=== PATIENT | female | born 1960 | race African-American/Black ===

== ENCOUNTER 2018-03-17 13:06 | Observation (INO) | payer BC, OTHER ==
[~2018-03-17] VITALS: Ht 157.5 cm; Wt 43.6 kg
[2018-03-17] MEDS ORDERED: IV NORMAL SALINE 1,000ML 1,000 ML IV ONE (14:00)
[2018-03-17 14:37] LABS: BASO # 0.1 x10^3/uL (0.0-0.2); BASO % 1 % (0-3); EOS % 0 % (0-3); HEMATOCRIT 34.3 % (36.0-47.0); HEMOGLOBIN 10.7 g/dL (12.0-15.5); LYMPH # 1.1 x10^3/uL (1.0-4.8); LYMPH % 24 % (24-48); MEAN CORPUSCULAR HEMOGLOBIN 28 pg (25-35); MEAN CORPUSCULAR HGB CONC 31 g/dL (31-37); MEAN CORPUSCULAR VOLUME 91 fL (79-100); MONO # 0.3 x10^3/uL (0.0-1.1); MONO % 7 % (0-9); NEUT # 3.2 x10^3uL (1.8-7.7); NEUT % 68 % (31-73); PLATELET COUNT 148 x10^3/uL (140-400); RED BLOOD COUNT 3.76 x10^6/uL (3.50-5.40); RED CELL DISTRIBUTION WIDTH 18.6 % (11.5-14.5); WHITE BLOOD COUNT 4.7 x10^3/uL (4.0-11.0)
[2018-03-17 14:56] LABS: ALBUMIN 4.1 g/dL (3.4-5.0); ALBUMIN/GLOBULIN RATIO 0.9 (1.0-1.7); CALCIUM 8.6 mg/dL (8.5-10.1); CREATININE 0.9 mg/dL (0.6-1.0); GFR 77.8; POTASSIUM 3.6 mmol/L (3.5-5.1); TOTAL BILIRUBIN 0.3 mg/dL (0.2-1.0); TOTAL PROTEIN 8.6 g/dL (6.4-8.2)
--- NOTE | 2018-03-17 16:14 | PHYS DOC ---
Past History Past Medical History: COPD, Depression, DVT, Other Past Surgical History: No Surgical History Alcohol Use: Heavy Drug Use: None Adult General Chief Complaint Chief Complaint: DEPRESSION HPI HPI Patient is a 57 year old F who presents with depression and alcohol intoxication. Nettie states that she drinks "a lot" of vodka daily. She states that she has been drinking for "a long time." According to her daughter it sounds like she has been drinking heavily over the past 2 years. She does wish to withdraw from alcohol and is looking for help doing so today. Her last drink was just prior to arrival. She has no associated symptoms. She has no other exacerbating or alleviating factors. Review of Systems Review of Systems Constitutional: Denies fever or chills [] Eyes: Denies change in visual acuity, redness, or eye pain [] HENT: Denies nasal congestion or sore throat [] Respiratory: Denies cough or shortness of breath [] Cardiovascular: No additional information not addressed in HPI [] GI: Denies abdominal pain, nausea, vomiting, bloody stools or diarrhea [] : Denies dysuria or hematuria [] Musculoskeletal: Denies back pain or joint pain [] Integument: Denies rash or skin lesions [] Neurologic: Denies headache, focal weakness or sensory changes [] Endocrine: Denies polyuria or polydipsia [] All other systems were reviewed and found to be within normal limits, except as documented in this note. Family History Family History No pertinent family medical history was reported Current Medications Current Medications Current Medications Medications (Trade) Dose Ordered Sig/[facility] Start Time Stop Time Status Last Admin Dose Admin Sodium Chloride 1,000 ml @ 1,000 mls/hr 1X ONCE 03/17/18 14:00 03/17/18 14:59 UNV 03/17/18 14:32 1,000 MLS/HR Physical Exam Physical Exam Constitutional: Well developed, well nourished, no acute distress, non-toxic appearance. [] HENT: Normocephalic, atraumatic, bilateral external ears normal, oropharynx moist, no oral exudates, nose normal. [] Eyes: EOMI, conjunctiva normal, no discharge. [] Neck: Normal range of motion, no tenderness, supple, no stridor. [] Cardiovascular:Heart rate regular rhythm, Lungs & Thorax: Bilateral breath sounds clear to auscultation [] Abdomen: Bowel sounds normal, soft, no tenderness, no masses, no pulsatile masses. [] Skin: Warm, dry, no erythema, no rash. [] Back: No tenderness, no CVA tenderness. [] Extremities: No tenderness, no cyanosis, no clubbing, ROM intact, no edema. [] Neurologic: Alert and oriented X 3, normal motor function, normal sensory function, no focal deficits noted. [] Psychologic: Affect normal, judgement normal, intoxicated. [] Current Patient Data Vital Signs Vital Signs Date Time Temp Pulse Resp B/P (MAP) Pulse Ox O2 Delivery O2 Flow Rate FiO2 03/17/18 14:11 99.0 96 22 100 Room Air Lab Results Laboratory Tests Test 03/17/18 14:10 White Blood Count 4.7 x10^3/uL (4.0-11.0) Red Blood Count 3.76 x10^6/uL (3.50-5.40) Hemoglobin 10.7 g/dL (12.0-15.5) L Hematocrit 34.3 % (36.0-47.0) L Mean Corpuscular Volume 91 fL (79-100) Mean Corpuscular Hemoglobin 28 pg (25-35) Mean Corpuscular Hemoglobin Concent 31 g/dL (31-37) Red Cell Distribution Width 18.6 % (11.5-14.5) H Platelet Count 148 x10^3/uL (140-400) Neutrophils (%) (Auto) 68 % (31-73) Lymphocytes (%) (Auto) 24 % (24-48) Monocytes (%) (Auto) 7 % (0-9) Eosinophils (%) (Auto) 0 % (0-3) Basophils (%) (Auto) 1 % (0-3) Neutrophils # (Auto) 3.2 x10^3uL (1.8-7.7) Lymphocytes # (Auto) 1.1 x10^3/uL (1.0-4.8) Monocytes # (Auto) 0.3 x10^3/uL (0.0-1.1) Eosinophils # (Auto) 0.0 x10^3/uL (0.0-0.7) Basophils # (Auto) 0.1 x10^3/uL (0.0-0.2) Sodium Level 139 mmol/L (136-145) Potassium Level 3.6 mmol/L (3.5-5.1) Chloride Level 99 mmol/L (98-107) Carbon Dioxide Level 13 mmol/L (21-32) L Anion Gap 27 (6-14) H Blood Urea Nitrogen 9 mg/dL (7-20) Creatinine 0.9 mg/dL (0.6-1.0) Estimated GFR (Cockcroft-Gault) 77.8 BUN/Creatinine Ratio 10 (6-20) Glucose Level 79 mg/dL (70-99) Calcium Level 8.6 mg/dL (8.5-10.1) Total Bilirubin 0.3 mg/dL (0.2-1.0) Aspartate Amino Transferase (AST) 43 U/L (15-37) H Alanine Aminotransferase (ALT) 25 U/L (14-59) Alkaline Phosphatase 80 U/L (46-116) Total Protein 8.6 g/dL (6.4-8.2) H Albumin 4.1 g/dL (3.4-5.0) Albumin/Globulin Ratio 0.9 (1.0-1.7) L Ethyl Alcohol Level 330 mg/dL (0-10) H EKG EKG [] Radiology/Procedures Radiology/Procedures [] Course & Med Decision Making Course & Med Decision Making Pertinent Labs and Imaging studies reviewed. (See chart for details) [] Dragon Disclaimer Dragon Disclaimer This electronic medical record was generated, in whole or in part, using a voice recognition dictation system. Departure Departure: Impression: Primary Impression: Alcohol withdrawal Disposition: 09 ADMITTED INPATIENT Admitting Physician: Edi Enriquez Condition: STABLE Referrals: BHUMIKA HUA MD (PCP) Problem Qualifiers Primary Impression: Alcohol withdrawal Complication of substance-induced condition: uncomplicated Qualified Codes: F10.230 - Alcohol dependence with withdrawal, uncomplicated KIM SANTANA MD Mar 17, 2018 16:14
[2018-03-17 16:17] LABS: BILIRUBIN,URINE NEG (NEG); CLARITY,URINE CLEAR; COLOR,URINE STRAW; GLUCOSE,URINE NEG (NEG)
[2018-03-17 16:18] LABS: BACTERIA,URINE 0 /HPF (0-FEW); NITRITE,URINE NEG (NEG); SQUAMOUS EPITHELIAL CELL,UR MANY /LPF; UROBILINOGEN,URINE 0.2 mg/dL (0.2 mg/dL); WBC,URINE OCC /HPF (0-4)
--- NOTE | 2018-03-17 16:59 | NUR ---
PT is able to verbalize understanding of orientation to unit and admission. PT admitted from ED and transferred to the care of Hal DICKENS. PT last drank 2 shots of vodka today and said yesterday was a 'bad day'. PT daughter talked her to come to ED today to seek care. PT is severely depressed to the point of not being able to carry out ADL, on top of her Alcoholism. PT is tearful and has daughter as support system. PT has been in and out of [facility] per daughter. Nayely Hatch EDI COORDINATOR CMSRN [place]-
[2018-03-17 17:39] VITALS: BP 166/84
[2018-03-17] MEDS: NICOTINE 21MG PATCH. TD SCH (20:03)
[2018-03-17] MEDS ORDERED: CHOL200074 PO (22:30)
[2018-03-17] MEDS ORDERED: CARV12.52 PO (22:30)
[2018-03-17] MEDS ORDERED: MIRT45TA3 PO (22:30)
[2018-03-17] MEDS: MEGESTROL 40 MG TABLET. PO SCH (22:30)
[2018-03-17] MEDS ORDERED: NITR0.4T22 SL (22:30)
[2018-03-17] MEDS ORDERED: CYAN10005 PO (22:30)
[2018-03-17] MEDS ORDERED: TIOT18CA IH (22:30)
[2018-03-17] MEDS ORDERED: MEGE20TA PO (22:30)
[2018-03-17] MEDS ORDERED: MIRTAZAPINE 15 MG TABLET PO SCH (22:30)
[2018-03-17] MEDS ORDERED: NITROGLYCERIN SUBLINGUAL 0.4 MG BOTTLE OF 25. SL PRN (22:30)
[2018-03-17 23:01] VITALS: BP 205/105
[2018-03-17] MEDS: CARVEDILOL 12.5 MG TABLET PO SCH (23:04)
[2018-03-18 05:16] VITALS: BP 178/88
[2018-03-18] MEDS ORDERED: ACETAMINOPHEN 325 MG TABLET PO PRN (07:45)
[2018-03-18] MEDS: NICOTINE 21MG PATCH. TD SCH (08:25)
[2018-03-18] MEDS: CARVEDILOL 12.5 MG TABLET PO SCH (08:25)
[2018-03-18] MEDS: MEGESTROL 40 MG TABLET. PO SCH ×2 (08:26→14:18)
[2018-03-18] MEDS ORDERED: CHOLECALCIFEROL (VITAMIN D3) 1,000 UNIT TABLET PO SCH (09:00)
[2018-03-18] MEDS ORDERED: CYANOCOBALAMIN (VITAMIN B-12) 1,000 MCG TABLET. PO SCH (09:00)
[2018-03-18] MEDS ORDERED: SPIRIVA INH SCH (09:00)
[2018-03-18] MEDS ORDERED: MVI, ADULT NO.4 WITH VIT K 10 ML, FOLIC ACID 1 MG, THIAMINE 100 MG in IV NORMAL SALINE ... IV SCH ×4 (09:00)
[2018-03-18 10:41] VITALS: BP 137/91
[2018-03-18 12:07] LABS: CALCIUM 8.9 mg/dL (8.5-10.1); CREATININE 0.9 mg/dL (0.6-1.0); GFR 77.8; POTASSIUM 3.7 mmol/L (3.5-5.1)
--- NOTE | 2018-03-18 14:41 | NUR ---
Discharge Note: JOYA TERRY [address] Discharge instructions and discharge home medications reviewed with PATIENT and a copy given. All questions have been answered and understanding verbalized. The following instructions and handouts were given: MEDICATIONS, FOLLOW UP INSTRUCTIONS, AND EDUCATIONAL HANDOUTS GIVEN. Discontinued lines and drains: PERIPHERAL IV DISCONTINUED WITH NO COMPLICATIONS. Patient discharged to HOME with DAUGHTER via PRIVATE VEHICLE.
--- NOTE | 2018-03-19 08:43 | SSS ---
ADMIT DATE: 03/18/2018 HISTORY OF PRESENT ILLNESS: The patient is a 57-year-old -[place] female patient who came to the Emergency Room with alcohol intoxication and depression. She states that she drinks a lot of vodka daily. She states that she has been drinking for a long time and for over the last 2 years and she came basically looking for help. She is feeling very depressed and lonely. She also had a very stressful job and stated that she sometimes feels that she is unable to continue doing it and she is looking into applying for disability. Unfortunately, the patient normally follows at [facility] and has been admitted multiple times at [facility] and also [facility] at the [place]. Mostly, she was seen by the multiple primary care physicians that work for the [facility]. She was basically admitted with alcohol intoxication and depression. Her last drink was prior to arrival and she was started on a banana bag and alcohol withdrawal protocol. PAST MEDICAL HISTORY: Significant for hypertension, generalized osteoarthritis and COPD. She also did complain of weight loss, unintentional about 25 pounds from 04/2017-11/2017. She apparently was extensively investigated and had upper and lower GI endoscopy for that. PAST SURGICAL HISTORY: Significant for two sections. She has also esophagogastroduodenoscopy gastroscopy and colonoscopy. ALLERGIES: She is allergic to PENICILLIN and what seems to be ERYTHROMYCIN. MEDICATIONS: She is currently on following medications: She is on Spiriva HandiHaler 1 inhalation once a day, nitroglycerin 0.4 mg sublingually every 5 minutes as needed, carvedilol 12.5 mg twice a day with food, mirtazapine 45 mg at bedtime. She is also on Megace 20 mg 3 times a day, cyanocobalamin 1000 mcg once a day, vitamin B12, vitamin D 2000 international unit once a day. FAMILY HISTORY: She has one brother who was killed at age 21. Her sister is 42 years old and healthy, and brother is 45 years old and healthy. Her father in his 70s because of CVA and mother in her 70s, but does not know the cause of that. SOCIAL HISTORY: She is , has 2 sons and 2 daughters. She smokes half a pack a day. She drinks up to 1 pint of vodka on a daily basis. 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 REVIEW OF SYSTEMS: The patient denied any blurring of vision, cataract, glaucoma or macular degeneration. Denied any earache, tinnitus or sensorineural deafness. Denied any nosebleeds, stuffy nose or postnasal drip. Denied any sore throat, sore tongue, toothache, hoarseness of voice or difficulty swallowing. Did complain of nausea, vomiting. Denied any hematemesis, melena or hematochezia. Denied any dysuria, frequency or hematuria. Denied any chest pain, shortness of breath, orthopnea or paroxysmal nocturnal dyspnea. PHYSICAL EXAMINATION: GENERAL: On arrival to the Emergency Room, she looked somewhat pale, but no jaundice or cyanosis. No lymphadenopathy, no thyromegaly. No jugular venous distension. No limb edema. VITAL SIGNS: Her heart rate was 96, blood pressure was 164/95, temperature was 99, respiratory rate 22 and oxygen saturation was 100%. HEENT: Showed she is normocephalic, atraumatic. NECK: Supple. HEART: Showed normal first and second sounds. No gallop, rub or murmur. CHEST: Clear to auscultation. No crepitation or rhonchi. ABDOMEN: Distended, soft, nontender. No guarding or rigidity. No organomegaly. Hernial orifice intact. Bowel sounds normal. NEUROLOGIC: She was awake, alert, responding appropriately. Cranial nerves intact. She moves extremities without difficulty. She ambulates without assistance or assistive devices. LABORATORY DATA: While in the Emergency Room, she had lab work done, which showed a serum sodium of 139, potassium 3.6, chloride 99, bicarbonate 13, anion gap of 27, BUN of 9, creatinine 0.9, estimated GFR was 77 mL per minute. Her glucose was 79, calcium was 8.6. Total bilirubin, AST, ALT, alkaline phosphatase were normal. Total protein was 8.6, albumin was 4.1. Her white cell count was 4700, hemoglobin 11, hematocrit 34, MCV 91, and platelet count of 148,000. Urinalysis showed the urine was straw colored, clear with a pH of 6, specific gravity of 1.015 with trace of the amount of protein, large amount of ketones, trace of blood, negative for nitrite and leukocyte esterase. There is only 1-2 rbc's, occasional wbc's, very few bacteria. Her toxicology screen showed her alcohol blood level was 330 mg. ASSESSMENT AND PLAN: The patient was admitted with alcohol intoxication, alcohol withdrawal, and depression. The patient was continued on her medication. Continued on banana bag as well as alcohol withdrawal protocol. We have had a lengthy discussion with her together with our social human services assistants and the plan was for her to be discharged home with arrangements for her to be followed by psychiatrist and the primary care physician from the [facility] for better continuity of care. She should continue on all her medication. FINAL DISCHARGE DIAGNOSES: Alcoholism and alcohol dependence and depression, hypertension. ADAM REED MD DR: DEENA/roxy JOB#: [id number] / [id number]
== END 2018-03-18 14:40 | disposition home or self-care (01) ==
LOC: ER 13:06 → 1 SOUTH 17:25 → INTOOBSV 17:25
PROVIDERS: ADMIT Internal Medicine; ATTEND Internal Medicine
DX: F10.229 Alcohol dependence with intoxication, unspecified (principal); F32.9 Major depressive disorder, single episode, unspecified; I10 Essential (primary) hypertension; M19.90 Unspecified osteoarthritis, unspecified site; J44.9 Chronic obstructive pulmonary disease, unspecified; Z82.3 Family history of stroke; F17.210 Nicotine dependence, cigarettes, uncomplicated
CPT/HCPCS: 36415; 80048; 80053; 81001; 85025; 96361; 96365; 96366; 97161; 97166; 99285; 99406; G0378; G0480; G8987; G8988; G0379; J7030

== ENCOUNTER 2018-08-28 15:11 | Inpatient (IN) | payer BC ==
[~2018-08-28] VITALS: Ht 154.9 cm; Wt 45.4 kg
[~2018-08-28 15:11] MED LIST: CARV12.52 PO; CHOL200074 PO; CYAN10005 PO; MEGE20TA PO; MIRT45TA58 PO; NITR0.4T22 SL; TIOT18CA IH
[2018-08-28] MEDS ORDERED: IV NORMAL SALINE 1,000ML 1,000 ML IV SCH (15:19)
[2018-08-28 15:41] LABS: BASO % 1 % (0-3); EOS % 1 % (0-3); HEMOGLOBIN 8.3 g/dL (12.0-15.5); LYMPH # 2.3 x10^3/uL (1.0-4.8); LYMPH % 37 % (24-48); MEAN CORPUSCULAR HEMOGLOBIN 28 pg (25-35); MEAN CORPUSCULAR HGB CONC 32 g/dL (31-37); MEAN CORPUSCULAR VOLUME 87 fL (79-100); MONO # 0.6 x10^3/uL (0.0-1.1); MONO % 10 % (0-9); NEUT # 3.2 x10^3uL (1.8-7.7); NEUT % 51 % (31-73); PLATELET COUNT 83 x10^3/uL (140-400); RED BLOOD COUNT 2.99 x10^6/uL (3.50-5.40); RED CELL DISTRIBUTION WIDTH 15.9 % (11.5-14.5); WHITE BLOOD COUNT 6.2 x10^3/uL (4.0-11.0)
[2018-08-28 15:53] LABS: BACTERIA,URINE 0 /HPF (0-FEW); BILIRUBIN,URINE LARGE (NEG); CLARITY,URINE HAZY; COLOR,URINE AMBER; GLUCOSE,URINE NEG (NEG); NITRITE,URINE NEG (NEG); RBC,URINE 0 /HPF (0-2); SQUAMOUS EPITHELIAL CELL,UR OCC /LPF; UROBILINOGEN,URINE 1 mg/dL (0.2 mg/dL); WBC,URINE 0 /HPF (0-4)
[2018-08-28 15:54] LABS: AMORPHOUS SEDIMENT,UR PRESENT /HPF; HYALINE CASTS, URINE MOD /HPF
[2018-08-28 16:04] LABS: ALBUMIN 4.1 g/dL (3.4-5.0); CALCIUM 9.3 mg/dL (8.5-10.1); CREATININE 1.6 mg/dL (0.6-1.0); GFR 40.1; MAGNESIUM 1.5 mg/dL (1.8-2.4); POTASSIUM 3.4 mmol/L (3.5-5.1); TOTAL BILIRUBIN 0.4 mg/dL (0.2-1.0); TOTAL PROTEIN 8.3 g/dL (6.4-8.2)
--- NOTE | 2018-08-28 16:04 | RAD ---
EXAM: Chest, single view. HISTORY: Altered level of consciousness. COMPARISON: None. FINDINGS: A frontal view of the chest is obtained. There is no infiltrate, pleural effusion or pneumothorax. The heart is normal in size. IMPRESSION: No acute pulmonary finding. Electronically signed by: Tracey Ovalles MD (08/28/2018 4:01 PM) [facility]
--- NOTE | 2018-08-28 16:04 | RAD ---
EXAM: Head CT without contrast. HISTORY: Mental status changes. TECHNIQUE: Computed tomographic images of the head were obtained without contrast. *One or more of the following individualized dose reduction techniques were utilized for this examination: 1. Automated exposure control. 2. Adjustment of the mA and/or kV according to patient size. 3. Use of iterative reconstruction technique. COMPARISON: None. FINDINGS: There is no acute or subacute extra-axial or intraparenchymal hemorrhage. There is no mass effect or midline shift. There is no hydrocephalus. There are areas of decreased attenuation within the cerebral white matter, nonspecific and likely related to chronic small vessel disease. There is cerebral atrophy. The visualized portions of the orbits, paranasal sinuses and mastoid air cells are unremarkable. No suspicious calvarial lesion is seen. IMPRESSION: 1. No acute intercranial finding. Note is made that MRI is more sensitive for acute infarction. 2. Decreased attenuation within the cerebral white matter, likely due to chronic small vessel disease. 3. Cerebral atrophy. Electronically signed by: Tracey Ovalles MD (08/28/2018 4:01 PM) [facility]
[2018-08-28 16:06] LABS: AMPHETAMINE/METHAMPHETAMINE NEG (NEG); BARBITURATES NEG (NEG); BENZODIAZEPINES NEG (NEG); CANNABINOIDS POS (NEG); COCAINE NEG (NEG); METHADONE NEG (NEG); OPIATES NEG (NEG); PHENCYCLIDINE NEG (NEG)
[2018-08-28 16:14] LABS: HYPOCHROMIA SLIGHT; PLT ESTIMATE DECREASED (ADEQUATE)
[2018-08-28 16:15] LABS: ANISOCYTOSIS SLIGHT; OVALOCYTES OCC; SCHISTOCYTES OCC; TARGET CELLS FEW
[2018-08-28] MEDS ORDERED: FAMOTIDINE 20 MG/2 ML VIAL IVP ONE (16:30)
--- NOTE | 2018-08-28 16:52 | PHYS DOC ---
Past History Past Medical History: Alcoholism, COPD, Depression, DVT, Other Past Surgical History: No Surgical History Alcohol Use: Heavy Drug Use: None Adult General Chief Complaint Chief Complaint: generalized weakness HPI HPI Patient is a 57 year old female who presents with complaining of generalized weakness and not feeling good for 2 weeks. Patient states she was not able to eat and drink for the last 2 weeks because of generalized weakness and not having appetite. Patient states she had episodes of slurred speech yesterday and today. Patient denies focal neuro deficit, headache, fever and chills or nausea and vomiting. Patient had history of alcohol abuse and alcoholism since age of states she did not drink alcohol like her normal for the last 2 weeks but had 2 shots of bourbon last night. Review of Systems Review of Systems Constitutional: Denies fever or chills [] Eyes: Denies change in visual acuity, redness, or eye pain [] HENT: Denies nasal congestion or sore throat [] Respiratory: Denies cough or shortness of breath [] Cardiovascular: No additional information not addressed in HPI [] GI: Denies abdominal pain, nausea, vomiting, bloody stools or diarrhea [] : Denies dysuria or hematuria [] Musculoskeletal: Denies back pain or joint pain [] Integument: Denies rash or skin lesions [] Neurologic: Denies headache, focal weakness or sensory changes [] Endocrine: Denies polyuria or polydipsia [] All other systems were reviewed and found to be within normal limits, except as documented in this note. Current Medications Current Medications Current Medications Medications (Trade) Dose Ordered Sig/Suzanne Start Time Stop Time Status Last Admin Dose Admin Ceftriaxone Sodium 1 gm/ Sodium Chloride 50 ml @ 100 mls/hr 1X ONCE 08/28/18 16:45 08/28/18 17:14 UNV Famotidine (Pepcid Vial) 20 mg 1X ONCE 08/28/18 16:30 08/28/18 16:32 DC Magnesium Oxide (Magnesium Oxide) 400 mg 1X ONCE 08/28/18 16:45 08/28/18 16:46 UNV Potassium Chloride (Klor-Con) 40 meq 1X ONCE 08/28/18 16:45 08/28/18 16:46 UNV Sodium Chloride 1,000 ml @ 1,000 mls/hr Q1H 08/28/18 15:19 08/28/18 16:18 DC 08/28/18 15:29 1,000 MLS/HR Allergies Allergies Allergies Coded Allergies Type Severity Reaction Last Updated Verified Penicillins Allergy Mild Anaphylaxis 03/17/18 Yes Physical Exam Physical Exam Constitutional: Well developed, mild distress, non-toxic appearance, smell of alcohol on breath. [] HENT: Normocephalic, atraumatic, oropharynx dry, no oral exudates, nose normal. [] Eyes: PERRLA, EOMI, conjunctiva normal, no discharge, pallor. [] Neck: Normal range of motion, no tenderness, supple, no stridor. [] Cardiovascular:Heart rate regular rhythm, no murmur [] Lungs & Thorax: Bilateral breath sounds clear to auscultation [] Abdomen: Bowel sounds normal, soft, no tenderness, no masses, no pulsatile masses. [] Skin: Warm, dry, no erythema, no rash. [] Back: No tenderness, no CVA tenderness. [] Extremities: No tenderness, no cyanosis, no clubbing, ROM intact, no edema. [] Neurologic: Alert and oriented X 3, normal motor function, normal sensory function, no focal deficits noted. [] Psychologic: Affect normal, judgement normal, mood normal. [] Current Patient Data Vital Signs Vital Signs Date Time Temp Pulse Resp B/P (MAP) Pulse Ox O2 Delivery O2 Flow Rate FiO2 08/28/18 15:11 97.8 73 16 100 Room Air Lab Results Laboratory Tests Test 08/28/18 15:19 08/28/18 15:22 Urine Collection Type U cath Urine Color Sania Urine Clarity Hazy Urine pH 5.5 Urine Specific [place] 1.025 Urine Protein >100 mg/dl (NEG-TRACE) Urine Glucose (UA) Neg mg/dL (NEG) Urine Ketones (Stick) >=160 mg/dL (NEG) Urine Blood Neg (NEG) Urine Nitrite Neg (NEG) Urine Bilirubin Large (NEG) Urine Urobilinogen Dipstick 1 mg/dL (0.2 mg/dL) Urine Leukocyte Esterase Neg (NEG) Urine RBC 0 /HPF (0-2) Urine WBC 0 /HPF (0-4) Urine Squamous Epithelial Cells Occ /LPF Urine Amorphous Sediment Present /HPF Urine Bacteria 0 /HPF (0-FEW) Urine Hyaline Casts Mod /HPF Urine Mucus Slight /LPF Urine Opiates Screen Neg (NEG) Urine Methadone Screen Neg (NEG) Urine Barbiturates Neg (NEG) Urine Phencyclidine Screen Neg (NEG) Urine Amphetamine/Methamphetamine Neg (NEG) Urine Benzodiazepines Screen Neg (NEG) Urine Cocaine Screen Neg (NEG) Urine Cannabinoids Screen Pos (NEG) Urine Ethyl Alcohol Pos (NEG) White Blood Count 6.2 x10^3/uL (4.0-11.0) Red Blood Count 2.99 x10^6/uL (3.50-5.40) L Hemoglobin 8.3 g/dL (12.0-15.5) L Hematocrit 26.0 % (36.0-47.0) L Mean Corpuscular Volume 87 fL (79-100) Mean Corpuscular Hemoglobin 28 pg (25-35) Mean Corpuscular Hemoglobin Concent 32 g/dL (31-37) Red Cell Distribution Width 15.9 % (11.5-14.5) H Platelet Count 83 x10^3/uL (140-400) L Neutrophils (%) (Auto) 51 % (31-73) Lymphocytes (%) (Auto) 37 % (24-48) Monocytes (%) (Auto) 10 % (0-9) H Eosinophils (%) (Auto) 1 % (0-3) Basophils (%) (Auto) 1 % (0-3) Neutrophils # (Auto) 3.2 x10^3uL (1.8-7.7) Lymphocytes # (Auto) 2.3 x10^3/uL (1.0-4.8) Monocytes # (Auto) 0.6 x10^3/uL (0.0-1.1) Eosinophils # (Auto) 0.0 x10^3/uL (0.0-0.7) Basophils # (Auto) 0.0 x10^3/uL (0.0-0.2) Platelet Estimate Decreased (ADEQUATE) Hypochromasia Slight Anisocytosis Slight Target Cells Few Ovalocytes Occ Schistocytes Occ Prothrombin Time 9.4 SEC (9.4-11.4) Prothrombin Time INR 0.9 (0.9-1.1) PTT 23 SEC (23-33) Sodium Level 134 mmol/L (136-145) L Potassium Level 3.4 mmol/L (3.5-5.1) L Chloride Level 93 mmol/L (98-107) L Carbon Dioxide Level 17 mmol/L (21-32) L Anion Gap 24 (6-14) H Blood Urea Nitrogen 25 mg/dL (7-20) H Creatinine 1.6 mg/dL (0.6-1.0) H Estimated GFR (Cockcroft-Gault) 40.1 BUN/Creatinine Ratio 16 (6-20) Glucose Level 98 mg/dL (70-99) Lactic Acid Level 2.3 mmol/L (0.4-2.0) H Calcium Level 9.3 mg/dL (8.5-10.1) Magnesium Level 1.5 mg/dL (1.8-2.4) L Total Bilirubin 0.4 mg/dL (0.2-1.0) Aspartate Amino Transferase (AST) 42 U/L (15-37) H Alanine Aminotransferase (ALT) 30 U/L (14-59) Alkaline Phosphatase 50 U/L (46-116) Ammonia < 10 mcmol/L (11-34) L Creatine Kinase 148 U/L (26-192) Troponin I Quantitative < 0.017 ng/mL (0-0.055) QO-Hwm-V-Type Natriuretic Peptide 565 pg/mL (0-124) H Total Protein 8.3 g/dL (6.4-8.2) H Albumin 4.1 g/dL (3.4-5.0) Albumin/Globulin Ratio 1.0 (1.0-1.7) Lipase 643 U/L (73-393) H Ethyl Alcohol Level 193 mg/dL (0-10) H EKG EKG Page interpreted by me. EKG at at 1524 showed normal sinus rhythm at rate of 64 , poor R-wave progress in anteroseptal leads, T-wave abnormality in anterior leads, no acute ST or T-wave abnormalities Radiology/Procedures Radiology/Procedures [address] [address] IMAGING REPORT Signed PATIENT: JOYA TERRY ACCOUNT: [id number] : 1960 LOCATION: ER AGE: 57 SEX: F EXAM STATUS: REG ER ORD. PHYSICIAN: KATH BALES MD REASON: ALOC PROCEDURE: PORTABLE CHEST 1V EXAM: Chest, single view. HISTORY: Altered level of consciousness. COMPARISON: None. FINDINGS: A frontal view of the chest is obtained. There is no infiltrate, pleural effusion or pneumothorax. The heart is normal in size. IMPRESSION: No acute pulmonary finding. Electronically signed by: Tracey Ochoa MD (08/28/2018 4:01 PM) [facility] DICTATED AND SIGNED BY: TRACEY OCHOA MD DATE: 08/28/181600 CC: KATH BALES MD; BHUMIKA HUA MD ~ [address] [address] IMAGING REPORT Signed PATIENT: JOYA TERRY ACCOUNT: [id number] : 1960 LOCATION: ER AGE: 57 SEX: F EXAM STATUS: REG ER ORD. PHYSICIAN: KATH BALES MD REASON: ALOC PROCEDURE: CT HEAD WO CONTRAST EXAM: Head CT without contrast. HISTORY: Mental status changes. TECHNIQUE: Computed tomographic images of the head were obtained without contrast. *One or more of the following individualized dose reduction techniques were utilized for this examination: 1. Automated exposure control. 2. Adjustment of the mA and/or kV according to patient size. 3. Use of iterative reconstruction technique. COMPARISON: None. FINDINGS: There is no acute or subacute extra-axial or intraparenchymal hemorrhage. There is no mass effect or midline shift. There is no hydrocephalus. There are areas of decreased attenuation within the cerebral white matter, nonspecific and likely related to chronic small vessel disease. There is cerebral atrophy. The visualized portions of the orbits, paranasal sinuses and mastoid air cells are unremarkable. No suspicious calvarial lesion is seen. IMPRESSION: 1. No acute intercranial finding. Note is made that MRI is more sensitive for acute infarction. 2. Decreased attenuation within the cerebral white matter, likely due to chronic small vessel disease. 3. Cerebral atrophy. Electronically signed by: Tracey Ochoa MD (08/28/2018 4:01 PM) [facility] Course & Med Decision Making Course & Med Decision Making Pertinent Labs and Imaging studies reviewed. (See chart for details) Evaluation of patient in ER showed 57-year-old old female patient with complaining of generalized weakness for 2 weeks. Patient had history of alcohol abuse and smell of alcohol in her breath blood alcohol of 193. Patient did not have leukocytosis. She had thrombocytopenia and anemia with low magnesium and potassium and renal insufficiency. UA did not show infection. Lactic acid was 2.3 and patient had [address] Enriquez accepted admission at 1644. Dragon Disclaimer Dragon Disclaimer This electronic medical record was generated, in whole or in part, using a voice recognition dictation system. Departure Departure: Impression: Primary Impression: Generalized weakness Additional Impressions: Hypomagnesemia Hypokalemia Alcohol abuse Anemia Renal insufficiency Pancreatitis Elevated lactic acid level Tobacco abuse Tobacco abuse counseling Thrombocytopenia Disposition: 09 ADMITTED INPATIENT (at 1645) Admitting Physician: Edi Enriquez (accepted admission at 1644) Condition: IMPROVED Referrals: BHUMIKA HUA MD (PCP) Problem Qualifiers KATH BALES MD Aug 28, 2018 16:52
[2018-08-28] MEDS ORDERED: POTASSIUM CHLORIDE 20 MEQ TABLET.ER. PO ONE (17:00)
[2018-08-28] MEDS ORDERED: MAGNESIUM OXIDE 400 MG TABLET PO ONE (17:00)
[2018-08-28] MEDS ORDERED: IV NORMAL SALINE 50ML 50 ML ONE (17:06)
[2018-08-28] MEDS ORDERED: cefTRIAXone SODIUM 1 GM VIAL IV ONE (17:07)
[2018-08-28] MEDS: IV NORMAL SALINE 1,000ML 1,000 ML IV SCH (17:12)
[2018-08-28] MEDS ORDERED: MVI, ADULT NO.4 WITH VIT K 10 ML, FOLIC ACID INJ 1 MG, THIAMINE INJ 100 MG in IV NORMAL... IV ONE ×4 (17:30)
[2018-08-28 17:45] VITALS: BP 111/71
[2018-08-28] MEDS ORDERED: LORazepam 2 MG/ML VIAL IV PRN ×2 (18:00)
[2018-08-28 19:09] VITALS: BP 133/80
[2018-08-28] MEDS ORDERED: MAGNESIUM SULFATE 2GM 50 ML IV ONE (21:00)
[2018-08-28 22:16] VITALS: BP 128/78
[2018-08-29] MEDS: IV NORMAL SALINE 1,000ML 1,000 ML IV SCH ×2 (02:52→20:25)
[2018-08-29] MEDS ORDERED: PARO10TA3 PO (05:06)
[2018-08-29] MEDS ORDERED: MELO7.5T29 PO (05:06)
[2018-08-29] MEDS ORDERED: BUPR-192 PO (05:06)
[2018-08-29] MEDS: ALBUTEROL SULFATE 2.5 MG/3 ML NEBU. NEB SCH ×4 (05:27→20:12)
[2018-08-29] MEDS ORDERED: MEGE625O PO (05:57)
[2018-08-29 06:12] VITALS: BP 162/84
[2018-08-29 06:18] LABS: BASO % 1 % (0-3); EOS # 0.1 x10^3/uL (0.0-0.7); EOS % 1 % (0-3); HEMATOCRIT 26.1 % (36.0-47.0); HEMOGLOBIN 8.3 g/dL (12.0-15.5); LYMPH # 1.9 x10^3/uL (1.0-4.8); LYMPH % 28 % (24-48); MEAN CORPUSCULAR HEMOGLOBIN 28 pg (25-35); MEAN CORPUSCULAR HGB CONC 32 g/dL (31-37); MEAN CORPUSCULAR VOLUME 88 fL (79-100); MONO # 0.8 x10^3/uL (0.0-1.1); MONO % 11 % (0-9); NEUT # 4.2 x10^3uL (1.8-7.7); NEUT % 60 % (31-73); PLATELET COUNT 82 x10^3/uL (140-400); RED BLOOD COUNT 2.97 x10^6/uL (3.50-5.40); RED CELL DISTRIBUTION WIDTH 15.7 % (11.5-14.5)
[2018-08-29 06:37] LABS: ALBUMIN 3.6 g/dL (3.4-5.0); ALBUMIN/GLOBULIN RATIO 0.9 (1.0-1.7); CALCIUM 8.4 mg/dL (8.5-10.1); CREATININE 1.1 mg/dL (0.6-1.0); GFR 61.7; MAGNESIUM 2.1 mg/dL (1.8-2.4); POTASSIUM 3.4 mmol/L (3.5-5.1); TOTAL BILIRUBIN 0.6 mg/dL (0.2-1.0); TOTAL PROTEIN 7.6 g/dL (6.4-8.2)
[2018-08-29] MEDS: NICOTINE 21MG PATCH. TD SCH ×2 (07:21→07:24)
[2018-08-29] MEDS: MEGESTROL 400 MG/10 ML ORAL.SUSP. PO SCH ×2 (07:21→11:43)
[2018-08-29] MEDS: MELOXICAM 7.5 MG TABLET PO SCH (08:11)
[2018-08-29] MEDS: buPROPion XL 150 MG TAB.ER.24H PO SCH (08:11)
[2018-08-29] MEDS: CARVEDILOL 12.5 MG TABLET PO SCH ×2 (08:11→17:18)
[2018-08-29] MEDS: CHOLECALCIFEROL (VITAMIN D3) 1,000 UNIT TABLET PO SCH (08:11)
[2018-08-29] MEDS: PARoxetine 10 MG TABLET PO SCH (09:13)
[2018-08-29] MEDS: MVI, ADULT NO.4 WITH VIT K 10 ML, THIAMINE INJ 100 MG, FOLIC ACID INJ 1 MG in IV NORMAL... IV SCH ×4 (09:13)
[2018-08-29] MEDS ORDERED: ACETAMINOPHEN 500 MG TABLET PO PRN (10:15)
[2018-08-29 11:49] VITALS: BP 121/71
--- NOTE | 2018-08-29 12:27 | PDOC1 ---
History and Physical Date of Admission: Date of Admission: 08/28/18 Chief Complaint: Chief Complain: Alcohol intoxication Source: Source: Caregiver, Chart review, Patient HPI: HPI: Patient is a 57-year-old female who initially presented to the emergency department complaining of generalized weakness and just not feeling well for about 2 weeks. ED records indicate that the patient hadn't been eating or drinking much during that time with weakness and decreased appetite. She denied any trauma, no fever chills nausea or vomiting, was having some epigastric abdominal discomfort and slurred speech noted by staff in the emergency department. Patient had history of alcohol abuse, denied history of alcohol withdrawal and states she hadn't had anything to drink for the past 2 weeks but admits to 2 shots of bourbon on the night prior to ED arrival. In the ED her vital signs were stable, EKG was normal sinus rhythm at 64 bpm poor R-wave progression and nonspecific T abnormalities. Portable chest x-ray was unremarkable, CT of the head without contrast showed nothing acute, there was evidence of chronic small vessel disease and cerebral atrophy. Urine drug screen positive for cannabinoids, serum alcohol level 193. White blood cell count 6.2, hemoglobin 8.3 normocytic, platelets 83,000, coags were normal, sodium 134, potassium 3.4, B UN 25, creatinine 1.6, lactic acid 2.3, magnesium 1.5, first set of cardiac enzymes negative, lipase 643. Patient was admitted with alcohol intoxication and pancreatitis for bowel rest and hydration as well as to monitor for signs of alcohol withdrawal. Past Medical History: Pulmonary: COPD Heme/Onc: Other (DVT) Psych: Addictions, Depression Social History: Smoke: <1 pack per day Alcohol: heavy Drugs: Marijuana Allergies: Allergies: Coded Allergies: erythromycin base (Verified Allergy, Intermediate, DIARRHEA, 08/28/18) Penicillins (Verified Allergy, Mild, Anaphylaxis, 08/28/18) TODAY PT DENIES ANY ALLERGY TO PCN Current Medications: Current Medications: Current Medications Medications (Trade) Dose Ordered Sig/Suzanne Start Time Stop Time Status Last Admin Dose Admin Acetaminophen (Tylenol) 500 mg PRN Q6HRS PRN 08/29/18 10:15 08/29/18 10:15 DC Albuterol Sulfate (Ventolin) 2.5 mg RTQID 08/29/18 08:00 08/29/18 11:34 2.5 MG Bupropion HCl (Wellbutrin Xl) 150 mg DAILY 08/29/18 09:00 08/29/18 08:11 150 MG Carvedilol (Coreg) 12.5 mg BIDWMEALS 08/29/18 08:00 08/29/18 08:11 12.5 MG Ceftriaxone Sodium 1 gm/ Sodium Chloride 50 ml @ 100 mls/hr 1X ONCE 08/28/18 17:00 08/28/18 17:29 DC 08/28/18 17:11 100 MLS/HR Ceftriaxone Sodium (Rocephin) 1 gm STK-MED ONCE 08/28/18 17:07 08/28/18 17:08 DC Famotidine (Pepcid Vial) 20 mg 1X ONCE 08/28/18 16:30 08/28/18 16:32 DC 08/28/18 17:11 20 MG Lorazepam (Ativan) 4 mg PRN Q1HR PRN 08/28/18 18:00 Magnesium Oxide (Magnesium Oxide) 400 mg 1X ONCE 08/28/18 17:00 08/28/18 17:01 DC Magnesium Sulfate 50 ml @ 25 mls/hr 1X ONCE 08/28/18 21:00 08/28/18 22:59 DC 08/28/18 19:44 25 MLS/HR Megestrol Acetate (Megace) 400 mg BIDACBL 08/29/18 07:30 08/29/18 11:43 400 MG Meloxicam (Mobic) 7.5 mg DAILY 08/29/18 09:00 08/29/18 08:11 7.5 MG Mirtazapine (Remeron) 45 mg QHS 08/29/18 21:00 Multivitamins/ Minerals 10 ml/ Folic Acid 1 mg/ Thiamine HCl 100 mg/Sodium Chloride 1,011.2 ml @ 0 mls/hr 1X ONCE 08/28/18 17:30 08/28/18 17:31 DC 08/28/18 17:30 100 MLS/HR Multivitamins/ Minerals 10 ml/ Thiamine HCl 100 mg/Folic Acid 1 mg/Sodium Chloride 1,011.2 ml @ 100 mls/ hr DAILY 08/29/18 09:00 09/03/18 08:59 08/29/18 09:13 100 MLS/HR Nicotine (Nicoderm Cq 21mg) 1 patch DAILY 08/29/18 07:00 08/29/18 07:21 1 PATCH Paroxetine HCl (Paxil) 10 mg DAILY 08/29/18 09:00 08/29/18 09:13 10 MG Potassium Chloride (Klor-Con) 40 meq 1X ONCE 08/28/18 17:00 08/28/18 17:01 DC Sodium Chloride 50 ml @ As Directed STK-MED ONCE 08/28/18 17:06 08/28/18 17:07 DC Vitamin D (Vitamin D3) 2,000 unit DAILY 08/29/18 09:00 08/29/18 08:11 2,000 UNIT ROS: ROS: Constitutional: No fever or chills Eyes: No eye pain or blurred vision Skin: No rash or itching Cardiovascular: No chest pain, syncope, palpitations, dyspnea on exertion, or edema Respiratory: No cough or difficulty breathing Gastrointestinal: Positive for nausea and epigastric abdominal discomfort ( consistent with prior pancreatitis symptoms) Neurologic: No headaches or focal neurologic deficits Endocrine: No heat or cold intolerance Genitourinary: No incontinence or hematuria Musculoskeletal: No joint pain or swelling Lymphatics: No enlarged lymph nodes Psychiatric: No anxiety or depression PE: PE: Gen.: Lying in bed asleep, lethargic arousable to verbal stimuli, no apparent distress HEENT: Normocephalic atraumatic, PERRLA EOMI, mild scleral icterus, oral mucosa pink and moist Neck: Supple, no lymphadenopathy, nontender Cardiovascular: Normal S1 and S2 no murmurs Pulmonary: Lungs are clear bilaterally with good air movement no respiratory distress Abdomen: Soft mildly distended, epigastric tenderness without rebound or guarding no skin changes, bowel sounds present no masses Extremities: No clubbing, cyanosis or edema Neuro: Alert and oriented 3, cranial nerves II through XII grossly intact, no tremor or pronator drift, no lateralizing neuro deficits Skin: Warm, dry Vitals: Vitals: Vital Signs Date Time Temp Pulse Resp B/P (MAP) Pulse Ox O2 Delivery O2 Flow Rate FiO2 08/29/18 11:49 98.9 63 18 121/71 (88) 100 Room Air Labs: Labs: Laboratory Tests Test 08/28/18 15:19 08/28/18 15:22 08/28/18 19:18 08/29/18 06:01 Urine Collection Type U cath Urine Color Sania Urine Clarity Hazy Urine pH 5.5 Urine Specific [place] 1.025 Urine Protein >100 mg/dl (NEG-TRACE) Urine Glucose (UA) Neg mg/dL (NEG) Urine Ketones (Stick) >=160 mg/dL (NEG) Urine Blood Neg (NEG) Urine Nitrite Neg (NEG) Urine Bilirubin Large (NEG) Urine Urobilinogen Dipstick 1 mg/dL (0.2 mg/dL) Urine Leukocyte Esterase Neg (NEG) Urine RBC 0 /HPF (0-2) Urine WBC 0 /HPF (0-4) Urine Squamous Epithelial Cells Occ /LPF Urine Amorphous Sediment Present /HPF Urine Bacteria 0 /HPF (0-FEW) Urine Hyaline Casts Mod /HPF Urine Mucus Slight /LPF Urine Opiates Screen Neg (NEG) Urine Methadone Screen Neg (NEG) Urine Barbiturates Neg (NEG) Urine Phencyclidine Screen Neg (NEG) Urine Amphetamine/Methamphetamine Neg (NEG) Urine Benzodiazepines Screen Neg (NEG) Urine Cocaine Screen Neg (NEG) Urine Cannabinoids Screen Pos (NEG) Urine Ethyl Alcohol Pos (NEG) White Blood Count 6.2 x10^3/uL (4.0-11.0) 7.0 x10^3/uL (4.0-11.0) Red Blood Count 2.99 x10^6/uL (3.50-5.40) 2.97 x10^6/uL (3.50-5.40) Hemoglobin 8.3 g/dL (12.0-15.5) 8.3 g/dL (12.0-15.5) Hematocrit 26.0 % (36.0-47.0) 26.1 % (36.0-47.0) Mean Corpuscular Volume 87 fL (79-100) 88 fL (79-100) Mean Corpuscular Hemoglobin 28 pg (25-35) 28 pg (25-35) Mean Corpuscular Hemoglobin Concent 32 g/dL (31-37) 32 g/dL (31-37) Red Cell Distribution Width 15.9 % (11.5-14.5) 15.7 % (11.5-14.5) Platelet Count 83 x10^3/uL (140-400) 82 x10^3/uL (140-400) Neutrophils (%) (Auto) 51 % (31-73) 60 % (31-73) Lymphocytes (%) (Auto) 37 % (24-48) 28 % (24-48) Monocytes (%) (Auto) 10 % (0-9) 11 % (0-9) Eosinophils (%) (Auto) 1 % (0-3) 1 % (0-3) Basophils (%) (Auto) 1 % (0-3) 1 % (0-3) Neutrophils # (Auto) 3.2 x10^3uL (1.8-7.7) 4.2 x10^3uL (1.8-7.7) Lymphocytes # (Auto) 2.3 x10^3/uL (1.0-4.8) 1.9 x10^3/uL (1.0-4.8) Monocytes # (Auto) 0.6 x10^3/uL (0.0-1.1) 0.8 x10^3/uL (0.0-1.1) Eosinophils # (Auto) 0.0 x10^3/uL (0.0-0.7) 0.1 x10^3/uL (0.0-0.7) Basophils # (Auto) 0.0 x10^3/uL (0.0-0.2) 0.0 x10^3/uL (0.0-0.2) Platelet Estimate Decreased (ADEQUATE) Hypochromasia Slight Anisocytosis Slight Target Cells Few Ovalocytes Occ Schistocytes Occ Prothrombin Time 9.4 SEC (9.4-11.4) Prothromb Time International Ratio 0.9 (0.9-1.1) Activated Partial Thromboplast Time 23 SEC (23-33) Sodium Level 134 mmol/L (136-145) 136 mmol/L (136-145) Potassium Level 3.4 mmol/L (3.5-5.1) 3.4 mmol/L (3.5-5.1) Chloride Level 93 mmol/L (98-107) 101 mmol/L (98-107) Carbon Dioxide Level 17 mmol/L (21-32) 18 mmol/L (21-32) Anion Gap 24 (6-14) 17 (6-14) Blood Urea Nitrogen 25 mg/dL (7-20) 19 mg/dL (7-20) Creatinine 1.6 mg/dL (0.6-1.0) 1.1 mg/dL (0.6-1.0) Estimated GFR (Cockcroft-Gault) 40.1 61.7 BUN/Creatinine Ratio 16 (6-20) 17 (6-20) Glucose Level 98 mg/dL (70-99) 93 mg/dL (70-99) Lactic Acid Level 2.3 mmol/L (0.4-2.0) 1.2 mmol/L (0.4-2.0) Calcium Level 9.3 mg/dL (8.5-10.1) 8.4 mg/dL (8.5-10.1) Magnesium Level 1.5 mg/dL (1.8-2.4) 2.1 mg/dL (1.8-2.4) Total Bilirubin 0.4 mg/dL (0.2-1.0) 0.6 mg/dL (0.2-1.0) Aspartate Amino Transf (AST/SGOT) 42 U/L (15-37) 30 U/L (15-37) Alanine Aminotransferase (ALT/SGPT) 30 U/L (14-59) 25 U/L (14-59) Alkaline Phosphatase 50 U/L (46-116) 52 U/L (46-116) Ammonia < 10 mcmol/L (11-34) Creatine Kinase 148 U/L (26-192) Troponin I Quantitative < 0.017 ng/mL (0-0.055) BU-Wsp-H-Type Natriuretic Peptide 565 pg/mL (0-124) Total Protein 8.3 g/dL (6.4-8.2) 7.6 g/dL (6.4-8.2) Albumin 4.1 g/dL (3.4-5.0) 3.6 g/dL (3.4-5.0) Albumin/Globulin Ratio 1.0 (1.0-1.7) 0.9 (1.0-1.7) Lipase 643 U/L (73-393) 734 U/L (73-393) Ethyl Alcohol Level 193 mg/dL (0-10) VTE Prophylaxis: VTE Prophylaxis Devices: No VTE Pharmacological Prophylaxi: No Assessment/Plan: A/P: Alcohol intoxication Pancreatitis Acute kidney injury Hypokalemia/hypomagnesemia Normocytic anemia with thrombocytopenia Metabolic acidosis Mild malnutrition Marijuana abuse Patient will be admitted for bowel rest and hydration/electrolyte replacement. [facility] protocol to monitor for alcohol withdrawal symptoms, follow labs. CHRISTOPHER MARTI DO Aug 29, 2018 12:27
[2018-08-29 16:25] VITALS: BP 133/75
--- NOTE | 2018-08-29 17:30 | EKG ---
[address] [address] Test Date: 2018-08-28 Test Time: 15:24:30 Pat Name: JOYA TERRY Department: Room: 124 A Gender: F Car Pilot: : 1960 Requested By: KATH BALES Order Number: [id number] Reading MD: Bebeto Resendiz MD Measurements Intervals [place] Rate: 64 P: 49 [place]: 120 QRS: 56 QRSD: 76 T: 94 QT: 464 QTc: 483 Interpretive Statements SINUS RHYTHM QRS(T) CONTOUR ABNORMALITY CONSISTENT WITH ANTEROSEPTAL INFARCT AGE UNDETERMINED LVH PROBABLE Electronically Signed On 08-31-2018 12:15:07 CDT by Bebeto Resendiz MD
[2018-08-29 20:34] VITALS: BP 144/76
[2018-08-29] MEDS: MIRTAZAPINE 30 MG TABLET PO SCH (22:36)
[2018-08-30 00:20] VITALS: BP 172/85
[2018-08-30] MEDS ORDERED: ACETAMINOPHEN 325 MG TABLET PO PRN (01:00)
[2018-08-30 04:30] LABS: BASO # 0.1 x10^3/uL (0.0-0.2); BASO % 2 % (0-3); EOS # 0.1 x10^3/uL (0.0-0.7); EOS % 1 % (0-3); HEMATOCRIT 24.4 % (36.0-47.0); HEMOGLOBIN 7.9 g/dL (12.0-15.5); LYMPH # 2.2 x10^3/uL (1.0-4.8); LYMPH % 32 % (24-48); MEAN CORPUSCULAR HEMOGLOBIN 28 pg (25-35); MEAN CORPUSCULAR HGB CONC 33 g/dL (31-37); MEAN CORPUSCULAR VOLUME 86 fL (79-100); MONO # 0.7 x10^3/uL (0.0-1.1); MONO % 10 % (0-9); NEUT # 3.8 x10^3uL (1.8-7.7); NEUT % 56 % (31-73); PLATELET COUNT 90 x10^3/uL (140-400); RED BLOOD COUNT 2.83 x10^6/uL (3.50-5.40); RED CELL DISTRIBUTION WIDTH 16.2 % (11.5-14.5); WHITE BLOOD COUNT 6.8 x10^3/uL (4.0-11.0)
[2018-08-30] MEDS: ALBUTEROL SULFATE 2.5 MG/3 ML NEBU. NEB SCH ×4 (05:20→20:29)
[2018-08-30 06:13] VITALS: BP 172/105
[2018-08-30] MEDS ORDERED: cloNIDine HCL 0.1 MG TABLET PO PRN (06:15)
[2018-08-30 06:20] LABS: ALBUMIN/GLOBULIN RATIO 0.9 (1.0-1.7); CALCIUM 8.8 mg/dL (8.5-10.1); CREATININE 0.8 mg/dL (0.6-1.0); GFR 89.1; TOTAL BILIRUBIN 0.3 mg/dL (0.2-1.0); TOTAL PROTEIN 6.5 g/dL (6.4-8.2)
[2018-08-30 06:33] LABS: POTASSIUM 2.7 mmol/L (3.5-5.1)
[2018-08-30] MEDS: POTASSIUM CHLORIDE 20 MEQ/15 ML ORAL LIQUID. FT SCH ×2 (06:40→11:37)
[2018-08-30] MEDS: PARoxetine 10 MG TABLET PO SCH (09:22)
[2018-08-30] MEDS: CHOLECALCIFEROL (VITAMIN D3) 1,000 UNIT TABLET PO SCH (09:22)
[2018-08-30] MEDS: CARVEDILOL 12.5 MG TABLET PO SCH ×2 (09:22→17:20)
[2018-08-30] MEDS: MELOXICAM 7.5 MG TABLET PO SCH (09:23)
[2018-08-30] MEDS: MEGESTROL 400 MG/10 ML ORAL.SUSP. PO SCH ×2 (09:23→11:30)
[2018-08-30] MEDS: buPROPion XL 150 MG TAB.ER.24H PO SCH (09:23)
[2018-08-30 11:00] VITALS: BP 119/73
[2018-08-30] MEDS: MVI, ADULT NO.4 WITH VIT K 10 ML, THIAMINE INJ 100 MG, FOLIC ACID INJ 1 MG in IV NORMAL... IV SCH ×4 (11:36)
[2018-08-30] MEDS: NICOTINE 21MG PATCH. TD SCH (11:36)
[2018-08-30 14:03] LABS: CREATININE 0.8 mg/dL (0.6-1.0); GFR 89.1; POTASSIUM 4.1 mmol/L (3.5-5.1)
[2018-08-30 15:06] VITALS: BP 115/74
--- NOTE | 2018-08-30 18:37 | PDOC ---
Exam Note: Pedro Pablo Note: Please also refer to the separate dictated note~for this date of service dictated separately.~Patient seen individually. Discussed the patient with Nursing staff reviewed the chart.~Reviewed interim history and current functioning. Reviewed vital signs,~Labs/ Radiology~and current medications noted below. Continue current treatment with the changes noted in the dictated addendum note Assessment: Vital Signs: Vital Signs Date Time Temp Pulse Resp B/P (MAP) Pulse Ox O2 Delivery O2 Flow Rate FiO2 08/30/18 17:20 76 115/74 08/30/18 15:06 98.6 14 Room Air 08/30/18 06:13 99 I&O Intake and Output 08/30/18 07:00 Intake Total 3011.51 ml Balance 3011.51 ml Intake Oral 930 ml IV Total 2081.51 ml # Voids 3 # Bowel Movements 1 Labs: Laboratory Tests Test 08/30/18 04:05 08/30/18 05:55 08/30/18 13:40 White Blood Count 6.8 x10^3/uL (4.0-11.0) Red Blood Count 2.83 x10^6/uL (3.50-5.40) L Hemoglobin 7.9 g/dL (12.0-15.5) L Hematocrit 24.4 % (36.0-47.0) L Mean Corpuscular Volume 86 fL (79-100) Mean Corpuscular Hemoglobin 28 pg (25-35) Mean Corpuscular Hemoglobin Concent 33 g/dL (31-37) Red Cell Distribution Width 16.2 % (11.5-14.5) H Platelet Count 90 x10^3/uL (140-400) L Neutrophils (%) (Auto) 56 % (31-73) Lymphocytes (%) (Auto) 32 % (24-48) Monocytes (%) (Auto) 10 % (0-9) H Eosinophils (%) (Auto) 1 % (0-3) Basophils (%) (Auto) 2 % (0-3) Neutrophils # (Auto) 3.8 x10^3uL (1.8-7.7) Lymphocytes # (Auto) 2.2 x10^3/uL (1.0-4.8) Monocytes # (Auto) 0.7 x10^3/uL (0.0-1.1) Eosinophils # (Auto) 0.1 x10^3/uL (0.0-0.7) Basophils # (Auto) 0.1 x10^3/uL (0.0-0.2) Sodium Level 139 mmol/L (136-145) 142 mmol/L (136-145) Potassium Level 2.7 mmol/L (3.5-5.1) *L 4.1 mmol/L (3.5-5.1) # Chloride Level 105 mmol/L (98-107) 111 mmol/L (98-107) H Carbon Dioxide Level 21 mmol/L (21-32) 20 mmol/L (21-32) L Anion Gap 13 (6-14) 11 (6-14) Blood Urea Nitrogen 10 mg/dL (7-20) 9 mg/dL (7-20) Creatinine 0.8 mg/dL (0.6-1.0) 0.8 mg/dL (0.6-1.0) Estimated GFR (Cockcroft-Gault) 89.1 89.1 BUN/Creatinine Ratio 13 (6-20) Glucose Level 105 mg/dL (70-99) H 108 mg/dL (70-99) H Calcium Level 8.8 mg/dL (8.5-10.1) 9.0 mg/dL (8.5-10.1) Total Bilirubin 0.3 mg/dL (0.2-1.0) Aspartate Amino Transferase (AST) 21 U/L (15-37) Alanine Aminotransferase (ALT) 21 U/L (14-59) Alkaline Phosphatase 44 U/L (46-116) L Total Protein 6.5 g/dL (6.4-8.2) Albumin 3.0 g/dL (3.4-5.0) L Albumin/Globulin Ratio 0.9 (1.0-1.7) L Lipase 466 U/L (73-393) H Current Medications: Meds: Current Medications Sodium Chloride 1,000 ml @ 1,000 mls/hr Q1H IV Last administered on 08/28/18at 15:29; Start 08/28/18 at 15:19; Stop 08/28/18 at 16:18; Status DC Famotidine (Pepcid Vial) 20 mg 1X ONCE IVP Last administered on 08/28/18at 17: 11; Start 08/28/18 at 16:30; Stop 08/28/18 at 16:32; Status DC Magnesium Oxide (Magnesium Oxide) 400 mg 1X ONCE PO ; Start 08/28/18 at 17:00; Stop 08/28/18 at 17:01; Status DC Potassium Chloride (Klor-Con) 40 meq 1X ONCE PO ; Start 08/28/18 at 17:00; Stop 08/28/18 at 17:01; Status DC Ceftriaxone Sodium 1 gm/ Sodium Chloride 50 ml @ 100 mls/hr 1X ONCE IV Last administered on 08/28/18at 17:11; Start 08/28/18 at 17:00; Stop 08/28/18 at 17:29 ; Status DC Sodium Chloride 1,000 ml @ 100 mls/hr Q10H IV Last administered on 08/29/18at 20:25; Start 08/28/18 at 16:52; Stop 08/29/18 at 16:51; Status DC Sodium Chloride 50 ml @ As Directed STK-MED ONCE .ROUTE ; Start 08/28/18 at 17: 06; Stop 08/28/18 at 17:07; Status DC Ceftriaxone Sodium (Rocephin) 1 gm STK-MED ONCE IV ; Start 08/28/18 at 17:07; Stop 08/28/18 at 17:08; Status DC Multivitamins/ Minerals 10 ml/ Folic Acid 1 mg/ Thiamine HCl 100 mg/Sodium Chloride 1,011.2 ml @ 0 mls/hr 1X ONCE IV Last administered on 08/28/18at 17: 30; Start 08/28/18 at 17:30; Stop 08/28/18 at 17:31; Status DC Multivitamins/ Minerals 10 ml/ Thiamine HCl 100 mg/Folic Acid 1 mg/Sodium Chloride 1,011.2 ml @ 100 mls/ hr DAILY IV Last administered on 08/30/18at 11: 36; Start 08/29/18 at 09:00; Stop 09/03/18 at 08:59 Lorazepam (Ativan) 2 mg PRN Q1HR PRN IV For CIWA 8-14 Last administered on 08/30at 02:15; Start 08/28/18 at 18:00 Lorazepam (Ativan) 4 mg PRN Q1HR PRN IV For CIWA 15 or greater; Start 08/28/18 at 18:00 Magnesium Sulfate 50 ml @ 25 mls/hr 1X ONCE IV Last administered on 08/28/18at 19:44; Start 08/28/18 at 21:00; Stop 08/28/18 at 22:59; Status DC Bupropion HCl (Wellbutrin Xl) 150 mg DAILY PO Last administered on 08/30/18 09 :23; Start 08/29/18 at 09:00 Carvedilol (Coreg) 12.5 mg BIDWMEALS PO Last administered on 08/30/18 17:20; Start 08/29/18 at 08:00 Vitamin D (Vitamin D3) 2,000 unit DAILY PO Last administered on 08/30/18 09:22 ; Start 08/29/18 at 09:00 Meloxicam (Mobic) 7.5 mg DAILY PO Last administered on 08/30/18 09:23; Start 08/29/18 at 09:00 Mirtazapine (Remeron) 45 mg QHS PO Last administered on 08/29/18 22:36; Start 08/29/18 at 21:00 Paroxetine HCl (Paxil) 10 mg DAILY PO Last administered on 08/30/18 09:22; Start 08/29/18 at 09:00 Albuterol Sulfate (Ventolin) 2.5 mg RTQID NEB Last administered on 08/30/18 05 :20; Start 08/29/18 at 08:00 Megestrol Acetate (Megace) 400 mg BIDACBL PO Last administered on 08/30/18 09: 23; Start 08/29/18 at 07:30 Nicotine (Nicoderm Cq 21mg) 1 patch DAILY TD Last administered on 08/30/18at 11: 36; Start 08/29/18 at 07:00 Acetaminophen (Tylenol) 500 mg PRN Q6HRS PRN PO PAIN / TEMP; Start 08/29/18 at 10:15; Stop 08/29/18 at 10:15; Status DC Acetaminophen (Tylenol) 650 mg PRN Q6HRS PRN PO PAIN / TEMP Last administered on 08/30/18at 03:38; Start 08/30/18 at 01:00 Clonidine HCl (Catapres) 0.1 mg PRN Q1HR PRN PO SBP>180 OR DBP>100, MR X 3 Last administered on 08/30/18at 06:32; Start 08/30/18 at 06:15 Potassium Chloride (KCl Oral Soln) 40 meq Q4H FT Last administered on at 11:37; Start 08/30/18 at 06:45; Stop 08/30/18 at 10:46; Status DC Active Scripts Active Reported Megace Es (Megestrol Acetate) 625 Mg/5 Ml Oral.susp 625 Mg PO TIDAC Bupropion Xl (Bupropion Hcl) 150 Mg Tab.er.24h 1 Tab PO DAILY Paroxetine Hcl 10 Mg Tablet 1 Tab PO DAILY Meloxicam 7.5 Mg Tablet 1 Tab PO DAILY Vitamin D-3 (Cholecalciferol (Vitamin D3)) 2,000 Unit Capsule 2,000 Unit PO DAILY LAST DOSE GIVEN: DATE: TODAY TIME: AM NEXT DOSE DUE: DATE: TOMORROW TIME: AM Spiriva (Tiotropium [place]) 18 Mcg Cap.w.dev 18 Mcg IH DAILY LAST DOSE GIVEN: DATE: TODAY TIME: AM NEXT DOSE DUE: DATE: TOMORROW TIME: AM NITROGLYCERIN SubLingual (Nitroglycerin) 0.4 Mg Tab.subl 0.4 Mg SL PRN Q5MIN PRN LAST DOSE GIVEN: NOT GIVEN THIS ADMISSION NEXT DOSE DUE: DATE: TODAY TIME: IF/WHEN NEEDED Mirtazapine 45 Mg Tablet 1 Tab PO QHS LAST DOSE GIVEN: NOT GIVEN THIS ADMISSION NEXT DOSE DUE: DATE: TODAY TIME: AT BEDTIME Vitamin B-12 (Cyanocobalamin (Vitamin B-12)) 1,000 Mcg Tablet 1,000 Mcg PO DAILY LAST DOSE GIVEN: DATE: TODAY TIME: AM NEXT DOSE DUE: DATE: TOMORROW TIME: AM Carvedilol 12.5 Mg Tablet 1 Tab PO BID LAST DOSE GIVEN: DATE: TODAY TIME: AM NEXT DOSE DUE: DATE: TODAY TIME: PM I have reviewed the current psychotropics carefully including drug interactions. Risk benefit ratio favors no change other than as noted in my dictated progress note. Diagnosis: Problems: (1) Major depressive disorder, recurrent episode (2) Alcohol intoxication (3) Depression KALANI LAYNE MD Aug 30, 2018 18:37
[2018-08-30 19:24] VITALS: BP 107/60
[2018-08-30] MEDS: MIRTAZAPINE 30 MG TABLET PO SCH (20:14)
--- NOTE | 2018-08-30 20:17 | PDOC ---
Progress Note. Subjective: Patient RN reports that the patient hasn't been eating or drinking anything and that she's been primarily sleeping. No withdrawal symptoms have been noted, patient has history of unstable gait and her RN confirms that the patient has been unsteady today but does well using her walker. I find the patient to sleep in bed. When awakened she complains of some epigastric abdominal discomfort as well as some nausea no vomiting, states symptoms are consistent with prior pancreatitis. Denies any bowel or bladder symptoms, denies history of alcohol withdrawal, denies anxiety or tremor. With hydration her hemoglobin has dropped from 8.3-7.9, had a critical low potassium 2.7 this morning rebounded to 4.1 with supplementation. Lipase remains elevated at 466. Objective: Vital Signs: Vital Signs Date Time Temp Pulse Resp B/P (MAP) Pulse Ox O2 Delivery O2 Flow Rate FiO2 08/30/18 19:24 98.4 70 20 107/60 (76) 99 08/30/18 15:06 Room Air I & O: Intake and Output 08/30/18 07:00 Intake Total 3011.51 ml Balance 3011.51 ml Intake Oral 930 ml IV Total 2081.51 ml # Voids 3 # Bowel Movements 1 Labs: Laboratory Tests Test 08/29/18 06:01 08/30/18 04:05 08/30/18 05:55 08/30/18 13:40 White Blood Count 7.0 x10^3/uL (4.0-11.0) 6.8 x10^3/uL (4.0-11.0) Red Blood Count 2.97 x10^6/uL (3.50-5.40) 2.83 x10^6/uL (3.50-5.40) Hemoglobin 8.3 g/dL (12.0-15.5) 7.9 g/dL (12.0-15.5) Hematocrit 26.1 % (36.0-47.0) 24.4 % (36.0-47.0) Mean Corpuscular Volume 88 fL (79-100) 86 fL (79-100) Mean Corpuscular Hemoglobin 28 pg (25-35) 28 pg (25-35) Mean Corpuscular Hemoglobin Concent 32 g/dL (31-37) 33 g/dL (31-37) Red Cell Distribution Width 15.7 % (11.5-14.5) 16.2 % (11.5-14.5) Platelet Count 82 x10^3/uL (140-400) 90 x10^3/uL (140-400) Neutrophils (%) (Auto) 60 % (31-73) 56 % (31-73) Lymphocytes (%) (Auto) 28 % (24-48) 32 % (24-48) Monocytes (%) (Auto) 11 % (0-9) 10 % (0-9) Eosinophils (%) (Auto) 1 % (0-3) 1 % (0-3) Basophils (%) (Auto) 1 % (0-3) 2 % (0-3) Neutrophils # (Auto) 4.2 x10^3uL (1.8-7.7) 3.8 x10^3uL (1.8-7.7) Lymphocytes # (Auto) 1.9 x10^3/uL (1.0-4.8) 2.2 x10^3/uL (1.0-4.8) Monocytes # (Auto) 0.8 x10^3/uL (0.0-1.1) 0.7 x10^3/uL (0.0-1.1) Eosinophils # (Auto) 0.1 x10^3/uL (0.0-0.7) 0.1 x10^3/uL (0.0-0.7) Basophils # (Auto) 0.0 x10^3/uL (0.0-0.2) 0.1 x10^3/uL (0.0-0.2) Sodium Level 136 mmol/L (136-145) 139 mmol/L (136-145) 142 mmol/L (136-145) Potassium Level 3.4 mmol/L (3.5-5.1) 2.7 mmol/L (3.5-5.1) 4.1 mmol/L (3.5-5.1) Chloride Level 101 mmol/L (98-107) 105 mmol/L (98-107) 111 mmol/L (98-107) Carbon Dioxide Level 18 mmol/L (21-32) 21 mmol/L (21-32) 20 mmol/L (21-32) Anion Gap 17 (6-14) 13 (6-14) 11 (6-14) Blood Urea Nitrogen 19 mg/dL (7-20) 10 mg/dL (7-20) 9 mg/dL (7-20) Creatinine 1.1 mg/dL (0.6-1.0) 0.8 mg/dL (0.6-1.0) 0.8 mg/dL (0.6-1.0) Estimated GFR (Cockcroft-Gault) 61.7 89.1 89.1 BUN/Creatinine Ratio 17 (6-20) 13 (6-20) Glucose Level 93 mg/dL (70-99) 105 mg/dL (70-99) 108 mg/dL (70-99) Calcium Level 8.4 mg/dL (8.5-10.1) 8.8 mg/dL (8.5-10.1) 9.0 mg/dL (8.5-10.1) Magnesium Level 2.1 mg/dL (1.8-2.4) Total Bilirubin 0.6 mg/dL (0.2-1.0) 0.3 mg/dL (0.2-1.0) Aspartate Amino Transf (AST/SGOT) 30 U/L (15-37) 21 U/L (15-37) Alanine Aminotransferase (ALT/SGPT) 25 U/L (14-59) 21 U/L (14-59) Alkaline Phosphatase 52 U/L (46-116) 44 U/L (46-116) Total Protein 7.6 g/dL (6.4-8.2) 6.5 g/dL (6.4-8.2) Albumin 3.6 g/dL (3.4-5.0) 3.0 g/dL (3.4-5.0) Albumin/Globulin Ratio 0.9 (1.0-1.7) 0.9 (1.0-1.7) Lipase 734 U/L (73-393) 466 U/L (73-393) Physical Exam: Gen.: Sleepy and lethargic, no apparent distress HEENT: Normocephalic atraumatic, PERRLA EOMI, scleral icterus, oral mucosa pink and moist Neck: Supple, no lymphadenopathy, nontender Cardiovascular: Normal S1 and S2 no murmurs Pulmonary: Lungs are clear bilaterally with good air movement no respiratory distress Abdomen: Soft less distended today, still with some mild epigastric tenderness improved from yesterday, bowel sounds normal masses Extremities: No clubbing, cyanosis or edema Neuro: Alert and oriented 3, cranial nerves II through XII grossly intact, no lateralizing neuro deficits Skin: Warm, dry Assessment: Alcohol intoxication: No longer intoxicated no withdrawal symptoms Metabolic acidosis: Lactic acid improved to 1.2 with hydration Pancreatitis: Still symptomatic lipase 466 Acute kidney injury: Resolved with hydration BUN is 10 creatinine 0.8 Normocytic anemia: Hemoglobin 7.9 down from 8.3, continue to follow Thrombocytopenia: Platelets increased to 90,000 Hypokalemia: Potassium 4.1 up from 2.7 this morning after by mouth supplement Hypomagnesemia: Improved to 2.1 Mild malnutrition: Albumin 3.0 Continue hydration and bowel rest. No withdrawal symptoms to date we'll continue to follow. CHRISTOPHER MARTI DO Aug 30, 2018 20:16
[2018-08-30 23:06] VITALS: BP 152/84
[2018-08-31] MEDS: ALBUTEROL SULFATE 2.5 MG/3 ML NEBU. NEB SCH (05:28)
[2018-08-31 05:47] VITALS: BP 156/91
[2018-08-31 06:05] LABS: BASO % 1 % (0-3); EOS % 1 % (0-3); HEMATOCRIT 24.5 % (36.0-47.0); HEMOGLOBIN 7.9 g/dL (12.0-15.5); LYMPH % 38 % (24-48); MEAN CORPUSCULAR HEMOGLOBIN 28 pg (25-35); MEAN CORPUSCULAR HGB CONC 32 g/dL (31-37); MEAN CORPUSCULAR VOLUME 87 fL (79-100); MONO # 0.8 x10^3/uL (0.0-1.1); MONO % 15 % (0-9); NEUT # 2.5 x10^3uL (1.8-7.7); NEUT % 46 % (31-73); PLATELET COUNT 85 x10^3/uL (140-400); RED CELL DISTRIBUTION WIDTH 16.5 % (11.5-14.5); WHITE BLOOD COUNT 5.4 x10^3/uL (4.0-11.0)
[2018-08-31 06:24] LABS: ALBUMIN/GLOBULIN RATIO 0.8 (1.0-1.7); CREATININE 0.9 mg/dL (0.6-1.0); GFR 77.8; POTASSIUM 3.5 mmol/L (3.5-5.1); TOTAL BILIRUBIN 0.2 mg/dL (0.2-1.0); TOTAL PROTEIN 6.6 g/dL (6.4-8.2)
[2018-08-31] MEDS: MEGESTROL 400 MG/10 ML ORAL.SUSP. PO SCH ×2 (08:40→11:30)
[2018-08-31] MEDS: CHOLECALCIFEROL (VITAMIN D3) 1,000 UNIT TABLET PO SCH (08:41)
[2018-08-31] MEDS: NICOTINE 21MG PATCH. TD SCH (08:41)
[2018-08-31] MEDS: PARoxetine 10 MG TABLET PO SCH (08:41)
[2018-08-31] MEDS: MELOXICAM 7.5 MG TABLET PO SCH (08:41)
[2018-08-31] MEDS: buPROPion XL 150 MG TAB.ER.24H PO SCH (08:41)
[2018-08-31] MEDS: CARVEDILOL 12.5 MG TABLET PO SCH (08:41)
[2018-08-31] MEDS: MVI, ADULT NO.4 WITH VIT K 10 ML, THIAMINE INJ 100 MG, FOLIC ACID INJ 1 MG in IV NORMAL... IV SCH ×4 (09:32)
[2018-08-31 10:46] VITALS: BP 116/72
[2018-08-31] MEDS ORDERED: HYDR-971 PO (13:49)
--- NOTE | 2018-08-31 13:50 | PDOC3 ---
Discharge Summary Visit Information: Date of Admission: Aug 28, 2018 Date of Discharge: Aug 31, 2018 Admitting Diagnosis: alcohol intoxication, acute pancreatitis, metabolic acid Final Diagnosis Problems Medical Problems: (1) Alcohol abuse Status: Acute (2) Anemia Status: Acute (3) Elevated lactic acid level Status: Acute (4) Generalized weakness Status: Acute (5) Hypokalemia Status: Acute (6) Hypomagnesemia Status: Acute (7) Pancreatitis Status: Acute (8) Renal insufficiency Status: Acute (9) Thrombocytopenia Status: Acute (10) Tobacco abuse Status: Acute (11) Tobacco abuse counseling Status: Acute Brief Hospital Course: Allergies: Allergies Coded Allergies Type Severity Reaction Last Updated Verified erythromycin base Allergy Intermediate DIARRHEA 08/28/18 Yes Penicillins Allergy Mild Anaphylaxis 08/28/18 Yes Vital Signs: Vital Signs Date Time Temp Pulse Resp B/P (MAP) Pulse Ox O2 Delivery O2 Flow Rate FiO2 08/31/18 10:46 98.5 80 20 116/72 (87) 100 Room Air Lab Results: Laboratory Tests Test 08/30/18 04:05 08/30/18 05:55 08/30/18 13:40 08/31/18 05:55 White Blood Count 6.8 x10^3/uL (4.0-11.0) 5.4 x10^3/uL (4.0-11.0) Red Blood Count 2.83 x10^6/uL (3.50-5.40) 2.80 x10^6/uL (3.50-5.40) Hemoglobin 7.9 g/dL (12.0-15.5) 7.9 g/dL (12.0-15.5) Hematocrit 24.4 % (36.0-47.0) 24.5 % (36.0-47.0) Mean Corpuscular Volume 86 fL (79-100) 87 fL (79-100) Mean Corpuscular Hemoglobin 28 pg (25-35) 28 pg (25-35) Mean Corpuscular Hemoglobin Concent 33 g/dL (31-37) 32 g/dL (31-37) Red Cell Distribution Width 16.2 % (11.5-14.5) 16.5 % (11.5-14.5) Platelet Count 90 x10^3/uL (140-400) 85 x10^3/uL (140-400) Neutrophils (%) (Auto) 56 % (31-73) 46 % (31-73) Lymphocytes (%) (Auto) 32 % (24-48) 38 % (24-48) Monocytes (%) (Auto) 10 % (0-9) 15 % (0-9) Eosinophils (%) (Auto) 1 % (0-3) 1 % (0-3) Basophils (%) (Auto) 2 % (0-3) 1 % (0-3) Neutrophils # (Auto) 3.8 x10^3uL (1.8-7.7) 2.5 x10^3uL (1.8-7.7) Lymphocytes # (Auto) 2.2 x10^3/uL (1.0-4.8) 2.0 x10^3/uL (1.0-4.8) Monocytes # (Auto) 0.7 x10^3/uL (0.0-1.1) 0.8 x10^3/uL (0.0-1.1) Eosinophils # (Auto) 0.1 x10^3/uL (0.0-0.7) 0.0 x10^3/uL (0.0-0.7) Basophils # (Auto) 0.1 x10^3/uL (0.0-0.2) 0.0 x10^3/uL (0.0-0.2) Sodium Level 139 mmol/L (136-145) 142 mmol/L (136-145) 144 mmol/L (136-145) Potassium Level 2.7 mmol/L (3.5-5.1) 4.1 mmol/L (3.5-5.1) 3.5 mmol/L (3.5-5.1) Chloride Level 105 mmol/L (98-107) 111 mmol/L (98-107) 111 mmol/L (98-107) Carbon Dioxide Level 21 mmol/L (21-32) 20 mmol/L (21-32) 20 mmol/L (21-32) Anion Gap 13 (6-14) 11 (6-14) 13 (6-14) Blood Urea Nitrogen 10 mg/dL (7-20) 9 mg/dL (7-20) 6 mg/dL (7-20) Creatinine 0.8 mg/dL (0.6-1.0) 0.8 mg/dL (0.6-1.0) 0.9 mg/dL (0.6-1.0) Estimated GFR (Cockcroft-Gault) 89.1 89.1 77.8 BUN/Creatinine Ratio 13 (6-20) 7 (6-20) Glucose Level 105 mg/dL (70-99) 108 mg/dL (70-99) 95 mg/dL (70-99) Calcium Level 8.8 mg/dL (8.5-10.1) 9.0 mg/dL (8.5-10.1) 9.0 mg/dL (8.5-10.1) Total Bilirubin 0.3 mg/dL (0.2-1.0) 0.2 mg/dL (0.2-1.0) Aspartate Amino Transf (AST/SGOT) 21 U/L (15-37) 24 U/L (15-37) Alanine Aminotransferase (ALT/SGPT) 21 U/L (14-59) 21 U/L (14-59) Alkaline Phosphatase 44 U/L (46-116) 42 U/L (46-116) Total Protein 6.5 g/dL (6.4-8.2) 6.6 g/dL (6.4-8.2) Albumin 3.0 g/dL (3.4-5.0) 3.0 g/dL (3.4-5.0) Albumin/Globulin Ratio 0.9 (1.0-1.7) 0.8 (1.0-1.7) Lipase 466 U/L (73-393) 272 U/L (73-393) PE: Gen.: Alert, pleasant, sitting up in bed eating her lunch with company at bedside, no apparent distress HEENT: Normocephalic atraumatic, PERRLA EOMI, scleral icterus, oral mucosa pink and moist Neck: Supple, no lymphadenopathy, nontender Cardiovascular: Normal S1 and S2 no murmurs Pulmonary: Lungs are clear bilaterally with good air movement no respiratory distress Abdomen: Soft nontender non-distended, bowel sounds present no masses Extremities: No clubbing, cyanosis or edema Neuro: Alert and oriented 3, cranial nerves II through XII grossly intact, no lateralizing neuro deficits Skin: Warm, dry Brief Hospital Course: Ms. Lucio is a 57 old female who presented to the emergency department initially complaining of weakness and was found to be intoxicated with a serum alcohol level of 193. She was also having abdominal discomfort with decreased by mouth intake caused by pancreatitis (lipase 643). She was dehydrated with acute kidney injury, low potassium and magnesium. She had a chronic anemia and after hydration her hemoglobin has remained stable at 7.9. She was admitted for hydration and bowel rest as well as electrolyte supplementation. Her lipase did increase on the first day of admission to 734 but has now improved to 272. I find the patient sitting up in bed today eating a full lunch with company at the bedside. She denies any current complaints, she has no tremor and does not feel anxious. She is very much wanting to go home today and is also very concerned that she will have pain medications. I discussed her discharge plan with her at length including close PCP follow-up. I advised her to also consider asking for physical therapy referral to help her with her gait which has been abnormal since a fracture a few years ago. She is advised to discontinue substance abuse and to seek medical treatment if necessary. She vocalized understanding of the need to follow closely with her doctor to recheck labs and of course her symptoms. Discharge Information: Condition at Discharge: Improved Follow Up: Weeks Disposition/Orders: D/C to Home Home Meds: Active Scripts Hydrocodone Bit/Acetaminophen (NORCO 5-325 TABLET) 1 Each Tablet, 1 TAB PO PRN Q6HRS PRN for PAIN, #20 TAB 0 Refills Prov:CHRISTOPHER MARTI DO 08/31/18 Reported Medications Megestrol Acetate (MEGACE ES) 625 Mg/5 Ml Oral.susp, 625 MG PO TIDAC, LIQUID 08/29/18 Bupropion Hcl (BUPROPION XL) 150 Mg Tab.er.24h, 1 TAB PO DAILY 08/29/18 Paroxetine Hcl (PAROXETINE HCL) 10 Mg Tablet, 1 TAB PO DAILY 08/29/18 Meloxicam (MELOXICAM) 7.5 Mg Tablet, 1 TAB PO DAILY 08/29/18 Cholecalciferol (Vitamin D3) (VITAMIN D-3) 2,000 Unit Capsule, 2000 UNIT PO DAILY LAST DOSE GIVEN: DATE: TODAY TIME: AM NEXT DOSE DUE: DATE: TOMORROW TIME: AM 03/17/18 Tiotropium [place] (SPIRIVA) 18 Mcg Cap.w.dev, 18 MCG IH DAILY LAST DOSE GIVEN: DATE: TODAY TIME: AM NEXT DOSE DUE: DATE: TOMORROW TIME: AM 03/17/18 Nitroglycerin (NITROGLYCERIN SubLingual) 0.4 Mg Tab.subl, 0.4 MG SL PRN Q5MIN PRN for CHEST PAIN LAST DOSE GIVEN: NOT GIVEN THIS ADMISSION NEXT DOSE DUE: DATE: TODAY TIME: IF/WHEN NEEDED 03/17/18 Mirtazapine (MIRTAZAPINE) 45 Mg Tablet, 1 TAB PO QHS LAST DOSE GIVEN: NOT GIVEN THIS ADMISSION NEXT DOSE DUE: DATE: TODAY TIME: AT BEDTIME 03/17/18 Cyanocobalamin (Vitamin B-12) (VITAMIN B-12) 1,000 Mcg Tablet, 1000 MCG PO DAILY LAST DOSE GIVEN: DATE: TODAY TIME: AM NEXT DOSE DUE: DATE: TOMORROW TIME: AM 03/17/18 Carvedilol (CARVEDILOL) 12.5 Mg Tablet, 1 TAB PO BID LAST DOSE GIVEN: DATE: TODAY TIME: AM NEXT DOSE DUE: DATE: TODAY TIME: PM 03/17/18 CHRISTOPHER MARTI DO Aug 31, 2018 13:50
--- NOTE | 2018-08-31 20:05 | CONS ---
DATE OF CONSULTATION: 08/30/2018 PSYCHIATRIC CONSULTATION This late entry 08/30/2018 covers elements not covered in my initial note 08/30/2018. I met with the patient on the evening of 08/30/2018. IDENTIFYING DATA: The patient is a 57-year-old -[place] female seen in bed 124, [facility] for psychiatric consultation requested by Dr. Venegas to assess the patient's depression within the context of her alcohol abuse, which is what prompted this admission for alcohol detoxification. The patient was seen individually, discussed with nursing staff, reviewed the chart. CHIEF COMPLAINT: "Yes, I have been depressed. 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 I normally drink clear alcohol vodka, but I had some bourbon that was the problem." HISTORY OF PRESENT ILLNESS: The patient states she lives with her brother, works at the [employer], and states she has felt more isolative, depressed, hopeless, helpless, and worthless. She denies any psychotic symptoms, suicidal or homicidal ideation. She states her brother works the machinist 2nd shift for [employer] and they hardly get to see each other, which has been worsening her depressive symptoms. No clear history of bipolar disorder. She has been using increasing amounts of alcohol, but tends to minimize this. This hospitalization was prompted for alcohol withdrawal. No symptoms of bipolar disorder. PAST PSYCHIATRIC HISTORY: As above. PAST MEDICAL HISTORY: The patient's records were reviewed and include alcohol withdrawal syndrome, detox almost completed. DRUG ALLERGIES: PENICILLIN, ERYTHROMYCIN. CURRENT PSYCHOTROPICS: Paxil 10 mg a day, Remeron 45 mg at bedtime, Wellbutrin-XL 150 mg a day. CODE STATUS: She is a full code. FAMILY HISTORY: Noncontributory. SOCIAL HISTORY: As noted above. MENTAL STATUS EXAMINATION: The patient was seen individually in her room. Eye contact is good. Psychomotor activity normal. Speech coherent. Thought processes, goal directed. Mood is depressed, anxious. Affect is mood congruent. Intellect average. Insight good. Judgment intact. She was quite verbal forthcoming. No active suicidal or homicidal ideation. LABORATORY DATA: Reviewed. IMPRESSION: Alcohol abuse. Major depressive disorder, recurrent. Alcohol withdrawal syndrome. Hypovitaminosis D. PLAN: From a psychiatric standpoint, would suggest changing the Paxil and Wellbutrin to Cymbalta 30 mg a day, increasing to 60 mg a day and later augmentation with Abilify if needed. The patient would benefit from starting psychotherapy as an outpatient. She has been to [facility] or attempted to get an appointment, but was never able to, and I have encouraged her to persevere with this. Dr. Venegas/Dr. Enriquez, thank you for the opportunity to participate in your patient's care. We will follow with you. KALANI LAYNE MD DR: ERICKSON/roxy JOB#: [id number] / [id number]
[2018-09-01] MEDS ORDERED: DULoxetine HCL 30 MG CAPSULE.DR PO SCH (09:00)
== END 2018-08-31 14:30 | disposition home or self-care (01) | DRG 682 ==
LOC: ER 15:11 → 1 SOUTH 17:04
PROVIDERS: ADMIT Internal Medicine; ATTEND Internal Medicine
DX: N17.9 Acute kidney failure, unspecified (principal); K85.90 Acute pancreatitis without necrosis or infection, unspecified; E44.1 Mild protein-calorie malnutrition; E87.2 Acidosis; F10.239 Alcohol dependence with withdrawal, unspecified; F33.9 Major depressive disorder, recurrent, unspecified; Z68.1 Body mass index [BMI] 19.9 or less, adult; D64.9 Anemia, unspecified; D69.6 Thrombocytopenia, unspecified; E83.42 Hypomagnesemia; E86.0 Dehydration; E87.6 Hypokalemia; F10.229 Alcohol dependence with intoxication, unspecified; F17.210 Nicotine dependence, cigarettes, uncomplicated; F12.10 Cannabis abuse, uncomplicated; I73.9 Peripheral vascular disease, unspecified; J44.9 Chronic obstructive pulmonary disease, unspecified; Y90.6 Blood alcohol level of 120-199 mg/100 ml; Z86.718 Personal history of other venous thrombosis and embolism; Z88.0 Allergy status to penicillin; Z79.899 Other long term (current) drug therapy; Z71.6 Tobacco abuse counseling; Z88.1 Allergy status to other antibiotic agents
CPT/HCPCS: 36415; 70450; 71045; 80048; 80053; 80307; 81001; 82140; 82550; 83605; 83690; 83735; 83880; 84484; 85025; 85610; 85730; 87040; 93005; 94640; 96361; 96365; 96375; G0480; J0696; J2060; J3475; J7613; S0028; 97116; 97530; 99285-25; G0479; J7030

== ENCOUNTER 2019-02-22 10:09 | Inpatient (IN) | payer BC ==
[~2019-02-22] VITALS: Ht 157.5 cm; Wt 41.3 kg
[~2019-02-22 10:09] MED LIST changes: +BUPR-192 PO; -CARV12.52 PO; +CARV12.547 PO; +HYDR-3165 PO; +MEGE625O PO; +MELO7.5T29 PO; +PARO10TA3 PO
[2019-02-22 10:28] LABS: BASO # 0.1 x10^3/uL (0.0-0.2); BASO % 1 % (0-3); EOS # 0.1 x10^3/uL (0.0-0.7); EOS % 1 % (0-3); HEMATOCRIT 32.5 % (36.0-47.0); HEMOGLOBIN 10.2 g/dL (12.0-15.5); LYMPH # 3.2 x10^3/uL (1.0-4.8); LYMPH % 31 % (24-48); MEAN CORPUSCULAR HEMOGLOBIN 27 pg (25-35); MEAN CORPUSCULAR HGB CONC 31 g/dL (31-37); MEAN CORPUSCULAR VOLUME 86 fL (79-100); MONO # 0.6 x10^3/uL (0.0-1.1); MONO % 6 % (0-9); NEUT # 6.3 x10^3uL (1.8-7.7); NEUT % 61 % (31-73); PLATELET COUNT 140 x10^3/uL (140-400); RED BLOOD COUNT 3.77 x10^6/uL (3.50-5.40); RED CELL DISTRIBUTION WIDTH 14.5 % (11.5-14.5); WHITE BLOOD COUNT 10.2 x10^3/uL (4.0-11.0)
--- NOTE | 2019-02-22 10:32 | RAD ---
EXAM: Head CT without contrast. HISTORY: Hypertension. Altered mental status. TECHNIQUE: Computed tomographic images of the head were obtained without contrast. *One or more of the following individualized dose reduction techniques were utilized for this examination: 1. Automated exposure control. 2. Adjustment of the mA and/or kV according to patient size. 3. Use of iterative reconstruction technique. COMPARISON: 08/28/2018. FINDINGS: There is no acute or subacute extra-axial or intraparenchymal hemorrhage. There is no mass effect or midline shift. There is no hydrocephalus. There are areas of decreased attenuation within the cerebral white matter, nonspecific and likely related to chronic small vessel disease. There is cerebral and cerebellar volume loss. The visualized portions of the orbits, paranasal sinuses and mastoid air cells are unremarkable. No suspicious calvarial lesion is seen. IMPRESSION: 1. No acute intracranial finding. 2. Decreased attenuation within the cerebral white matter, likely due to chronic small vessel disease. 3. Cerebral and cerebellar volume loss. This is greater than expected for patient age. Electronically signed by: Tracey Ovalles MD (02/22/2019 10:29 AM) [facility]
--- NOTE | 2019-02-22 10:36 | RAD ---
EXAM: Bilateral shoulders, 3 views. HISTORY: Pain. COMPARISON: None. FINDINGS: 3 views of both shoulders are obtained. There is right glenohumeral joint space narrowing with degenerative subchondral sclerosis, subchondral cyst formation and inferior marginal spurring. There is decreased bilateral subacromial space, a component of which is likely projectional. IMPRESSION: 1. Moderate to severe right glenohumeral osteoarthritis. 2. Slight decreased bilateral subacromial space. This may be projectional or due to chronic rotator cuff pathology. Electronically signed by: Tracey Ovalles MD (02/22/2019 10:33 AM) [facility]
[2019-02-22 10:41] LABS: ALBUMIN 3.8 g/dL (3.4-5.0); ALBUMIN/GLOBULIN RATIO 0.8 (1.0-1.7); CALCIUM 9.3 mg/dL (8.5-10.1); CREATININE 1.2 mg/dL (0.6-1.0); GFR 55.6; POTASSIUM 3.5 mmol/L (3.5-5.1); TOTAL BILIRUBIN 0.2 mg/dL (0.2-1.0); TOTAL PROTEIN 8.6 g/dL (6.4-8.2)
[2019-02-22] MEDS ORDERED: cloNIDine HCL 0.1 MG TABLET PO ONE (10:50)
--- NOTE | 2019-02-22 10:55 | PHYS DOC ---
Past History Past Medical History: Alcoholism, COPD, Depression, DVT, Other Past Surgical History: No Surgical History Alcohol Use: Heavy Drug Use: None Adult General Chief Complaint Chief Complaint: HYPERTENSION HPI HPI 58-year-old female presents via EMS with fall and altered mental status. The patient went to the restroom this morning and was supposed to ask for help from her daughter. She did do that. Her daughter heard a thump on the floor and found that the patient fell in the bedroom on her way back from the bathroom. She was not fully responsive and the daughter called 911. When the paramedics arrived they found her blood pressure be very high and the patient was slightly altered, but her mental status was improving. They then brought her to the ED for her high blood pressure. The patient is an alcoholic and drinks daily. She has been diagnosed with kidney problems, liver problems, COPD, and hypertension. She has not been on any hypertension medicines since about November. She was getting hypotensive so they discontinued her meds but they were never restarted or adjusted. She denies fever or chills. She is complaining of bilateral shoulder pain. Her daughter states that she has been complaining about this pain for several days. No known previous injury. Review of Systems Review of Systems Constitutional: Denies fever or chills [] Eyes: Denies change in visual acuity, redness, or eye pain [] HENT: Denies nasal congestion or sore throat [] Respiratory: Denies cough or shortness of breath [] Cardiovascular: No additional information not addressed in HPI [] GI: Denies abdominal pain, nausea, vomiting, bloody stools or diarrhea [] : Denies dysuria or hematuria [] Musculoskeletal: Bilateral shoulder pain, worse on the left[] Integument: Denies rash or skin lesions [] Neurologic: Denies headache, focal weakness or sensory changes [] Endocrine: Denies polyuria or polydipsia [] All other systems were reviewed and found to be within normal limits, except as documented in this note. Current Medications Current Medications Current Medications Medications (Trade) Dose Ordered Sig/Suzanne Start Time Stop Time Status Last Admin Dose Admin Clonidine HCl (Catapres) 0.2 mg 1X ONCE 02/22/19 10:50 02/22/19 10:51 Allergies Allergies Allergies Coded Allergies Type Severity Reaction Last Updated Verified erythromycin base Allergy Intermediate DIARRHEA 08/28/18 Yes Penicillins Allergy Mild Anaphylaxis 08/28/18 Yes Physical Exam Physical Exam Constitutional: Well developed, well nourished, no acute distress, non-toxic appearance. [] HENT: Normocephalic, atraumatic, bilateral external ears normal, oropharynx moist, no oral exudates, nose normal. [] Eyes: PERRLA, EOMI, conjunctiva normal, no discharge. [] Neck: Normal range of motion, no tenderness, supple, no stridor. [] Cardiovascular:Heart rate regular rhythm, no murmur [] Lungs & Thorax: Bilateral expiratory wheeze at the bases.[] Abdomen: Bowel sounds normal, soft, no tenderness, no masses, no pulsatile masses. [] Skin: Warm, dry, no erythema, no rash. [] Back: No tenderness, no CVA tenderness. [] Extremities: Tenderness of the lateral bilateral shoulders, worse on the left. No obvious deformity.[] Neurologic: Alert and oriented X 3, normal motor function, normal sensory function, no focal deficits noted. [] Psychologic: Affect normal, judgement normal, mood normal. [] Current Patient Data Lab Results Laboratory Tests Test 02/22/19 10:18 White Blood Count 10.2 x10^3/uL (4.0-11.0) Red Blood Count 3.77 x10^6/uL (3.50-5.40) Hemoglobin 10.2 g/dL (12.0-15.5) L Hematocrit 32.5 % (36.0-47.0) L Mean Corpuscular Volume 86 fL (79-100) Mean Corpuscular Hemoglobin 27 pg (25-35) Mean Corpuscular Hemoglobin Concent 31 g/dL (31-37) Red Cell Distribution Width 14.5 % (11.5-14.5) Platelet Count 140 x10^3/uL (140-400) Neutrophils (%) (Auto) 61 % (31-73) Lymphocytes (%) (Auto) 31 % (24-48) Monocytes (%) (Auto) 6 % (0-9) Eosinophils (%) (Auto) 1 % (0-3) Basophils (%) (Auto) 1 % (0-3) Neutrophils # (Auto) 6.3 x10^3uL (1.8-7.7) Lymphocytes # (Auto) 3.2 x10^3/uL (1.0-4.8) Monocytes # (Auto) 0.6 x10^3/uL (0.0-1.1) Eosinophils # (Auto) 0.1 x10^3/uL (0.0-0.7) Basophils # (Auto) 0.1 x10^3/uL (0.0-0.2) EKG EKG Sinus rhythm, rate 95, normal axis, no ST elevations or depressions. Possible Q waves V1 through V3[] Radiology/Procedures Radiology/Procedures [] Impressions: EXAM: Head CT without contrast. HISTORY: Hypertension. Altered mental status. TECHNIQUE: Computed tomographic images of the head were obtained without contrast. *One or more of the following individualized dose reduction techniques were utilized for this examination: 1. Automated exposure control. 2. Adjustment of the mA and/or kV according to patient size. 3. Use of iterative reconstruction technique. COMPARISON: 08/28/2018. FINDINGS: There is no acute or subacute extra-axial or intraparenchymal hemorrhage. There is no mass effect or midline shift. There is no hydrocephalus. There are areas of decreased attenuation within the cerebral white matter, nonspecific and likely related to chronic small vessel disease. There is cerebral and cerebellar volume loss. The visualized portions of the orbits, paranasal sinuses and mastoid air cells are unremarkable. No suspicious calvarial lesion is seen. IMPRESSION: 1. No acute intracranial finding. 2. Decreased attenuation within the cerebral white matter, likely due to chronic small vessel disease. 3. Cerebral and cerebellar volume loss. This is greater than expected for patient age. Electronically signed by: Tracey Ochoa MD (02/22/2019 10:29 AM) [place] [id number] DICTATED AND SIGNED BY: TRACEY OCHOA MD DATE: 02/22/19 1029 CC: HOWARD MCKEON DO; BHUMIKA HUA MD Course & Med Decision Making Course & Med Decision Making Pertinent Labs and Imaging studies reviewed. (See chart for details) Patient's EKG has possible Q waves in V1 through V3, but no acute findings. Patient's blood pressure is quite high 200/120. I will give her 0.2 mg of clonidine. The patient was previously on carvedilol and that is reported to be her only hypertension medicine. We have given the patient 0.2 clonidine and 5 mg of metoprolol IV. Her blood pressure has improved 163/96. Her labs are significant for an elevated anion gap, a low carbon dioxide, and elevated troponin of 0.085. I have discussed the patient with Dr. Enriquez and he has agreed to admit the patient for further management. The patient has a drinking history. Her last alcohol was one half days ago. I will give her 25 mg of Librium prior to admission. [] Dragon Disclaimer Dragon Disclaimer This electronic medical record was generated, in whole or in part, using a voice recognition dictation system. Departure Departure: Impression: Primary Impression: Elevated troponin Additional Impressions: Hypertension Alcoholism Increased anion gap metabolic acidosis Disposition: ADMITTED INPATIENT Condition: STABLE Referrals: BHUMIKA HUA MD (PCP) Problem Qualifiers Additional Impressions: Hypertension Hypertension type: essential hypertension Qualified Codes: I10 - Essential ( primary) hypertension HOWARD MCKEON DO Feb 22, 2019 10:55
[2019-02-22] MEDS ORDERED: IPRATRPIUM/ALBUTEROL 0.5/2.5MG 3 ML NEBU. NEB ONE (11:30)
[2019-02-22] MEDS ORDERED: METOPROLOL TARTRATE 5 MG/5 ML VIAL. IV ONE (11:30)
[2019-02-22] MEDS ORDERED: chlordiazePOXIDE HCL 25 MG CAPSULE PO ONE (12:00)
--- NOTE | 2019-02-22 13:04 | EKG ---
[address] [address] Test Date: 2019-02-22 Test Time: 10:37:45 Pat Name: JOYA TERRY Department: Room: 123 A Gender: F Student Development Coordinator: TALAT : 1960 Requested By: HOWARD MCKEON Order Number: [id number] Reading MD: Bebeto Resendiz MD Measurements Intervals [place] Rate: 95 P: 71 ID: [id number] QRS: 6 QRSD: 70 T: 59 QT: 364 QTc: 461 Interpretive Statements SINUS RHYTHM QRS(T) CONTOUR ABNORMALITY CONSISTENT WITH ANTEROSEPTAL INFARCT PROBABLY OLD ABNORMAL ECG Electronically Signed On 02-22-2019 16:58:05 CDT by Bebeto Resendiz MD
[2019-02-22 13:31] VITALS: BP 151/93
--- NOTE | 2019-02-22 15:00 | NUR ---
Cardiology consult called in at [id number].
--- NOTE | 2019-02-22 15:06 | NUR ---
The patient, JOYA TERRY, 58 y/o, F admitted by ADAM REED MD, was given written information regarding hospital policies, unit procedures and contact persons. Patient admitted to room 123 from ED. Arrived on unit at 1220 via EMS accompanied by daughter Satnam. Vital signs assessed, head to toe assessment performed. Daughter stated that she would bring in medication list tammy. Valuables were checked and left with patient at bedside per patient request.
[2019-02-22 15:15] VITALS: BP 136/89
[2019-02-22] MEDS ORDERED: CANN100S PO (17:13)
[2019-02-22] MEDS ORDERED: FOLI0.8T33 PO (17:13)
[2019-02-22] MEDS ORDERED: PANT40TA5 PO (17:14)
[2019-02-22] MEDS ORDERED: SERT50TA PO (17:15)
[2019-02-22] MEDS ORDERED: CARVEDILOL 3.125 MG TABLET PO SCH (17:30)
--- NOTE | 2019-02-22 17:57 | CONS ---
DATE OF CONSULTATION: 02/22/2019 REASON FOR CONSULTATION: Elevated troponin. HISTORY OF PRESENT ILLNESS: A 58-year-old woman coming into the hospital in the setting of a fall and hypertension. She has a longstanding history of severe alcohol abuse and depression, and previously apparently was seen by Dr. Maldonado and had undergone a stress test about 4-5 years ago. This did not reveal any significant pathology. At home, she has been quite debilitated and limited in functional capacity due to her alcohol abuse. She apparently is forgetful and does not eat well up until recently when her daughter has been forcing her to eat better. She has been on sertraline and mirtazapine, and Megace helping with appetite and depression. She denies any chest pain and at home is able to use a walker to walk around, but she continues to drink heavily according to her significant other, although her case did not corroborate this, but they do feel like she is not able to take care of herself. The patient used to work at the [employer], but she is currently at home due to a fall that occurred in the setting of excessive alcohol abuse and she has been limited with mobility due to the pelvis and hip issues. Currently, denies any chest pain, no syncope, palpitations, orthopnea, or PND. PAST MEDICAL HISTORY: 1. Alcohol abuse. 2. Hypertension, which has been labile. 3. Severe depression and drug abuse. SOCIAL HISTORY: She is living at home with her significant other and her daughter. She admits to alcohol use. She has been drinking for nearly 40 years. FAMILY HISTORY: Noncontributory. REVIEW OF SYSTEMS: As noted above in HPI. PHYSICAL EXAMINATION: VITAL SIGNS: Afebrile. Initial blood pressure was 200/120, current blood pressure is 136/89, 97% on room air. Alert and oriented to person, place and time, but she is very tangential and has limited long-term memory. HEART: Normal. LUNGS: Fairly clear to auscultation anteriorly. GENERAL: She appears thin and older than stated age and she is very frail and emaciated. NEUROLOGIC: No obvious focal deficits. MUSCULOSKELETAL: No obvious trauma. EXTREMITIES: No edema. DIAGNOSTIC STUDIES: Hemoglobin 10.2, improved from prior with a hemoglobin of 7.2. Her troponin is elevated at 0.084, but is down trending to 0.072. Urine alcohol testing is negative. CT of the head demonstrates significant volume loss greater than for the stated age, likely due to her alcoholic abuse. EKG demonstrates sinus rhythm with LVH and probable prior anteroseptal infarct pattern. IMPRESSION: 1. Elevated troponin in the setting of uncontrolled blood pressure. Differential diagnosis is alcohol withdrawal versus uncontrolled blood pressure due to lack of medications. 2. Hypertension. 3. Alcohol abuse. RECOMMENDATIONS: 1. At this present time, suspect that the elevated troponin is likely secondary to blood pressure issues and we would treat conservatively, especially now that she is down trending. Given her prior history of anemia and alcohol abuse, would defer any aggressive anticoagulation. 2. Continue low-dose aspirin therapy. 3. We will obtain an echocardiogram. 4. Start carvedilol 3.125 mg b.i.d. with clonidine 0.1 mg t.i.d. p.r.n. for systolic blood pressure above 140. This can be up titrated on an outpatient basis. Discussed with Dr. Enriquez. Supportive care for now. Thank you for this consultation. DEWAYNE DUARTE MD DR: YADIRA/roxy JOB#: [id number] / [id number]
--- NOTE | 2019-02-22 18:14 | HP ---
ADMIT DATE: 02/22/2019 HISTORY OF PRESENT ILLNESS: The patient is a 58-year-old -[place] female patient who basically came to the Emergency Room after a fall and altered mental status. The patient went to the restroom this morning and she was supposed to ask for help from her daughter. She did do that. Her daughter heard a thump on the floor and found the patient fell in the bedroom on her way back from the bathroom, she was not fully responsive and the daughter called 911. The paramedics arrived. They found her blood pressure to be very high. She was slightly altered, but her mental status was improving. They then brought her to the Emergency Department for her high blood pressure. The patient is alcoholic and drinks daily. She has been diagnosed with kidney problems, liver problems, COPD, hypertension. She has not been on any hypertensive medication since November as apparently she was getting hypotensive and so ____ primary care physician discontinued her antihypertensive medication and they were never restarted or adjusted. The patient did complain of bilateral shoulder pain and also chest pain, especially when she is lying flat. The pain is not associated with exertion. She denied any nausea or vomiting. Denied any diaphoresis or shortness of breath. During these episodes, she has apparently had this pain going on for almost 2 weeks now, mostly at rest when she is lying flat. She describes some of her pain that goes through and through to the back. Her shoulder pain has started about a few days ago and made worse when she lifts her arms up, but denied any falls prior to this incident this morning, she was extensively investigated in the Emergency Room. She had had lab work, which showed that her troponin was slightly elevated at 0.084. Otherwise, as her anion gap was slightly elevated also. Her blood count was unremarkable except for normochromic normocytic anemia. Her blood alcohol level was less than 10 and her EKG showed that she was in sinus rhythm at a rate of [address] segment elevation or depression, possible Q-waves in V1 through V3. She had a CT scan of the head without contrast, which basically showed no acute intracranial finding. Decreased attenuation within the cerebral white matter, likely due to chronic small vessel disease, cerebral and cerebellar volume loss, which is greater than expected for patient's age. The patient was admitted with accelerated hypertension, alcoholism, elevated troponin. We will do 2 more sets of cardiac enzymes, check her fasting lipid profile and also consult the service attendant. PAST MEDICAL HISTORY: Significant for hypertension, generalized osteoarthritis, COPD and weight loss that is unintentional. She lost about 25 pounds from 04/2017 through 11/2017. Apparently, her weight at that time was down to 74. She apparently has gained about 20 pounds since then. PAST SURGICAL HISTORY: Significant for two C-sections. She also has esophagogastroduodenoscopy and colonoscopy. ALLERGIES: SHE IS ALLERGIC TO PENICILLIN AND ALSO ERYTHROMYCIN. MEDICATIONS: She is currently on following medications: She is on folic acid 400 mcg once a day, mirtazapine 45 mg at bedtime. She is on B12 500 mcg once a day, Protonix 40 mg once a day, Megace 20 mg once a day, sertraline 50 mg once a day. She is also on CBD 75 mg sleep relief and hemp-derived cannabis. She is also on Spiriva HandiHaler 1 inhalation once a day. FAMILY HISTORY: She has one brother who has killed at age 21. Her sister is a 42-year-old and healthy. Her brother is 45 years and healthy. Her father in his 70's because of CVA and mother in her 70's, but she does not know the cause of her . SOCIAL HISTORY: She is , has 2 sons and 2 daughters. She smokes a pack a day. She drinks up to 1 pint of vodka on a daily basis. She used to work at the [employer] at [employer]. REVIEW OF SYSTEMS: The patient denied any blurring of vision, cataract, glaucoma or macular degeneration. Denied any earache, tinnitus or sensorineural deafness. Denied any nosebleeds, stuffy nose or postnasal drip. Denied any sore throat, sore tongue, toothache, hoarseness of voice or difficulty swallowing. She did complain of nausea. Denied any hematemesis, melena or hematochezia. Denied any dysuria, frequency or hematuria. Did complain of shortness of breath, but did complain of chest pain, when she is lying flat, but denied any orthopnea, paroxysmal nocturnal dyspnea. Denied any cough, phlegm or hemoptysis. Denied any chills, rigors or fever. PHYSICAL EXAMINATION: GENERAL: On arrival to the Emergency Room, she looked somewhat pale, but no jaundice, cyanosis, or thyromegaly. No jugular venous distension. No lower limb edema. VITAL SIGNS: Her heart rate was 95, blood pressure was 181/104. Her temperature was 98.4, respiratory rate was 18 and oxygen saturation was 96%. HEAD, EYES, EARS, NOSE AND THROAT: Showed normocephalic, atraumatic. NECK: Supple. HEART: Showed normal first and second heart sounds. No gallop, rub or murmur. CHEST: Clear to auscultation. No crepitation or rhonchi. ABDOMEN: Slightly distended, soft, nontender. No guarding or rigidity. No organomegaly. All hernial orifices are intact. Bowel sounds are normal. NEUROLOGIC: She was awake, alert. All her cranial nerves are intact. EXTREMITIES: She moves extremities without difficulty. She apparently ambulates without assistance or assistive devices. LABORATORY DATA: Her lab work on arrival showed a white cell count of 10,200, hemoglobin 10, hematocrit 32, MCV 86 and platelet count of 140,000 with normal manual differential. Her serum sodium was 137, potassium 3.5, chloride 100, bicarbonate 16, anion gap 21, BUN 18, creatinine 1.2, estimated GFR was 55 mL per minute. Her glucose 115, calcium was 9.3. Total bilirubin, AST, ALT, alkaline phosphatase were normal. Her first set of troponins was less than 0.084. Total protein was 8.6, albumin was 3.8. Her blood alcohol level less than 10. Her CT scan of the head showed no acute intracranial finding, decreased attenuation within the cerebral white matter, likely due to chronic small vessel disease, cerebral and cerebellar volume loss. This is greater than expected for patient's age. Her bilateral shoulder x-ray, which showed that she has moderate to severe right glenohumeral osteoarthritis. She has slight decreased bilateral subacromial spaces any projectional or due to chronic rotator cuff pathology. ASSESSMENT AND PLAN: The patient was admitted and was continued on her medication. We will do 2 more sets of cardiac enzyme. We will consult the cardiology team and check her fasting lipid profile tomorrow. We actually started her also on alcohol withdrawal protocol and decide the further management accordingly. I will start her back on her carvedilol 12.5 mg twice a day and await the evaluation by the service attendant. ADAM REED MD DR: Josh JOB#: [id number] / [id number]
[2019-02-22 20:02] VITALS: BP 138/88
[2019-02-22] MEDS: IPRATRPIUM/ALBUTEROL 0.5/2.5MG 3 ML NEBU. NEB SCH (20:31)
[2019-02-22] MEDS ORDERED: CANNABIDIOL PO SCH (21:00)
[2019-02-22] MEDS ORDERED: MIRTAZAPINE 15 MG TABLET PO SCH (21:00)
[2019-02-22 21:04] VITALS: BP_SYST 171; BP_SYST 176; BP_DIAS 107; BP_DIAS 113
[2019-02-22] MEDS ORDERED: NITROGLYCERIN SUBLINGUAL 0.4 MG BOTTLE OF 25. SL PRN (21:30)
[2019-02-22] MEDS ORDERED: CALCIUM CARBONATE 500 MG TAB.CHEW PO PRN (21:30)
[2019-02-22 22:23] VITALS: BP 142/94
[2019-02-23] MEDS: IPRATRPIUM/ALBUTEROL 0.5/2.5MG 3 ML NEBU. NEB SCH ×2 (03:59→10:11)
[2019-02-23 05:23] VITALS: BP 153/97
[2019-02-23 07:38] LABS: ALBUMIN 3.3 g/dL (3.4-5.0); ALBUMIN/GLOBULIN RATIO 0.8 (1.0-1.7); CREATININE 1.1 mg/dL (0.6-1.0); GFR 61.5; POTASSIUM 3.3 mmol/L (3.5-5.1); TOTAL BILIRUBIN 0.3 mg/dL (0.2-1.0); TOTAL PROTEIN 7.6 g/dL (6.4-8.2)
[2019-02-23] MEDS ORDERED: CYANOCOBALAMIN (VITAMIN B-12) 1,000 MCG TABLET. PO SCH (09:00)
[2019-02-23] MEDS ORDERED: FOLIC/VIT B COMP W-C (RENAL) TABLET. PO SCH (09:00)
[2019-02-23] MEDS ORDERED: PANTOPRAZOLE 40 MG TABLET. PO SCH (09:00)
[2019-02-23] MEDS ORDERED: CARVEDILOL 6.25 MG TABLET PO SCH (09:00)
[2019-02-23] MEDS ORDERED: SERTRALINE 50 MG TABLET. PO SCH (09:00)
[2019-02-23] MEDS ORDERED: NON FORMULARY ITEM (Tiotropium Bromide (Spiriva) 18 MCG) IH SCH (09:00)
--- NOTE | 2019-02-23 09:00 | NUR ---
Cardiology here this morning, plan is to increase Coreg medication and have patient follow up with Dr. Maldonado in 1 month. Patient will have Echo today and once that is back patient is okay to discharge per cardiology.
[2019-02-23] MEDS: MEGESTROL 400 MG/10 ML ORAL.SUSP. PO SCH ×2 (09:15→12:22)
[2019-02-23] MEDS ORDERED: NICOTINE 21MG PATCH. TD SCH (10:00)
[2019-02-23 11:37] VITALS: BP 155/91
--- NOTE | 2019-02-23 14:21 | CARD ---
MR#: [id number] Date of Study: 02/23/2019 Ordering Physician: DEWAYNE DUARTE, Referring Physician: ADAM REED Tech: Alisa Boateng ARELIS APPROVED REPORT EXAM: Two-dimensional and M-mode echocardiogram with Doppler and color Doppler. Other Information Quality : Fair INDICATION Hypertension/HCVD Elevated Troponin 2D DIMENSIONS RVDd2.4 (2.9-3.5cm)Left Atrium(2D)2.6 (1.6-4.0cm) IVSd1.1 (0.7-1.1cm)Aortic Root(2D)2.5 (2.0-3.7cm) LVDd3.1 (3.9-5.9cm)LVOT Diameter2.0 (1.8-2.4cm) PWd1.1 (0.7-1.1cm)LVDs1.9 (2.5-4.0cm) FS (%) 30.0 %SV26.3 ml LVEF(%)60.0 (>50%) Aortic Valve AoV Peak Filippo.181.9cm/sAoV VTI22.9cm AO Peak GR.13.2mmHgAO Mean GR.5mmHg LAUREN (VTI)2.34cm2 Mitral Valve MV E Tcayukjg04.5cm/sMV DECEL [id number] MV A Yvabstmq16.1cm/sE/A Ratio0.6 LEFT VENTRICLE The left ventricle is normal size. There is normal left ventricular wall thickness. The left ventricu lar systolic function is normal and the ejection fraction is within normal range. The Ejection Fracti on is 60-65%. There is normal LV segmental wall motion. Transmitral Doppler flow pattern is Grade I-a bnormal relaxation pattern. RIGHT VENTRICLE The right ventricle is normal size. The right ventricular systolic function is normal. ATRIA The left atrium size is normal. The right atrium size is normal. The interatrial septum is intact wit h no evidence for an atrial septal defect or patent foramen ovale as noted on 2-D or Doppler imaging. AORTIC VALVE The aortic valve is not well visualized. Grossly it appears trileaflet. Doppler and Color Flow reveal ed no significant aortic regurgitation. There is no significant aortic valvular stenosis. MITRAL VALVE The mitral valve is calcified but opens well. There is no evidence of mitral valve prolapse. There is no mitral valve stenosis. Doppler and Color Flow revealed no mitral valve regurgitation noted. TRICUSPID VALVE The tricuspid valve is normal in structure and function. Doppler and Color Flow revealed no tricuspid valve regurgitation noted. There is no tricuspid valve stenosis. PULMONIC VALVE The pulmonic valve is not well visualized. Doppler and Color Flow revealed no pulmonic valvular regur gitation. There is no pulmonic valvular stenosis. GREAT VESSELS The aortic root is normal in size. The ascending aorta is not well seen. The IVC is normal in size an d collapses >50% with inspiration. PERICARDIAL EFFUSION There is no evidence of significant pericardial effusion. Critical Notification Critical Value: No <Conclusion> The left ventricular systolic function is normal and the ejection fraction is within normal range. Th e Ejection Fraction is 60-65%. There is normal LV segmental wall motion. Signed by : Dewayne Duarte, Electronically Approved : 02/23/2019 14:20:29
--- NOTE | 2019-02-23 14:53 | NUR ---
Plan is discharge home with family, able to verbalize POC and DC instructions. Scripts given to patient. IV removed at this time and belongings with patient.
[2019-02-23] MEDS ORDERED: ATOR10TA PO (14:57)
--- NOTE | 2019-02-23 15:00 | NUR ---
Patient ambulated off unit via wheelchair with family at this time. Verbalize POC at this time.
[2019-02-23] MEDS ORDERED: CARV25TA PO (15:01)
--- NOTE | 2019-02-23 15:18 | PDOC ---
PROGRESS NOTES Diagnosis Problem Problems Medical Problems: (1) Alcoholism Status: Acute (2) Elevated troponin Status: Acute (3) Hypertension Status: Acute (4) Increased anion gap metabolic acidosis Status: Acute Assessment Problems Medical Problems: (1) Alcoholism Status: Acute (2) Elevated troponin Status: Acute (3) Hypertension Status: Acute (4) Increased anion gap metabolic acidosis Status: Acute Uncontrolled hypertension - continue current medications. will increase coreg today. will need follow up in 2-3 weeks for recheck of blood pressure. elevated trop - likely secondary to LV strain and uncontrolled hypertension. await echo and could consider outpatient MPI alcoholism - cessation encouraged. Subjective no complaints. wants to go home. no chest pain, breathing easy Objective Vital Signs Date Time Temp Pulse Resp B/P (MAP) Pulse Ox O2 Delivery O2 Flow Rate FiO2 02/23/19 11:37 98.7 86 20 155/91 (112) 99 Room Air Intake and Output 02/23/19 07:00 Intake Total 750 ml Balance 750 ml Intake Oral 750 ml # Voids 1 Physical Exam gen: awake, alert, no acute distress CV: RRR, no gallops, clicks or rubs Lungs:few exp wheeze, no crackles or rhonchi abd: soft, non tender, +bowel sounds ext: no edema Review of Relevant I have reviewed the following items nuno (where applicable) has been applied. Labs Laboratory Tests Test 02/22/19 10:18 02/22/19 16:00 02/22/19 21:25 02/23/19 07:04 White Blood Count 10.2 x10^3/uL (4.0-11.0) Red Blood Count 3.77 x10^6/uL (3.50-5.40) Hemoglobin 10.2 g/dL (12.0-15.5) Hematocrit 32.5 % (36.0-47.0) Mean Corpuscular Volume 86 fL (79-100) Mean Corpuscular Hemoglobin 27 pg (25-35) Mean Corpuscular Hemoglobin Concent 31 g/dL (31-37) Red Cell Distribution Width 14.5 % (11.5-14.5) Platelet Count 140 x10^3/uL (140-400) Neutrophils (%) (Auto) 61 % (31-73) Lymphocytes (%) (Auto) 31 % (24-48) Monocytes (%) (Auto) 6 % (0-9) Eosinophils (%) (Auto) 1 % (0-3) Basophils (%) (Auto) 1 % (0-3) Neutrophils # (Auto) 6.3 x10^3uL (1.8-7.7) Lymphocytes # (Auto) 3.2 x10^3/uL (1.0-4.8) Monocytes # (Auto) 0.6 x10^3/uL (0.0-1.1) Eosinophils # (Auto) 0.1 x10^3/uL (0.0-0.7) Basophils # (Auto) 0.1 x10^3/uL (0.0-0.2) Sodium Level 137 mmol/L (136-145) 141 mmol/L (136-145) Potassium Level 3.5 mmol/L (3.5-5.1) 3.3 mmol/L (3.5-5.1) Chloride Level 100 mmol/L (98-107) 105 mmol/L (98-107) Carbon Dioxide Level 16 mmol/L (21-32) 22 mmol/L (21-32) Anion Gap 21 (6-14) 14 (6-14) Blood Urea Nitrogen 18 mg/dL (7-20) 24 mg/dL (7-20) Creatinine 1.2 mg/dL (0.6-1.0) 1.1 mg/dL (0.6-1.0) Estimated GFR (Cockcroft-Gault) 55.6 61.5 BUN/Creatinine Ratio 15 (6-20) 22 (6-20) Glucose Level 115 mg/dL (70-99) 100 mg/dL (70-99) Calcium Level 9.3 mg/dL (8.5-10.1) 9.0 mg/dL (8.5-10.1) Total Bilirubin 0.2 mg/dL (0.2-1.0) 0.3 mg/dL (0.2-1.0) Aspartate Amino Transf (AST/SGOT) 36 U/L (15-37) 26 U/L (15-37) Alanine Aminotransferase (ALT/SGPT) 17 U/L (14-59) 16 U/L (14-59) Alkaline Phosphatase 66 U/L (46-116) 60 U/L (46-116) Troponin I Quantitative 0.084 ng/mL (0-0.055) 0.072 ng/mL (0-0.055) 0.066 ng/mL (0-0.055) Total Protein 8.6 g/dL (6.4-8.2) 7.6 g/dL (6.4-8.2) Albumin 3.8 g/dL (3.4-5.0) 3.3 g/dL (3.4-5.0) Albumin/Globulin Ratio 0.8 (1.0-1.7) 0.8 (1.0-1.7) Ethyl Alcohol Level < 10 mg/dL (0-10) Triglycerides Level 170 mg/dL (0-150) Cholesterol Level 302 mg/dL (0-200) LDL Cholesterol, Calculated 182 mg/dL (0-100) VLDL Cholesterol, Calculated 34 mg/dL (0-40) Non-HDL Cholesterol Calculated 216 mg/dL (0-129) HDL Cholesterol 86 mg/dL (40-60) Cholesterol/HDL Ratio 3.0 Lipase 126 U/L (73-393) Medications Current Medications Clonidine HCl (Catapres) 0.2 mg 1X ONCE PO Last administered on 02/22/19at 10:44 ; Start 02/22/19 at 10:50; Stop 02/22/19 at 10:51; Status DC Albuterol/ Ipratropium (Duoneb) 3 ml 1X ONCE NEB Last administered on at 11:18; Start 02/22/19 at 11:30; Stop 02/22/19 at 11:31; Status DC Metoprolol Tartrate (Lopressor Vial) 5 mg 1X ONCE IV Last administered on 11:19; Start 02/22/19 at 11:30; Stop 02/22/19 at 11:31; Status DC Chlordiazepoxide (Librium) 25 mg 1X ONCE PO Last administered on 02/22/19at 11: 58; Start 02/22/19 at 12:00; Stop 02/22/19 at 12:01; Status DC Carvedilol (Coreg) 3.125 mg BIDWMEALS PO Last administered on 02/22/19at 17:43; Start 02/22/19 at 17:30; Stop 02/23/19 at 09:06; Status DC Cyanocobalamin (Vitamin B-12) 1,000 mcg DAILY PO Last administered on 02/23/19 09:15; Start 02/23/19 at 09:00 Sertraline HCl (Zoloft) 50 mg DAILY PO Last administered on 02/23/19 09:15; Start 02/23/19 at 09:00 Non-Formulary Medication (Cannabidiol (Cbd) Extract (Epidiolex)) 75 mg HS PO ; Start 02/22/19 at 21:00; Status UNV Multivit/Ca Carb/ B Cmplx/FA/Prenat (Nephro-Charlotte) 1 tab DAILY PO Last administered on 02/23/19 09:15; Start 02/23/19 at 09:00 Megestrol Acetate (Megace) 625 mg TIDAC PO Last administered on 02/23/19 12:22 ; Start 02/23/19 at 07:30 Mirtazapine (Remeron) 45 mg QHS PO Last administered on 02/22/19 21:36; Start 02/22/19 at 21:00 Pantoprazole Sodium (Protonix) 40 mg DAILY PO Last administered on 02/23/19 09: 15; Start 02/23/19 at 09:00 Non-Formulary Medication (Tiotropium [place] (Spiriva)) 18 mcg DAILY IH ; Start 02/23/19 at 09:00; Status UNV Albuterol/ Ipratropium (Duoneb) 3 ml RTQID NEB Last administered on 02/23/19 10 :11; Start 02/22/19 at 20:00 Nitroglycerin (Nitrostat) 0.4 mg PRN Q5MIN PRN SL CHEST PAIN; Start 02/22/19 at 21:30 Calcium Carbonate/ Glycine (Tums) 500 mg PRN AFTMEALHC PRN PO INDIGESTION; Start 02/22/19 at 21:30 Carvedilol (Coreg) 6.25 mg BIDWMEALS PO Last administered on 02/23/19 09:15; Start 02/23/19 at 09:00 Nicotine (Nicoderm Cq 21mg) 1 patch DAILY TD Last administered on 02/23/19 11: 11; Start 02/23/19 at 10:00 Active Scripts Active Coreg (Carvedilol) 25 Mg Tablet 6.25 Mg PO BIDWMEALS 30 Days Lipitor (Atorvastatin Calcium) 10 Mg Tablet 1 Tab PO QHS 30 Days Reported Zoloft (Sertraline Hcl) 50 Mg Tablet 1 Tab PO DAILY Pantoprazole Sodium 40 Mg Tablet.dr 1 Tab PO DAILY Nephro-Charlotte Tablet (Folic Acid/Vitamin B Comp W-C) 0.8 Mg Tablet 1 Tab PO DAILY Epidiolex (Cannabidiol (Cbd) Extract) 100 Mg/1 Ml Solution 75 Mg PO HS Megace Es (Megestrol Acetate) 625 Mg/5 Ml Oral.susp 625 Mg PO TIDAC Spiriva (Tiotropium [place]) 18 Mcg Cap.w.dev 18 Mcg IH DAILY LAST DOSE GIVEN: DATE: TODAY TIME: AM NEXT DOSE DUE: DATE: TOMORROW TIME: AM Mirtazapine 45 Mg Tablet 1 Tab PO QHS LAST DOSE GIVEN: NOT GIVEN THIS ADMISSION NEXT DOSE DUE: DATE: TODAY TIME: AT BEDTIME Vitamin B-12 (Cyanocobalamin (Vitamin B-12)) 1,000 Mcg Tablet 1,000 Mcg PO DAILY LAST DOSE GIVEN: DATE: TODAY TIME: AM NEXT DOSE DUE: DATE: TOMORROW TIME: AM Vitals/I & O Vital Sign - Last 24 Hours 02/22/19 02/22/19 02/22/19 02/22/19 15:15 17:43 20:00 20:02 Temp 97.4 99.0 Pulse 87 87 85 Resp 20 20 B/P (MAP) 136/89 (105) 136/89 138/88 (105) Pulse Ox 97 97 O2 Delivery Room Air Room Air Room Air 02/22/19 02/22/19 02/22/19 02/22/19 20:32 21:04 21:04 22:23 Temp 98.4 98.9 Pulse 74 83 Resp 22 20 B/P (MAP) 171/113 (132) 176/107 (130) 142/94 (110) Pulse Ox 96 99 97 O2 Delivery Room Air Room Air 02/23/19 02/23/19 02/23/19 02/23/19 04:00 05:23 08:30 09:15 Temp 99.0 Pulse 80 80 Resp 22 B/P (MAP) 153/97 (115) 153/97 Pulse Ox 98 98 O2 Delivery Room Air Room Air 02/23/19 02/23/19 10:11 11:37 Temp 98.7 Pulse 86 Resp 20 B/P (MAP) 155/91 (112) Pulse Ox 100 99 O2 Delivery Room Air Room Air Intake and Output 02/22/19 02/22/19 02/23/19 15:00 23:00 07:00 Intake Total 510 ml 240 ml Balance 510 ml 240 ml ALEC SORIANO [employer] Feb 23, 2019 15:18
--- NOTE | 2019-02-23 16:24 | DS ---
DATE OF DISCHARGE: 02/22/2019 HISTORY OF PRESENT ILLNESS: The patient is a 58-year-old -[place]i female patient who came to the Emergency Room complaining of chest pain, especially when she lies flat and also pain in both shoulders when she lift her hands up. She has had 3 sets of cardiac enzyme that was slightly elevated, but consistent with accelerated hypertension. That is probably because she was in alcohol withdrawal. Her echocardiogram showed that her left ventricular systolic function is normal with an ejection fraction of 60-65%. There is normal left ventricular segmental wall motion. Her fasting lipid profile showed that her triglycerides were high at 170, total cholesterol was 302, LDL was 182, VLDL was 34 and the ratio was 3. Her lipase was normal at 126. PHYSICAL EXAMINATION: GENERAL: When I examined her this afternoon, she was resting slightly propped up in bed, in no apparent respiratory distress. No pallor, jaundice, cyanosis, or thyromegaly. No jugular venous distension. No limb edema. VITAL SIGNS: Her heart rate was 86, blood pressure 155/91 and temperature was 98.7, respiratory rate 20, and oxygen saturation was 99% on room air. HEAD, EYES, EARS, NOSE AND THROAT: Showed normocephalic, atraumatic. NECK: Supple. HEART: Showed normal first and second heart sounds. No gallop, rub or murmur. CHEST: Clear to auscultation. No crepitation or rhonchi. ABDOMEN: Distended, soft, nontender. NEUROLOGIC: She was awake, alert, responding appropriately. All her cranial nerves are intact. EXTREMITIES: She moves extremities without difficulty. She ambulates without assistance or assistive devices. Her intake was 750. No output was recorded. LABORATORY DATA: Her lab work this morning showed a white cell count of 10,000, hemoglobin 10, hematocrit 33, MCV 86 and platelet count 140,000. Her chemistry this morning showed a serum sodium 141, potassium 3.3, chloride 105, bicarbonate 22, anion gap of 14, BUN 24, creatinine 1.1, estimated GFR was 61 mL per minute. Her glucose 100, calcium was 9. Total bilirubin, AST, ALT, alkaline phosphatase were normal. Total protein was 7.6, albumin 3.3. DISCHARGE MEDICATIONS: The patient was discharged home to continue on following medications: Atorvastatin calcium for Lipitor 10 mg at bedtime, CBD or cannabidiol extract 100 mg per 1 mL solution 75 mg at bedtime for sleep, cyanocobalamin 1000 mcg once a day, folic acid with vitamin complex for Nephro-Charlotte 1 tablet once a day, Megace 625 mg 2 times a day before meals, mirtazapine 45 mg at bedtime, Protonix 40 mg once a day, sertraline for Zoloft 50 mg once a day and Spiriva HandiHaler 1 inhalation once a day. She was also discharged on Coreg 6.25 mg twice a day. FINAL DISCHARGE DIAGNOSES: 1. Chest pain, atypical. 2. Mildly elevated troponin, most likely related to accelerated hypertension. Poorly controlled hypertension for which she was started on 6.25 mg of carvedilol twice a day. 3. Gastroesophageal reflux disease for which she is on Protonix. 4. Severe anorexia and poor oral intake and weight loss has responded very well to Megace. She has gained almost 20 pounds. ADAM REED MD DR: DEENA/roxy JOB#: [id number] / [id number]
== END 2019-02-23 15:00 | disposition home or self-care (01) | DRG 897 ==
LOC: ER 10:09 → 1 SOUTH 11:45 → ER 12:10
PROVIDERS: ADMIT Internal Medicine; ATTEND Internal Medicine
DX: F10.239 Alcohol dependence with withdrawal, unspecified (principal); E87.2 Acidosis; I10 Essential (primary) hypertension; J44.9 Chronic obstructive pulmonary disease, unspecified; F32.9 Major depressive disorder, single episode, unspecified; W18.39XA Other fall on same level, initial encounter; M15.9 Polyosteoarthritis, unspecified; K21.9 Gastro-esophageal reflux disease without esophagitis; D64.9 Anemia, unspecified; F17.210 Nicotine dependence, cigarettes, uncomplicated; Z88.1 Allergy status to other antibiotic agents; Z88.0 Allergy status to penicillin; Y93.89 Activity, other specified; Y92.89 Other specified places as the place of occurrence of the external cause; Y99.8 Other external cause status; Z82.3 Family history of stroke
CPT/HCPCS: 36415; 70450; 73030; 80053; 80061; 83690; 84484; 85025; 93005; 93306; 94640; 96374; 99406; G0480; J3490; J7620; 99285-25

== ENCOUNTER 2019-04-06 02:45 | Inpatient (IN) | payer SELFPAY ==
[~2019-04-06] VITALS: Ht 157.5 cm; Wt 41.6 kg
[~2019-04-06 02:45] MED LIST changes: +ATOR10TA PO; +CANN100S PO; +CARV25TA PO; +FOLI0.8T33 PO; +PANT40TA5 PO; +SERT50TA PO
--- NOTE | 2019-04-06 02:50 | ED.ADGEN ---
Past History Past Medical History: Alcoholism, Anemia, Anxiety, COPD, Depression, DVT, Hypertension, Seizure, Other Past Surgical History: Smoking: Cigarettes Alcohol Use: Heavy Drug Use: None Adult General Chief Complaint Chief Complaint ".. I guess .. I had a seizure...." ".. I bit my tongue...".. " I did not want to come in... but my daughter made the mold repair technician's take me..." HPI HPI Patient is a 58 year old female who presents with hx of tonic clonic seizure. Patient apparently has been having tonic clonic seizures of increased frequency for the past month and a half. Pt. states seizures started in Nov. of this year. Pt. states she has been to [facility] 9 x this year for same thing. Pt. not taking any seizure meds. Patient recently admitted in February 22 for syncopal episode which patient states was probably a seizure. Patient in the past to follow-up with Dr. Self, and Dr. Paredes. The pt. does reportedly has an appointment at 3 PM today with [facility]'s. Patient has known history of COPD, DVTs, marijuana and tobacco use, depression, alcohol abuse, and alcohol withdrawal seizures. Patient also help with an elevated troponin on previous visit. Patient has not followed up with cardiology. Patient does smoke tobacco and marijuana. Patient states she drinks approximately half pint of alcohol a day. She states she did drink today. Review of Systems Review of Systems History of seizure tonic-clonic Constitutional: Denies fever or chills [] Eyes: Denies change in visual acuity, redness, or eye pain [] HENT: Denies nasal congestion or sore throat [] Respiratory: Denies cough or shortness of breath [] Cardiovascular: No additional information not addressed in HPI [] GI: Denies abdominal pain, nausea, vomiting, bloody stools or diarrhea [] : Denies dysuria or hematuria [] Musculoskeletal: Denies back pain or joint pain [] Integument: Denies rash or skin lesions [] Neurologic: Denies headache, focal weakness or sensory changes [] Endocrine: Denies polyuria or polydipsia [] All other systems were reviewed and found to be within normal limits, except as documented in this note. Family History Family History Mother 84, Father 62 both reportedly from their HTN. Current Medications Current Medications Current Medications Medications (Trade) Dose Ordered Sig/Suzanne Start Time Stop Time Status Last Admin Dose Admin Acetaminophen (Tylenol) 650 mg PRN Q4HRS PRN 04/06/19 05:00 04/07/19 04:59 Albuterol/ Ipratropium (Duoneb) 3 ml QID 04/06/19 09:00 UNV Clonidine HCl (Catapres Tts-1) 1 patch WEEKLY 04/06/19 09:00 Clonidine HCl (Catapres) 0.1 mg 1X ONCE 04/06/19 03:15 04/06/19 03:16 DC 04/06/19 03:18 0.1 MG Folic Acid (FOLIC ACID SYRINGE for ER) 5 mg STK-MED ONCE 04/06/19 03:24 04/06/19 03:25 DC Furosemide (Lasix) 20 mg 1X ONCE 04/06/19 06:00 04/06/19 06:01 UNV Lactated Ringer's 1,000 ml @ 75 mls/hr 1X ONCE 04/06/19 05:15 04/06/19 18:34 Lorazepam (Ativan Inj) 1 mg QID 04/06/19 09:00 Magnesium Sulfate 50 ml @ 25 mls/hr 1X ONCE 04/06/19 05:15 04/06/19 07:14 Multivitamins/ Minerals (Infuvite Adult) 10 ml STK-MED ONCE 04/06/19 03:23 04/06/19 03:24 DC Multivitamins/ Minerals 10 ml/ Folic Acid 1 mg/ Thiamine HCl 100 mg/Lactated Ringer's 1,011.2 ml @ 1,011.2 mls/hr DAILY 04/06/19 09:00 Ondansetron HCl (Zofran) 4 mg PRN Q4HRS PRN 04/06/19 05:15 04/07/19 05:14 Phytonadione (Vitamin K) 10 mg STK-MED ONCE 04/06/19 03:23 04/06/19 03:24 DC Sodium Bicarbonate (Sodium Bicarb Adult 8.4% Syr) 50 meq 1X ONCE 04/06/19 05:15 04/06/19 05:16 DC 04/06/19 05:15 50 MEQ Thiamine HCl (Thiamine Vial) 200 mg STK-MED ONCE 04/06/19 03:23 04/06/19 03:24 DC Allergies Allergies Allergies Coded Allergies Type Severity Reaction Last Updated Verified erythromycin base Allergy Intermediate DIARRHEA 08/28/18 Yes Penicillins Allergy Mild Anaphylaxis 08/28/18 Yes Physical Exam Physical Exam Constitutional: moderately acute distress, non-toxic appearance. [] HENT: Normocephalic, bite hayes to tongue ,bilateral external ears normal, oropharynx moist, no oral exudates, nose normal. [] Eyes: PERRLA, EOMI, conjunctiva pale, no discharge. [] Neck: Normal range of motion, no tenderness, supple, no stridor. [] Cardiovascular:Heart rate regular rhythm, no murmur [] Lungs & Thorax: Bilateral breath sounds equal apex with few scattered wheezes on Auscultation [] Abdomen: Bowel sounds normal, soft, no tenderness, no masses, no pulsatile masses. Old surgical scar Skin: Warm, dry, no erythema, no rash. Poor turgor. Back: No tenderness, no CVA tenderness. [] Extremities: no cyanosis, no clubbing, moves ext. on request, no edema. [] Generalized weakness. Lt. hip pain. Generalize muscle loss. Neurologic: Alert and oriented X 3, moves all extremities on request,, distal sensory function, decrease sensory plantar sensation, no gross focal deficits noted. []DTRs +2 patella and brachial. [employer] equal but very weak. . Right-hand dominant. Marked Tremor. Unable to stand to complete the chest x-ray because of her weakness and shaking. Psychologic: Affect anxious, judgement normal, mood normal. [] Current Patient Data Vital Signs Vital Signs Date Time Temp Pulse Resp B/P (MAP) Pulse Ox O2 Delivery O2 Flow Rate FiO2 04/06/19 04:39 87 18 131/ 99 Room Air 04/06/19 02:52 98.5 Lab Results Laboratory Tests Test 04/06/19 04:14 White Blood Count 7.5 x10^3/uL (4.0-11.0) Red Blood Count 3.28 x10^6/uL (3.50-5.40) L Hemoglobin 8.9 g/dL (12.0-15.5) L Hematocrit 27.5 % (36.0-47.0) L Mean Corpuscular Volume 84 fL (79-100) Mean Corpuscular Hemoglobin 27 pg (25-35) Mean Corpuscular Hemoglobin Concent 32 g/dL (31-37) Red Cell Distribution Width 15.0 % (11.5-14.5) H Platelet Count 117 x10^3/uL (140-400) L Neutrophils (%) (Auto) 63 % (31-73) Lymphocytes (%) (Auto) 22 % (24-48) L Monocytes (%) (Auto) 13 % (0-9) H Eosinophils (%) (Auto) 2 % (0-3) Basophils (%) (Auto) 1 % (0-3) Neutrophils # (Auto) 4.7 x10^3uL (1.8-7.7) Lymphocytes # (Auto) 1.7 x10^3/uL (1.0-4.8) Monocytes # (Auto) 0.9 x10^3/uL (0.0-1.1) Eosinophils # (Auto) 0.1 x10^3/uL (0.0-0.7) Basophils # (Auto) 0.1 x10^3/uL (0.0-0.2) Erythrocyte Sedimentation Rate 72 (0-25) H Prothrombin Time 10.1 SEC (9.4-11.4) Prothrombin Time INR 1.0 (0.9-1.1) PTT 26 SEC (23-33) Sodium Level 130 mmol/L (136-145) L Potassium Level 4.2 mmol/L (3.5-5.1) Chloride Level 93 mmol/L (98-107) L Carbon Dioxide Level 19 mmol/L (21-32) L Anion Gap 18 (6-14) H Blood Urea Nitrogen 24 mg/dL (7-20) H Creatinine 1.3 mg/dL (0.6-1.0) H Estimated GFR (Cockcroft-Gault) 50.7 Glucose Level 82 mg/dL (70-99) Calcium Level 9.9 mg/dL (8.5-10.1) Magnesium Level 1.5 mg/dL (1.8-2.4) L Creatine Kinase 107 U/L (26-192) Troponin I Quantitative < 0.017 ng/mL (0-0.055) AY-Evy-H-Type Natriuretic Peptide 1249 pg/mL (0-124) H Ethyl Alcohol Level < 10 mg/dL (0-10) EKG EKG My interpretation EKG shows sinus rhythm at 81 bpm. This nonspecific and appears septal changes. But no findings of acute STEMI with contralateral changes. [] Radiology/Procedures Radiology/Procedures My interpretation CT of head shows no shift, mass, edema, bleed, or fracture. Does have generalized atrophy. My Interpretation CT neck shows no obvious fracture dislocation but multiple level degenerative joint changes. My interpretation chest x-ray shows COPD / Emphysema type changes. No large infiltrate. Does have some granulomas. See formal report when available.[] Course & Med Decision Making Course & Med Decision Making Pertinent Labs and Imaging studies reviewed. (See chart for details) Discussed presentation, testing and tx. plan with Dr. Villalobos. Pt. admitted to Dr. Wilfredo cedillo Neuro and Cardiology consult.s Daughter advised pt. has had increased episodes of Tonic Clonic seizures. Pt. has hx of depression. Hx. of periodic alcohol binges with periodic abstinence. [] Final Impression Final Impression 1. Tonic-clonic seizure- Possible ETOH withdrawal (ETOH < 10) 2. History of alcohol abuse 3. History of COPD 4. Tobacco and marijuana use 5. Accelerated hypertension[] 6. Anemia 8.9 Hgb 7. Thrombocytopenia 117 8. Hypomagnesium 1.5 9. Hyponatremia 130 10.Elevated Creat/Bun 124/1.3 Dragon Disclaimer Dragon Disclaimer This electronic medical record was generated, in whole or in part, using a voice recognition dictation system. JACKIE LEAL MD April 06, 2019 02:50
[2019-04-06] MEDS ORDERED: MVI, ADULT NO.4 WITH VIT K 10 ML, FOLIC ACID SYRINGE for ER 1 MG, THIAMINE INJ 100 MG i... IV ONE ×4 (03:15)
[2019-04-06] MEDS ORDERED: cloNIDine HCL 0.1 MG TABLET PO ONE (03:15)
[2019-04-06] MEDS ORDERED: MVI, ADULT NO.4 WITH VIT K 10 ML VIAL IV ONE (03:23)
[2019-04-06] MEDS ORDERED: THIAMINE 200 MG/2 ML VIAL. IV ONE (03:23)
[2019-04-06] MEDS ORDERED: PHYTONADIONE 10 MG/ML AMPUL. ONE (03:23)
[2019-04-06] MEDS ORDERED: FOLIC ACID 5 MG/ML SYRINGE for ER IV ONE (03:24)
--- NOTE | 2019-04-06 04:22 | RAD ---
PQRS Compliance Statement: One or more of the following individualized dose reduction techniques were utilized for this examination: 1. Automated exposure control 2. Adjustment of the mA and/or kV according to patient size 3. Use of iterative reconstruction technique CT HEAD AND CERVICAL SPINE WITHOUT CONTRAST History: Seizures, falls. Comparison: CT head without contrast, February 22, 2019. Procedure: Axial images are obtained of the head from the skull base through the vertex without IV contrast. Noncontrast helical CT of the cervical spine was performed. Axial, sagittal, and coronal reconstructions were obtained. Findings: The ventricles and sulci are prominent, consistent with age-related cerebral atrophy. There is supratentorial white matter hypoattenuation. This is a nonspecific finding but is commonly due to chronic small vessel ischemic disease in a patient of this age. No mass-effect, midline shift, hemorrhage or obvious acute infarction is identified. Basilar cisterns are patent. Bone windows demonstrate no significant calvarial abnormality. The visualized paranasal sinuses are clear. Mastoid air cells are well aerated. There is no evidence of acute fracture or acute malalignment of the cervical spine. Left mandible periapical lucencies are partially seen. Moderate multilevel facet hypertrophy of the upper cervical spine. Grade 1 anterolisthesis of C2 on C3, C3 on C4, and C4 on C5. Alignment is otherwise maintained. There is moderate disc space narrowing and degenerative endplate spurring and uncinate process hypertrophy of C5/C6 and C6/C7. The craniovertebral junction is maintained. Visualized soft tissues of the neck demonstrate no significant abnormalities. The visualized lung apices are clear. IMPRESSION: 1. No acute intracranial abnormality. 2. Generalized cerebral atrophy. 3. No acute fracture of the cervical spine. 4. Moderate degenerative spondylosis of the cervical spine. Electronically signed by: Jordan Calderon MD (04/06/2019 4:19 AM) [id number]
[2019-04-06 04:27] LABS: BASO # 0.1 x10^3/uL (0.0-0.2); BASO % 1 % (0-3); EOS # 0.1 x10^3/uL (0.0-0.7); EOS % 2 % (0-3); HEMATOCRIT 27.5 % (36.0-47.0); HEMOGLOBIN 8.9 g/dL (12.0-15.5); LYMPH # 1.7 x10^3/uL (1.0-4.8); LYMPH % 22 % (24-48); MEAN CORPUSCULAR HEMOGLOBIN 27 pg (25-35); MEAN CORPUSCULAR HGB CONC 32 g/dL (31-37); MEAN CORPUSCULAR VOLUME 84 fL (79-100); MONO # 0.9 x10^3/uL (0.0-1.1); MONO % 13 % (0-9); NEUT # 4.7 x10^3uL (1.8-7.7); NEUT % 63 % (31-73); PLATELET COUNT 117 x10^3/uL (140-400); RED BLOOD COUNT 3.28 x10^6/uL (3.50-5.40); WHITE BLOOD COUNT 7.5 x10^3/uL (4.0-11.0)
[2019-04-06 04:50] LABS: CALCIUM 9.9 mg/dL (8.5-10.1); CREATININE 1.3 mg/dL (0.6-1.0); GFR 50.7; MAGNESIUM 1.5 mg/dL (1.8-2.4); POTASSIUM 4.2 mmol/L (3.5-5.1)
[2019-04-06] MEDS ORDERED: ACETAMINOPHEN 325 MG TABLET PO PRN (05:00)
[2019-04-06] MEDS ORDERED: IV RINGERS SOLUTION,LACTATED 1,000 ML IV ONE (05:15)
[2019-04-06] MEDS ORDERED: ONDANSETRON PF 4 MG/2 ML VIAL. IV PRN (05:15)
[2019-04-06] MEDS ORDERED: MAGNESIUM SULFATE 2GM 50 ML IV ONE (05:15)
[2019-04-06] MEDS ORDERED: SODIUM BICARB ADULT 8.4% 50 MEQ/50 ML DISP.SYRIN. IV ONE (05:15)
[2019-04-06 05:25] LABS: SEDIMENTATION RATE 72 (0-25)
[2019-04-06] MEDS ORDERED: FUROSEMIDE 40 MG/4 ML VIAL IVP ONE (06:00)
[2019-04-06] MEDS: IPRATRPIUM/ALBUTEROL 0.5/2.5MG 3 ML NEBU. NEB SCH ×2 (08:00→09:26)
--- NOTE | 2019-04-06 08:22 | RAD ---
CHEST AP ONLY History: Seizure Comparison: August 28, 2018 Findings: Single view of the chest is submitted. There is no infiltrate, pneumothorax, or effusion. The pericardial cardiac silhouette is within normal limits in size. There is degenerative change of the right shoulder. Impression: 1. There is no radiographic evidence of acute cardiopulmonary disease. Electronically signed by: Xavier Batres MD (04/06/2019 8:19 AM) [facility]
--- NOTE | 2019-04-06 08:24 | PDOC2 ---
CARDIAC CONSULT DATE OF CONSULT Date Of Consult DATE: 04/06/19 TIME: 08:14 REASON FOR CONSULT Reason for Consult CHF Accelerated hypertension REFERRING PHYSICIAN Referring Physician Dr. Carter SOURCE Source: Chart review, Patient HPI History of Present Illness This is a 58 yo female, with a history of hypertension, COPD, alcohol abuse, and depression, who presented secondary to seizure activity. Daughter reports witnessed seizure around 3 am this morning. She reports about 5 seizure in the last month and a half. Has had no formal evaluation for seizures. Has not slept for 3 days. Has bene slightly short of breath the last week or so. No fevers or LE edema. Denies any chest pain, palpitations, dizziness, or diaphoresis. Daughter report intermittent episode of vomiting for the last couple of months. BP noted to be elevated this morning upon arrival, which prompted this consult. Of note, patient has not had routine BP meds today. Lives at home with daughter who ensures she takes her medications daily. PAST MEDICAL HISTORY Cardiovascular: HTN, hyperipidemia Pulmonary: COPD GI: GERD Heme/Onc: Other (DVT) Hepatobiliary: No pertinent hx Psych: Addictions (ETOH), Depression Musculoskeletal: Osteoarthritis Infectious disease: No pertinent hx ENT: No pertinent hx Renal/: Chronic renal insuff Endocrine: No pertinent hx Dermatology: No pertinent hx PAST SURGICAL HISTORY Past Surgical History: No pertinent history FAMILY HISTORY Family History: Heart Disease, Hypertension, Stroke SOCIAL HISTORY Smoke: 2 packs per day ALCOHOL: heavy Drugs: None Lives: with Family CURRENT MEDICATIONS Current Medications Current Medications Lorazepam (Ativan Inj) 1 mg 1X ONCE IV Last administered on 04/06/19at 03:18; Start 04/06/19 at 03:15; Stop 04/06/19 at 03:16; Status DC Clonidine HCl (Catapres) 0.1 mg 1X ONCE PO Last administered on 04/06/19at 03:18; Start 04/06/19 at 03:15; Stop 04/06/19 at 03:16; Status DC Multivitamins/ Minerals 10 ml/ Folic Acid 1 mg/ Thiamine HCl 100 mg/Lactated Ringer's 1,011.2 ml @ 1,011.2 mls/hr 1X ONCE IV Last administered on 04/06/19at 03:15; Start 04/06/19 at 03:15; Stop 04/06/19 at 04:14; Status DC Phytonadione (Vitamin K) 10 mg STK-MED ONCE .ROUTE ; Start 04/06/19 at 03:23; Stop 04/06/19 at 03:24; Status DC Thiamine HCl (Thiamine Vial) 200 mg STK-MED ONCE IV ; Start 04/06/19 at 03:23; Stop 04/06/19 at 03:24; Status DC Multivitamins/ Minerals (Infuvite Adult) 10 ml STK-MED ONCE IV ; Start 04/06/19 at 03:23; Stop 04/06/19 at 03:24; Status DC Folic Acid (FOLIC ACID SYRINGE for ER) 5 mg STK-MED ONCE IV ; Start 04/06/19 at 03:24; Stop 04/06/19 at 03:25; Status DC Ondansetron HCl (Zofran) 4 mg PRN Q4HRS PRN IV NAUSEA/VOMITING; Start 04/06/19 at 05:15; Stop 04/07/19 at 05:14 Acetaminophen (Tylenol) 650 mg PRN Q4HRS PRN PO FEVER; Start 04/06/19 at 05:00; Stop 04/07/19 at 04:59 Albuterol/ Ipratropium (Duoneb) 3 ml RTQID NEB ; Start 04/06/19 at 08:00; Stop 04/07/19 at 07:59 Multivitamins/ Minerals 10 ml/ Folic Acid 1 mg/ Thiamine HCl 100 mg/Lactated Ringer's 1,011.2 ml @ 1,011.2 mls/hr DAILY IV ; Start 04/06/19 at 09:00 Lactated Ringer's 1,000 ml @ 75 mls/hr 1X ONCE IV ; Start 04/06/19 at 05:15; Stop 04/06/19 at 18:34 Lorazepam (Ativan Inj) 1 mg QID IV ; Start 04/06/19 at 09:00 Albuterol/ Ipratropium (Duoneb) 3 ml QID NEB ; Start 04/06/19 at 09:00; Status UNV Sodium Bicarbonate (Sodium Bicarb Adult 8.4% Syr) 50 meq 1X ONCE IV Last administered on 04/06/19at 05:15; Start 04/06/19 at 05:15; Stop 04/06/19 at 05:16; Status DC Magnesium Sulfate 50 ml @ 25 mls/hr 1X ONCE IV ; Start 04/06/19 at 05:15; Stop 04/06/19 at 07:14; Status DC Clonidine HCl (Catapres Tts-1) 1 patch WEEKLY TD ; Start 04/06/19 at 09:00 Furosemide (Lasix) 20 mg 1X ONCE IVP ; Start 04/06/19 at 06:00; Stop 04/06/19 at 06:01; Status DC Active Scripts Active Coreg (Carvedilol) 25 Mg Tablet 6.25 Mg PO BIDWMEALS 30 Days Lipitor (Atorvastatin Calcium) 10 Mg Tablet 1 Tab PO QHS 30 Days Reported Zoloft (Sertraline Hcl) 50 Mg Tablet 1 Tab PO DAILY Pantoprazole Sodium 40 Mg Tablet.dr 1 Tab PO DAILY Nephro-Charlotte Tablet (Folic Acid/Vitamin B Comp W-C) 0.8 Mg Tablet 1 Tab PO DAILY Epidiolex (Cannabidiol (Cbd) Extract) 100 Mg/1 Ml Solution 75 Mg PO HS Megace Es (Megestrol Acetate) 625 Mg/5 Ml Oral.susp 625 Mg PO TIDAC Spiriva (Tiotropium [place]) 18 Mcg Cap.w.dev 18 Mcg IH DAILY LAST DOSE GIVEN: DATE: TODAY TIME: AM NEXT DOSE DUE: DATE: TOMORROW TIME: AM Mirtazapine 45 Mg Tablet 1 Tab PO QHS LAST DOSE GIVEN: NOT GIVEN THIS ADMISSION NEXT DOSE DUE: DATE: TODAY TIME: AT BEDTIME Vitamin B-12 (Cyanocobalamin (Vitamin B-12)) 1,000 Mcg Tablet 1,000 Mcg PO DAILY LAST DOSE GIVEN: DATE: TODAY TIME: AM NEXT DOSE DUE: DATE: TOMORROW TIME: AM ALLERGIES Allergies: Coded Allergies: erythromycin base (Verified Allergy, Intermediate, DIARRHEA, 08/28/18) Penicillins (Verified Allergy, Mild, Anaphylaxis, 08/28/18) TODAY PT DENIES ANY ALLERGY TO PCN ROS Review of Systems 14 point ROS conducted with pertinent positives noted above in HPI PHYSICAL EXAM General: Alert, No acute distress, Other (drowsy) HEENT: Atraumatic, Mucous membr. moist/pink Lungs: Other (fine expiratory wheezes) Heart: Regular rate, Normal S1, Normal S2, No murmurs Abdomen: Soft, No tenderness Extremities: No edema, Normal pulses Skin: No breakdown Neuro: Normal speech, Sensation intact Psych/Mental Status: Other (drowsy, agitated when awake) MUSCULOSKELETAL: No deformity VITALS Vital Signs Vital Signs Date Time Temp Pulse Resp B/P (MAP) Pulse Ox O2 Delivery O2 Flow Rate FiO2 04/06/19 07:27 89 18 147/91 (109) 100 Room Air 04/06/19 06:36 98.1 LABS LABS Laboratory Tests Test 04/06/19 04:14 White Blood Count 7.5 x10^3/uL (4.0-11.0) Red Blood Count 3.28 x10^6/uL (3.50-5.40) Hemoglobin 8.9 g/dL (12.0-15.5) Hematocrit 27.5 % (36.0-47.0) Mean Corpuscular Volume 84 fL (79-100) Mean Corpuscular Hemoglobin 27 pg (25-35) Mean Corpuscular Hemoglobin Concent 32 g/dL (31-37) Red Cell Distribution Width 15.0 % (11.5-14.5) Platelet Count 117 x10^3/uL (140-400) Neutrophils (%) (Auto) 63 % (31-73) Lymphocytes (%) (Auto) 22 % (24-48) Monocytes (%) (Auto) 13 % (0-9) Eosinophils (%) (Auto) 2 % (0-3) Basophils (%) (Auto) 1 % (0-3) Neutrophils # (Auto) 4.7 x10^3uL (1.8-7.7) Lymphocytes # (Auto) 1.7 x10^3/uL (1.0-4.8) Monocytes # (Auto) 0.9 x10^3/uL (0.0-1.1) Eosinophils # (Auto) 0.1 x10^3/uL (0.0-0.7) Basophils # (Auto) 0.1 x10^3/uL (0.0-0.2) Erythrocyte Sedimentation Rate 72 (0-25) Prothrombin Time 10.1 SEC (9.4-11.4) Prothromb Time International Ratio 1.0 (0.9-1.1) Activated Partial Thromboplast Time 26 SEC (23-33) Sodium Level 130 mmol/L (136-145) Potassium Level 4.2 mmol/L (3.5-5.1) Chloride Level 93 mmol/L (98-107) Carbon Dioxide Level 19 mmol/L (21-32) Anion Gap 18 (6-14) Blood Urea Nitrogen 24 mg/dL (7-20) Creatinine 1.3 mg/dL (0.6-1.0) Estimated GFR (Cockcroft-Gault) 50.7 Glucose Level 82 mg/dL (70-99) Calcium Level 9.9 mg/dL (8.5-10.1) Magnesium Level 1.5 mg/dL (1.8-2.4) Creatine Kinase 107 U/L (26-192) Troponin I Quantitative < 0.017 ng/mL (0-0.055) EY-Iaj-R-Type Natriuretic Peptide 1249 pg/mL (0-124) Albumin 4.2 g/dL (3.4-5.0) Ethyl Alcohol Level < 10 mg/dL (0-10) ECHOCARDIOGRAM Echocardiogram <Conclusion> The left ventricular systolic function is normal and the ejection fraction is within normal range. The Ejection Fraction is 60-65%. There is normal LV segmental wall motion. DATE: 02/23/19 142 ASSESSMENT/PLAN Assessment/Plan 1. Accelerated hypertension; now better controlled. Recent echo with preserved LV systolic function 2. Seizures 3. CASTILLO 4. Hyperlipidemia; statin 5. Alcohol abuse 6. Dyspnea. NT Pro BNP mildly elevated, but CXR without vascular congestion. Doubt overt HF. Most probably related to AE COPD 7. Tobaccoism; discussed/encouraged cessation Recommendations Resume home antiHTN therapy. Monitor to assess need for further titration D/c clonidine. Hydralazine IV PRN Encourage oral hydration Supportive care No further cardiac workup warranted at this time. SHU GARCIA APRN April 06, 2019 08:24
--- NOTE | 2019-04-06 08:28 | RAD ---
Single view pelvis dated 04/06/2019. No comparison available. Clinical data indication: Pain in hips. Unable to bear weight. FINDINGS: Single AP view pelvis shows normal bony alignment. No displaced fracture. No acute osseous or articular abnormality. Mild hypertrophic change of the bilateral hip joint and bilateral SI joint and pubic symphysis. IMPRESSION: No acute radiographic abnormality. Electronically signed by: Mirza Sweeney MD (04/06/2019 8:25 AM) [id number]
[2019-04-06] MEDS ORDERED: hydrALAZINE 20 MG/ML VIAL. IV PRN (08:30)
[2019-04-06 08:42] VITALS: BP 158/88
[2019-04-06] MEDS ORDERED: MVI, ADULT NO.4 WITH VIT K 10 ML, FOLIC ACID SYRINGE for ER 1 MG, THIAMINE INJ 100 MG i... IV SCH ×4 (09:00)
[2019-04-06] MEDS ORDERED: IPRATRPIUM/ALBUTEROL 0.5/2.5MG 3 ML NEBU. NEB SCH ×2 (09:00→16:00)
[2019-04-06] MEDS ORDERED: cloNIDine TTS-1 1 PATCH PATCH TD SCH (09:00)
[2019-04-06 11:09] VITALS: BP 140/85
[2019-04-06] MEDS ORDERED: MELA3TAB2 PO (11:57)
[2019-04-06] MEDS ORDERED: IPRA3AMP29 NEB (11:57)
[2019-04-06] MEDS ORDERED: MEGE20TA PO (11:57)
[2019-04-06] MEDS ORDERED: IPRATRPIUM/ALBUTEROL 0.5/2.5MG 3 ML NEBU. NEB PRN (13:30)
[2019-04-06] MEDS ORDERED: MELATONIN 3 MG TABLET PO PRN (13:45)
[2019-04-06] MEDS ORDERED: ALBUTEROL SULFATE 2.5 MG/3 ML NEBU. NEB PRN (14:00)
[2019-04-06] MEDS ORDERED: MEGESTROL 40 MG TABLET. PO SCH (14:00)
--- NOTE | 2019-04-06 14:45 | EKG ---
[address] [address] Test Date: 2019-04-06 Test Time: 03:06:57 Pat Name: JOYA TERRY Department: Room: [facility] 1 Gender: F [employer]ter: : 1960 Requested By: JACKIE LEAL Order Number: [id number] Reading MD: Ugo Teague Measurements Intervals [place] Rate: 81 P: 56 NC: 126 QRS: 3 QRSD: 74 T: 56 QT: 388 QTc: 456 Interpretive Statements SINUS RHYTHM QRS(T) CONTOUR ABNORMALITY CONSISTENT WITH ANTEROSEPTAL INFARCT PROBABLY OLD Electronically Signed On 04-28-2019 12:10:51 CDT by Ugo Teague
--- NOTE | 2019-04-06 15:42 | SSS ---
ADMIT DATE: 04/06/2019 HISTORY OF PRESENT ILLNESS: The patient is a 58-year-old -[place] female patient. She came to the Emergency Room stating that she had a seizure. She bit her tongue. She stated that she did not want to come in, but her daughter forced her to call the paramedics to bring her to the Emergency Room. According to her daughter, the patient is having tonic-clonic seizure of increased frequency for the past month and half. The seizure started in November of this year and has been to [facility] times this year for the same thing, which not taking any seizure medication. The patient recently admitted on 02/22/2019 for syncopal episode, which the patient said that it was probably seizure. She was seen in followup with ____. On arrival, she was nontoxic in appearance and she was alert, oriented, moves all her extremities and did not seem to be in a postictal state and she was investigated in the Emergency Room, has had lab work, which showed that she has normochromic normocytic anemia and thrombocytopenia. She has also hyponatremia and hypomagnesemia and was admitted for observation in the ICU. During the observation, she has had no further seizures. She was seen in consultation by the cardiology team for possible congestive heart failure, accelerated hypertension and basically no further workup was recommended and she was advised to resume her antihypertensive medication and should comply with taking them. The patient wanted to go home and adamantly refused to quit drinking alcohol and she has list of medication that need to be prescribed for her including her Zofran and Megace. She wants to also deny to have a nebulizer machine, which she was given prescription and was discharged home. PAST MEDICAL HISTORY: Significant for hypertension, generalized osteoarthritis, COPD, weight loss that is unintentional. According to her, she lost about 25 pounds from 04/2017 through 11/2017. Apparently, her weight at that time was down to 74 pounds. PAST SURGICAL HISTORY: Significant for two C-sections. She also has esophagogastroduodenoscopy and colonoscopy. ALLERGIES: She is allergic to PENICILLIN and ERYTHROMYCIN. FAMILY HISTORY: She has one brother who was killed at age 21. Her sister is 42 year old and healthy. Her brother is 45 years old and healthy. Her father in his 70s because of CVA and mother in her 70s, but she does not know the cause of her . SOCIAL HISTORY: She is , has 2 sons and 2 daughters. She smokes a pack a day. She drinks up to a pint of vodka on a daily basis. 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 MEDICATIONS: She is currently on following medications: She is on DuoNeb 0.5/2.5 mg 3 mL by nebulizer 4 times a day, Spiriva HandiHaler 1 inhalation once a day, atorvastatin calcium 10 mg at bedtime, carvedilol 6.25 mg twice a day with meals, sertraline 50 mg daily, Protonix 40 mg daily, megestrol acetate 20 mg 3 times a day, cyanocobalamin for B12 1000 mcg 1 tablet daily, folic acid and vitamin B complex for Nephro-Charlotte 1 tablet once a day, and melatonin mg at bedtime. PHYSICAL EXAMINATION: GENERAL: On arrival to the Emergency Room, she apparently looked well and was clearly in no apparent respiratory distress. She was nontoxic. VITAL SIGNS: Her heart rate was 88, blood pressure was 187/89, temperature was 98.5, respiratory rate was 18, and oxygen saturation was 99%. HEAD, EYES, EARS, NOSE, AND THROAT: Showed normocephalic, atraumatic. NECK: Supple. HEART: Showed normal first and second sounds. No gallop, rub, or murmur. CHEST: Clear to auscultation. No crepitation or rhonchi. ABDOMEN: Scaphoid, soft, nontender. NEUROLOGIC: Neurologically, she was according to ER physician, awake, alert, oriented x 3. Moves all extremities on request. She has no obvious neurological deficit. LABORATORY DATA: Has had extensive lab work in the Emergency Room showed that her white cell count was 7500, hemoglobin 8.9, hematocrit 27.5, MCV 84, and platelet count of 117,000. Her chemistry showed serum sodium of 130, potassium 4.2, chloride 93, bicarbonate 19, anion gap of 18, BUN 24, creatinine 1.3, estimated GFR was 50 mL per minute. Her glucose was 82, calcium was 9.9, magnesium was 1.5. CK was 107. Her beta natriuretic peptide was 1249 and albumin was 4.2. Her prothrombin time was 10.1, INR of 1, aPTT was 26. Her toxic screen showed that her blood alcohol level was less than 10. She has had a CT scan of the head and cervical spine. CT scan showed the ventricles and sulci are prominent consistent with age-related cerebral atrophy. There is supratentorial white matter hypoattenuation. This is a nonspecific finding, but it is commonly due to chronic small vessel ischemic disease in a patient of this age. No mass effect, midline shift, hemorrhage or obvious acute infarction is identified. Basal cisterns are patent. Bone windows demonstrate no significant calvarial abnormality. The visualized paranasal sinuses are clear, mastoid air cells are well aerated. There is no evidence of acute fracture or acute malalignment of the cervical spine. Left mandible periapical lucencies are partially seen. Moderate multilevel facet hypertrophy of the upper cervical spine, grade 1 anterolisthesis of C2- C3, C3-C4, and C4-C5. Alignment is otherwise maintained. There is moderate disk space narrowing and degenerative endplate, spurring and uncinate process, hypertrophy of C5/C6, and C6/C7. The craniovertebral junction is maintained. Her chest x-ray showed no graphic evidence of acute cardiopulmonary disease and her pelvic x-ray showed that there is no displaced fracture, no acute osseous articular abnormality, mild hypertrophic changes of the bilateral hip joint and bilateral sacroiliac joints and pubic symphysis. The patient has no witnessed seizures and is requesting to go home. She is adamant that she will not stop drinking as she has been drinking since age of 12 and that if she stopped drinking, she will . She was discharged home to continue on following medications: Atorvastatin calcium 10 mg at bedtime, carvedilol 6.25 mg twice a day, cyanocobalamin 1000 mcg p.o. daily, folic acid and vitamin B complex for Nephro-Charlotte 1 tablet daily, ipratropium bromide, albuterol sulfate 0.5-2.5 mg in 3 mL by nebulizer 4 times a day, megestrol acetate 20 mg 3 times a day, melatonin ____ mg at bedtime for insomnia, Protonix 40 mg daily, sertraline for Zoloft 50 mg daily and tiotropium bromide for Spiriva HandiHaler 1 inhalation once a day. FINAL DISCHARGE DIAGNOSES: Alcohol withdrawal seizures. I have a lengthy discussion with the patient, but she is adamant that she would not stop drinking alcohol. Other problems include hypertension, hyperlipidemia, gastroesophageal reflux disease, anorexia, weight loss for which she is on Megace. ADAM REED MD DR: DEENA/roxy JOB#: [id number] / [id number]
[2019-04-06] MEDS ORDERED: CARVEDILOL 6.25 MG TABLET PO SCH (17:00)
[2019-04-06] MEDS ORDERED: ATORVASTATIN CALCIUM 10 MG TABLET. PO SCH (21:00)
--- NOTE | 2019-04-06 22:14 | CONS ---
DATE OF CONSULTATION: 04/06/2019 NEUROLOGY CONSULTATION REFERRING PHYSICIAN: Dr. Villalobos REASON FOR CONSULTATION: Breakthrough seizure. HISTORY OF PRESENT ILLNESS: This is a 58-year-old right-handed female who was admitted through Emergency Room after she presented with generalized tonic-clonic seizure. According to her daughter, she had at least 5 seizures. In Emergency Room, the patient was not in postictal. However, she is alcoholic and the last drink was yesterday. The patient was given Ativan in the Emergency Room and she has been drowsy and has been sleepy since. She is awakable, but not able to provide any information at this point. However, she did complain of pain in the lower abdomen. She denies chest pain, shortness of breath or palpitation, dysarthria or dysphagia. PAST MEDICAL HISTORY: Significant for alcoholism. She drinks 1 pint of liquor daily. Hypertension, hyperlipidemia, COPD, GERD, DVT, depressions, osteoarthritis and chronic renal insufficiency. SOCIAL HISTORY: The patient is unemployed. She smokes 2 packs of cigarettes daily. She drinks alcohol heavily. She lives with her daughter. FAMILY HISTORY: Positive for hypertension, stroke and heart disease. REVIEW OF SYSTEMS: A 10-point review of systems as mentioned above in the history of present illness, otherwise unremarkable. CURRENT HOME MEDICATIONS: Lipitor 10 mg daily, carvedilol 6.25 mg twice daily, multivitamins, albuterol inhaler and Tylenol. CBD 100 mg in 1 mL, vitamin B12, folic acid, B complex, Megace 625 mg in 5 mL, mirtazapine 45 mg daily, pantoprazole 40 mg p.o. daily, sertraline, Zoloft 50 mg p.o. daily, Spiriva inhaler. ALLERGIES: PENICILLIN AND ERYTHROMYCIN BASE. PHYSICAL EXAMINATION: GENERAL: Well-developed, well-nourished female, not in acute distress. She weighs 42.5 kilos. VITAL SIGNS: Blood pressure 158/88, respiratory rate 16, pulse is 86 and regular, temperature 99.1, oxygen saturation 100% on room air. HEENT: Normocephalic, atraumatic, otherwise unremarkable. NECK: Supple. Negative for carotid bruit, lymphadenopathy or thyromegaly. LUNGS: With diminished breath sounds bilaterally. CARDIOVASCULAR: Regular rate and rhythm, normal S1, S2. ABDOMEN: Soft. Bowel sounds positive. EXTREMITIES: Negative for cyanosis, clubbing or pitting edema. NEUROLOGIC: Mental status: The patient is drowsy, but arousable. She follows 1-step commands. Further evaluation is limited at this time. Cranial nerves: The pupils are equal and reactive to light and accommodation. The extraocular movements are intact. There is no nystagmus. There is no facial motor or sensory deficit. Hearing appeared to be intact bilaterally. The palate is elevated symmetrically. Sternocleidomastoid muscles are powerful bilaterally. The patient shrugs her shoulders symmetrically, protrudes her tongue in the midline without fasciculation or atrophy. Motor: No focal muscle bulk was seen. The tone is normal. The strength is 4/5 throughout. Sensory examination revealed normal pinprick, and light touch senses throughout. Deep tendon reflexes were symmetric and hypoactive with absent Achilles responses. Gait not tested. DIAGNOSTIC DATA: Initial nonenhanced head CT scan revealed no evidence of acute intracranial process, but generalized atrophy and a CT of the cervical spine revealed evidence of moderate degenerative spondylosis, but no acute changes. Chest x-ray and pelvic x-ray revealed no abnormalities. LABORATORY DATA: CBC revealed white blood cells of 7500, hemoglobin 8.9, hematocrit 27.5, platelet count 117. Chemistry revealed sodium of 130, potassium 4.2, chloride 93, CO2 19, BUN 24, creatinine 1.3. Magnesium is normal at 1.51. Troponin level is normal, but elevated NPB at 1249. Urinalysis not performed and urine drug screen is negative. IMPRESSION: 1. Possible breakthrough seizure, etiology uncertain, probably due to alcohol withdrawal seizure. 2. Alcoholism, heavy smoker. 3. Multiple medical problems include hypertension, hyperlipidemia, gastroesophageal reflux disease, hypothyroidism, chronic obstructive pulmonary disease, anemia and chronic renal insufficiency. RECOMMENDATIONS: 1. Continue observation in ICU and watch for any recurrent seizure. 2. Treat underlying multiple medical problems. 3. Electroencephalogram. M Vinod GONZALES MD DR: BILL/roxy JOB#: [id number] / [id number]
[2019-04-07] MEDS ORDERED: PANTOPRAZOLE 40 MG TABLET. PO SCH (07:30)
[2019-04-07] MEDS ORDERED: NON FORMULARY ITEM (Tiotropium Bromide (Spiriva) 18 MCG) IH SCH (09:00)
[2019-04-07] MEDS ORDERED: SERTRALINE 50 MG TABLET. PO SCH (09:00)
[2019-04-07] MEDS ORDERED: CYANOCOBALAMIN (VITAMIN B-12) 1,000 MCG TABLET. PO SCH (09:00)
[2019-04-07] MEDS ORDERED: PRENATAL MULTIVITAMIN TABLET. PO SCH (09:00)
== END 2019-04-06 13:55 | disposition home or self-care (01) | DRG 683 ==
LOC: ER 02:45 → ICU 07:35
PROVIDERS: ADMIT Family Medicine; ATTEND Internal Medicine
DX: N17.9 Acute kidney failure, unspecified (principal); E87.1 Hypo-osmolality and hyponatremia; F10.239 Alcohol dependence with withdrawal, unspecified; I13.0 Hypertensive heart and chronic kidney disease with heart failure and stage 1 through stage 4 chronic kidney disease, or unspecified chronic kidney disease; G40.409 Other generalized epilepsy and epileptic syndromes, not intractable, without status epilepticus; D64.9 Anemia, unspecified; D69.6 Thrombocytopenia, unspecified; E03.9 Hypothyroidism, unspecified; E78.5 Hyperlipidemia, unspecified; E83.42 Hypomagnesemia; F17.210 Nicotine dependence, cigarettes, uncomplicated; I50.9 Heart failure, unspecified; J44.9 Chronic obstructive pulmonary disease, unspecified; K21.9 Gastro-esophageal reflux disease without esophagitis; M15.9 Polyosteoarthritis, unspecified; N18.9 Chronic kidney disease, unspecified; Z82.3 Family history of stroke; Z82.49 Family history of ischemic heart disease and other diseases of the circulatory system; F32.9 Major depressive disorder, single episode, unspecified; F41.9 Anxiety disorder, unspecified; Z86.718 Personal history of other venous thrombosis and embolism; Z79.01 Long term (current) use of anticoagulants
CPT/HCPCS: 36415; 70450; 71045; 72125; 72170; 80048; 82040; 82550; 83735; 83880; 84484; 85025; 85045; 85610; 85651; 85730; 87641; 93005; 94640; 96365; 96366; 96375; G0480; J1940; J2060; J3475; J7120; J7620; 99285-25

== ENCOUNTER 2019-05-10 22:06 | Emergency (ER) | payer SELFPAY ==
[~2019-05-10] VITALS: Ht 157.5 cm; Wt 42.5 kg
[~2019-05-10 22:06] MED LIST changes: +IPRA3AMP29 NEB; +MELA3TAB2 PO
--- NOTE | 2019-05-10 22:43 | PHYS DOC ---
Past History Past Medical History: Alcoholism, Anemia, Anxiety, COPD, Depression, DVT, Hypertension, Seizure, Other Past Surgical History: Smoking: Cigarettes Alcohol Use: Heavy Drug Use: None Adult General Chief Complaint Chief Complaint: syncope, unresponsive HPI HPI 58-year-old female presents via private vehicle with syncopal episode and unresponsiveness. The patient has been feeling increased shortness of breath for a couple of days at home. She is also had several episodes of vomiting today. Just prior to arrival, family found the patient and she was not responding to them. She was still breathing, but would not speak to them or "wake up". They brought her to the emergency room. Most of the history comes from family. They tell me that she has multiple medical problems and takes of her medications. They're unsure exactly what the medicines are. The timing the patient drinks alcohol heavily daily. She is a smoker. Review of Systems Review of Systems Constitutional: Denies fever or chills [] Eyes: Denies change in visual acuity, redness, or eye pain [] HENT: Denies nasal congestion or sore throat [] Respiratory: shortness of breath [] Cardiovascular: No additional information not addressed in HPI [] GI: Nausea, vomiting,[] : Denies dysuria or hematuria [] Musculoskeletal: Denies back pain or joint pain [] Integument: Denies rash or skin lesions [] Neurologic: Denies headache, focal weakness or sensory changes [] Endocrine: Denies polyuria or polydipsia [] All other systems were reviewed and found to be within normal limits, except as documented in this note. Current Medications Current Medications Current Medications Medications (Trade) Dose Ordered Sig/[facility] Start Time Stop Time Status Last Admin Dose Admin Albuterol/ Ipratropium (Duoneb) 3 ml 1X ONCE 05/10/19 23:00 05/10/19 23:01 Sodium Chloride 1,000 ml @ 1,000 mls/hr 1X ONCE 05/10/19 23:00 05/10/19 23:59 Allergies Allergies Allergies Coded Allergies Type Severity Reaction Last Updated Verified erythromycin base Allergy Intermediate DIARRHEA 08/28/18 Yes Penicillins Allergy Mild Anaphylaxis 08/28/18 Yes Physical Exam Physical Exam Constitutional: Well developed, thin, no acute distress, appears older than her age. [] HENT: Normocephalic, atraumatic, bilateral external ears normal, oropharynx dry, no oral exudates, nose normal. [] Eyes: PERRLA, EOMI, conjunctiva normal, no discharge. [] Neck: Normal range of motion, no tenderness, supple, no stridor. [] Cardiovascular:Heart rate regular rhythm, no murmur [] Lungs & Thorax: Bilateral breath sounds diminished but clear to auscultation. Rapid breathing[] Abdomen: Bowel sounds normal, soft, no tenderness, no masses, no pulsatile masses. [] Skin: Warm, dry, no erythema, no rash. [] Back: No tenderness, no CVA tenderness. [] Extremities: No tenderness, no cyanosis, no clubbing, ROM intact, no edema. [] Neurologic: Moving all extremities, opens eyes to voice[] Psychologic: unable to evaluate [] Current Patient Data Lab Results Laboratory Tests Test 05/10/19 22:27 Glucose (Fingerstick) 65 mg/dL (70-99) L EKG EKG Poor quality due to patient movement. Sinus rhythm, rate 100, normal axis, no obvious ST elevations or depressions[][] Radiology/Procedures Radiology/Procedures [] Impressions: Preliminary interpretation chest x-ray: Right middle lobe infiltrate. pulmonary edema Course & Med Decision Making Course & Med Decision Making Pertinent Labs and Imaging studies reviewed. (See chart for details) The patient was not responsive when she first admitted to the trauma bay. We immediately remove her clothing and began her workup. After placing supplemental oxygen for a couple of minutes, the patient began to spontaneously open her eyes. She had a pulse the entire time. She was disoriented at first, but was able to be calmed verbally. When I asked her her name, she was able to answer. She had a very dry oropharynx. The patient appears very thin. After her initial interventions of fluids and oxygen, the patient became more aware and alert. She was able to answer questions. She has been having multiple episodes of vomiting, but denies diarrhea. Duoneb was given. Her ABG showed a pH of 7.191, CO2 14.2, O2 68, bicarbonate 5.4. This indicates a metabolic acidosis with incomplete compensation, and decreased oxygenation. I gave the patient one amp of bicarbonate and a liter of normal saline. Her O2 saturation is 96% on 4 L nasal cannula. Her fingerstick blood sugar was 65 so an amp of D50 was given. I have ordered a second liter of saline. The patient's anion gap was 34, carbon dioxide 8, BUN 38, creatinine 2.2. A second liter of normal saline has been ordered. An additional amp of bicarbonate was normal. Her troponin is negative. Her chest x-ray suggestive of right middle lobe pneumonia. She has allergy to penicillin and erythromycin. I will treat her with levofloxacin 750 IV. Urinalysis is pending. The patient is tachycardia, mental status changes, I put tension, and a likely source of infection, so she meets criteria for sepsis. After fluids were started, the patient appears to be responsive. Her blood pressure has improved. Antibiotics have been ordered. Blood cultures and lactic acid were sent. Lactic acid is 2.6. Spoke with Dr. Enriquez and he has recommended that we transfer the patient to the ICU at [facility]. She will go by ambulance. 43 minutes of critical care time was spent on this patient exclusive of other billable procedures. [] Dragon Disclaimer Dragon Disclaimer This electronic medical record was generated, in whole or in part, using a voice recognition dictation system. Date and Time of Assessment Date: May 10, 2019 Time: 23:56 Vital Signs Vital Signs Vital Signs Date Time Temp Pulse Resp B/P (MAP) Pulse Ox O2 Delivery O2 Flow Rate FiO2 05/10/19 23:09 97.5 05/10/19 23:08 93 Nasal Cannula 4.0 05/10/19 23:05 106 30 05/10/19 22:56 120/78 (92) Respirations Respiratory Effort: Accessory muscles Respiratory Pattern: Tachypnea Cardiovascular Pulse Rhythm: Regular HEART: No murmurs noted Lung Sounds Breath Sounds: Diminished Capillary Refill Capillary Refill: Lt Hand < 3 seconds Peripheral Pulse Pulse Location: Monitor Pulse Strength: Normal (2+) Pulse Assessment Method: Monitor Integumentary Skin: Dry Skin Moisture: Dry Skin Turgor: Decreased Skin Color: dry Fingernail Color: WNL Departure Departure: Impression: Primary Impression: Pneumonia Additional Impressions: Acute kidney injury (nontraumatic) Metabolic acidosis Sepsis Disposition: 02 XFER SHT-TRM HOSP Condition: GUARDED Referrals: PCP,UNKNOWN (PCP) Problem Qualifiers Primary Impression: Pneumonia Pneumonia type: due to unspecified organism Laterality: right Lung location: middle lobe of lung Qualified Codes: J18.1 - Lobar pneumonia, unspecified organism Additional Impressions: Sepsis Sepsis type: sepsis due to unspecified organism Qualified Codes: A41.9 - Sepsis, unspecified organism HOWARD MCKEON DO May 10, 2019 22:43
[2019-05-10] MEDS ORDERED: IV NORMAL SALINE 1,000ML 1,000 ML IV ONE ×2 (23:00→23:30)
[2019-05-10] MEDS ORDERED: SODIUM BICARB ADULT 8.4% 50 MEQ/50 ML DISP.SYRIN. IV ONE (23:00)
[2019-05-10] MEDS ORDERED: IPRATRPIUM/ALBUTEROL 0.5/2.5MG 3 ML NEBU. NEB ONE (23:00)
[2019-05-10 23:03] LABS: BGAS PH 7.19 (7.35-7.45)
[2019-05-10 23:18] LABS: BASO % 0 % (0-3); EOS % 0 % (0-3); HEMATOCRIT 26.2 % (36.0-47.0); LYMPH % 9 % (24-48); MEAN CORPUSCULAR HEMOGLOBIN 27 pg (25-35); MEAN CORPUSCULAR HGB CONC 31 g/dL (31-37); MEAN CORPUSCULAR VOLUME 89 fL (79-100); MONO # 0.3 x10^3/uL (0.0-1.1); MONO % 3 % (0-9); NEUT # 9.7 x10^3uL (1.8-7.7); NEUT % 88 % (31-73); PLATELET COUNT 86 x10^3/uL (140-400); RED BLOOD COUNT 2.95 x10^6/uL (3.50-5.40); RED CELL DISTRIBUTION WIDTH 15.4 % (11.5-14.5); WHITE BLOOD COUNT 11.1 x10^3/uL (4.0-11.0)
[2019-05-10] MEDS ORDERED: ONDANSETRON PF 4 MG/2 ML VIAL. IV ONE (23:30)
[2019-05-10] MEDS ORDERED: DEXTROSE 50% 25 GM / 50ML DISP.SYRIN. IV ONE (23:30)
[2019-05-10 23:31] LABS: ALBUMIN 3.3 g/dL (3.4-5.0); ALBUMIN/GLOBULIN RATIO 0.7 (1.0-1.7); CALCIUM 10.7 mg/dL (8.5-10.1); CREATININE 2.2 mg/dL (0.6-1.0); GFR 27.6; POTASSIUM 4.7 mmol/L (3.5-5.1); TOTAL BILIRUBIN 0.6 mg/dL (0.2-1.0)
[2019-05-11] MEDS ORDERED: SODIUM BICARB ADULT 8.4% 50 MEQ/50 ML DISP.SYRIN. IV ONE
[2019-05-11 00:04] LABS: BARBITURATES NEG (NEG); BENZODIAZEPINES NEG (NEG); CANNABINOIDS NEG (NEG); COCAINE NEG (NEG); METHADONE NEG (NEG); OPIATES NEG (NEG); PHENCYCLIDINE NEG (NEG)
[2019-05-11 00:06] LABS: AMPHETAMINE/METHAMPHETAMINE NEG (NEG)
[2019-05-11 00:15] LABS: BILIRUBIN,URINE NEG (NEG); CLARITY,URINE CLEAR; COLOR,URINE YELLOW; GLUCOSE,URINE NEG (NEG); NITRITE,URINE NEG (NEG); UROBILINOGEN,URINE 1 mg/dL (0.2 mg/dL)
[2019-05-11 00:16] LABS: BACTERIA,URINE 0 /HPF (0-FEW); RBC,URINE OCC /HPF (0-2); SQUAMOUS EPITHELIAL CELL,UR FEW /LPF; WBC,URINE OCC /HPF (0-4)
--- NOTE | 2019-05-11 00:55 | EKG ---
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
[2019-05-11 01:44] LABS: % BANDS 12 % (0-9); % LYMPHS 18 % (24-48); % METAS 2 % (0-0); % MONOS 3 % (0-10); % MYELOS 2 % (0-0); % SEGS 63 % (35-66)
[2019-05-11 01:45] LABS: PLT ESTIMATE DECREASED (ADEQUATE)
[2019-05-11 01:57] VITALS: BP 98/57
--- NOTE | 2019-05-11 07:45 | RAD ---
CHEST AP ONLY History: Shortness of breath Comparison: April 06, 2019 Findings: Single view of the chest is submitted. There is prominent infiltrate of the right lung base, also some hazy right perihilar opacity. There is superior thoracic levoscoliosis. Cardiac silhouette is stable, within normal limits. There is degenerative change of the right shoulder. Impression: 1. There is right base infiltrate, also right perihilar opacity for which short-term follow-up after treatment advised. Electronically signed by: Xavier Batres MD (05/11/2019 7:42 AM) [id number]
== END 2019-05-11 01:58 | disposition short-term general hospital (02) ==
LOC: ER 22:06
DX: R65.20 Severe sepsis without septic shock (principal); N17.9 Acute kidney failure, unspecified; J18.1 Lobar pneumonia, unspecified organism; E87.2 Acidosis; R11.2 Nausea with vomiting, unspecified; F41.9 Anxiety disorder, unspecified; J44.9 Chronic obstructive pulmonary disease, unspecified; F32.9 Major depressive disorder, single episode, unspecified; I10 Essential (primary) hypertension; F17.210 Nicotine dependence, cigarettes, uncomplicated; F10.20 Alcohol dependence, uncomplicated; Z86.718 Personal history of other venous thrombosis and embolism; Z86.2 Personal history of diseases of the blood and blood-forming organs and certain disorders involving the immune mechanism; Z88.1 Allergy status to other antibiotic agents; Z88.0 Allergy status to penicillin; Y90.0 Blood alcohol level of less than 20 mg/100 ml
CPT/HCPCS: 36415; 71045; 80053; 80307; 81001; 82803; 82947; 83605; 83880; 84484; 85007; 85025; 87040; 93005; 94640; 96361; 96365; 96366; 96375; 96376; 99291; G0480; J1956; J2405; J7620; J7030

== ENCOUNTER 2019-12-06 14:14 | Emergency (ER) | payer BC ==
[~2019-12-06] VITALS: Ht 157.5 cm; Wt 42.5 kg
[~2019-12-06 14:14] MED LIST changes: +CYAN-25 PO; -CYAN10005 PO; -MEGE20TA PO; +MEGE20TA3 PO; -MELA3TAB2 PO; +MELA3TAB56 PO
[2019-12-06] MEDS ORDERED: IV NORMAL SALINE 500ML 500 ML IV ONE (14:30)
--- NOTE | 2019-12-06 14:48 | EKG ---
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
[2019-12-06 15:03] LABS: INFLUENZA A PATIENT NEGATIVE (NEGATIVE); INFLUENZA B PATIENT NEGATIVE (NEGATIVE)
[2019-12-06 15:23] LABS: BASO # 0.2 x10^3/uL (0.0-0.2); BASO % 1 % (0-3); EOS % 0 % (0-3); HEMATOCRIT 31.6 % (36.0-47.0); HEMOGLOBIN 9.4 g/dL (12.0-15.5); LYMPH # 1.2 x10^3/uL (1.0-4.8); LYMPH % 6 % (24-48); MEAN CORPUSCULAR HEMOGLOBIN 28 pg (25-35); MEAN CORPUSCULAR HGB CONC 30 g/dL (31-37); MEAN CORPUSCULAR VOLUME 94 fL (79-100); MONO # 0.3 x10^3/uL (0.0-1.1); MONO % 2 % (0-9); NEUT # 17.2 x10^3uL (1.8-7.7); NEUT % 91 % (31-73); PLATELET COUNT 107 x10^3/uL (140-400); RED BLOOD COUNT 3.37 x10^6/uL (3.50-5.40); RED CELL DISTRIBUTION WIDTH 15.8 % (11.5-14.5); WHITE BLOOD COUNT 18.9 x10^3/uL (4.0-11.0)
--- NOTE | 2019-12-06 15:25 | RAD ---
EXAM: CHEST 1 VIEW History: Shortness of breath COMPARISON: 05/10/2019 TECHNIQUE: Single portable radiograph of the chest FINDINGS: The cardiac silhouette is unremarkable. Airspace opacity identified in the right lung base likely pneumonia or atelectasis. The costophrenic sulci are clear and well demarcated. IMPRESSION: Airspace opacity identified in the right lung base likely pneumonia or atelectasis. Follow-up to resolution. Electronically signed by: Armaan Rothman MD (12/06/2019 3:22 PM) [id number]
[2019-12-06] MEDS ORDERED: PROCHLORPERAZINE 10 MG/2 ML VIAL. IV ONE (15:30)
--- NOTE | 2019-12-06 15:30 | PHYS DOC ---
Past History Past Medical History: Alcoholism, Anemia, Anxiety, COPD, Depression, DVT, Hypertension, Seizure, Other Past Surgical History: Smoking: Cigarettes Alcohol Use: Heavy Drug Use: None Adult General Chief Complaint Chief Complaint: SHORTNESS OF BREATH HPI HPI Patient is a 59-year-old female with a history of alcohol abuse history of cardiac arrest secondary to hypoxemic respiratory failure back in April. She is debility and deconditioning she has been complaining of increasing shortness of breath cough she has abdominal pain she is feeling weak vomiting unable keep anything down over the last 2-3 days subjective relief feels cold all the time. She also has back pain and neck pain that is chronic but is getting much worse. She has occasional symptoms of alcohol according to the daughter who is at the bedside but she is feeling worse. [] Review of Systems Review of Systems Constitutional: Eyes: Denies change in visual acuity, redness, or eye pain [] Cardiovascular: No additional information not addressed in HPI [] GI: Integument: Denies rash or skin lesions [] All other systems were reviewed and found to be within normal limits, except as documented in this note. Current Medications Current Medications Current Medications Medications (Trade) Dose Ordered Sig/Suzanne Start Time Stop Time Status Last Admin Dose Admin Fentanyl Citrate (Fentanyl 2ml Vial) 50 mcg 1X ONCE 12/06/19 14:45 12/06/19 14:46 DC 12/06/19 14:49 50 MCG Sodium Chloride 500 ml @ 0 mls/hr 1X ONCE 12/06/19 14:30 12/06/19 14:31 DC 12/06/19 14:49 999 MLS/HR Allergies Allergies Allergies Coded Allergies Type Severity Reaction Last Updated Verified erythromycin base Allergy Intermediate DIARRHEA 08/28/18 Yes Penicillins Allergy Mild Anaphylaxis 08/28/18 Yes Physical Exam Physical Exam Constitutional: Well developed, cachectic in moderate distress HENT: Normocephalic, atraumatic, bilateral external ears normal, oropharynx moist, no oral exudates, nose normal. [] Eyes: PERRLA, EOMI, conjunctiva normal, no discharge. [] Neck: Normal range of motion, no tenderness, supple, no stridor. [] Cardiovascular:Heart rate regular rhythm, no murmur [] Lungs & Thorax: Coarse breath sounds at the right lung base there is some mild tachypnea patient does appear to be in some distress but really no overt wheezing she did get 2 breathing treatments prior to arrival to the daughter Abdomen: Bowel sounds normal, soft, diffuse tenderness, no masses, no pulsatile masses. [] Skin: Warm, dry, no erythema, no rash. [] Back:diffuse ttp note. Extremities: No tenderness, no cyanosis, no clubbing, ROM intact, no edema. [] Neurologic: Alert and oriented X 3, normal motor function, normal sensory functi on, no focal deficits noted. [] Psychologic: mood anxious Current Patient Data Vital Signs Vital Signs Date Time Temp Pulse Resp B/P (MAP) Pulse Ox O2 Delivery O2 Flow Rate FiO2 12/06/19 15:02 96 24 161/86 (111) 98 Room Air 12/06/19 14:24 97.9 Lab Results Laboratory Tests Test 12/06/19 14:23 Influenza Type A (Rapid) Negative (NEGATIVE) Influenza Type B (Rapid) Negative (NEGATIVE) EKG EKG []Sinus rhythm QTC is adequate no ischemia or STEMI was identified interpreted by me the time of encounter. Chest x-ray interpreted by me showed evidence of a right lower lobe pneumonia that looks slightly improved compared to prior. Radiology/Procedures Radiology/Procedures [] Impressions: FINDINGS: The cardiac silhouette is unremarkable. Airspace opacity identified in the right lung base likely pneumonia or atelectasis. The costophrenic sulci are clear and well demarcated. IMPRESSION: Airspace opacity identified in the right lung base likely pneumonia or atelectasis. Follow-up to resolution. Electronically signed by: Armaan Rothman MD (12/06/2019 3:22 PM) [id number] DICTATED AND SIGNED BY: ARMAAN ROTHMAN MD DATE: 12/06/19 1522 CC: AYANA PUENTE MD; PCP,UNKNOWN ~ Course & Med Decision Making Course & Med Decision Making Pertinent Labs and Imaging studies reviewed. (See chart for details) []59-year-old female with history of alcohol abuse deconditioning debility history of cardiac arrest back in April related to hypoxemic respiratory failure who is presenting with abdominal pain vomiting decreased by mouth intake shortness of breath found to have a right lower lobe pneumonia in addition pancreatitis in addition severe acidosis pH is 7.14 PCO2 of 12 bicarbonate 4.3 blood gas was within normal limits differential would include severe alcoholic ketoacidosis versus toxic alcohol waiting for the serum osmols at this time. Critical care time was 45 minutes exclusive of procedures. for severe metabolic acidosis ER course when the patient returned from CT scan, she did have a decrease in mental status. She was quite tachypneic initially and before I saw the lab work we did give her some pain control and anxiolysis due to her prior history of alcohol withdrawal seizures. Due to her mental status and the severe at about acidosis I was concerned that she would not be able to keep up with her tachypnea. I had a long discussion with 3 family members the daughter that was here at the bedside as well as a son named Luís and a sister named nellie. I reviewed the [facility] note from last year and that clearly stated the patient is a DNR/DNI. They each of them all 3 of them said that that is completely faults they want her to be full code they want us to do everything we can to get her back. They said they don't know why that was documented that they thought they were just talking about whether to do a tracheostomy or not. They're quite frustrated about this actually. I went so far is to read work per report was documented in the palliative care note dated April 2019. They said that is faults they are frustrated they want her to be resuscitated if necessary. I actually asked the patient as well she is fairly somnolent the emergency room but she did not her head yes when I asked her if she would want to be connected to a ventilator. Procedure note: Intubation indication severe metabolic acidosis and altered mental status etomidate and succinylcholine were used Yuan for grade 1 view 7.5 tube no complications post intubation sedation with propofol chest x-ray is pending at this time. I did speak with Dr. Beltrán was accepted this patient to the ICU over at [facility]. I did start a bicarbonate drip I did give Levaquin antibiotics for sepsis I have a call out to the applied exercise physiologist at this time. Waiting for call back, initially was paged at [phone] at the time of the intubation. Currently 1655 a bed is available the ICU at [facility] we will transport her shortly. I have broad differential diagnosis for the severe metabolic acidosis and lactic acid is normal the blood sugar is normal the creatinine is basically close to normal differential includes alcoholic ketoacidosis versus toxic alcohol waiting for serum SYMPTOMS at this time I have not yet calculated osmole gap and the patient is ready for transfer. Magnesium supplementation was ordered. CT scan abdomen and pelvis was reviewed nonspecific could be colitis, pancreatitis also noted on lab work. That could be contributing to the overall picture as well. Dragon Disclaimer Dragon Disclaimer This electronic medical record was generated, in whole or in part, using a voice recognition dictation system. Departure Departure: Impression: Primary Impression: Pneumonia Additional Impression: METABOLIC ACIDEMIA, UNSPECIFIED Disposition: 02 XFER SHT-TRM HOSP Condition: CRITICAL Referrals: PCP,UNKNOWN (PCP) Problem Qualifiers AYANA PUENTE MD Dec 06, 2019 15:30
[2019-12-06 15:41] LABS: ALBUMIN 3.9 g/dL (3.4-5.0); ALBUMIN/GLOBULIN RATIO 0.8 (1.0-1.7); ALK PHOS 121 U/L (46-116); ALT (SGPT) 28 U/L (14-59); AST (SGOT) 94 U/L (15-37); BLOOD UREA NITROGEN 19 mg/dL (7-20); BUN/CREATININE RATIO 16 (6-20); CHLORIDE 97 mmol/L (98-107); CREATININE 1.2 mg/dL (0.6-1.0); GFR 55.4; GLUCOSE 90 mg/dL (70-99); LIPASE 1111 U/L (73-393); MAGNESIUM 1.4 mg/dL (1.8-2.4); POTASSIUM 4.9 mmol/L (3.5-5.1); SODIUM 138 mmol/L (136-145); TOTAL BILIRUBIN 0.6 mg/dL (0.2-1.0); TOTAL PROTEIN 9.1 g/dL (6.4-8.2)
[2019-12-06 15:43] LABS: ANION GAP 36 (6-14); CARBON DIOXIDE < 5 mmol/L (21-32)
[2019-12-06] MEDS ORDERED: SODIUM BICARBONATE IVF 50 MEQ in IV DEXTROSE 5% 1,000 ML IV ONE (15:45)
[2019-12-06] MEDS ORDERED: IV NORMAL SALINE 1,000ML 1,000 ML IV ONE (15:45)
[2019-12-06] MEDS ORDERED: 1/2 NORMAL SALINE IV ONE (16:00)
[2019-12-06] MEDS ORDERED: SODIUM BICARBONATE IVF IV ONE (16:00)
[2019-12-06] MEDS ORDERED: IOHEXOL 350 MG/ML 100 ML VIAL. IV ONE (16:00)
[2019-12-06] MEDS ORDERED: SODIUM BICARB ADULT 8.4% 50 MEQ/50 ML DISP.SYRIN. ONE (16:00)
[2019-12-06 16:01] LABS: SALIC 8.1 mg/dL (2.8-20.0)
[2019-12-06 16:02] LABS: ACETAMIN < 2.0 mcg/mL (10-30)
[2019-12-06] MEDS ORDERED: SUCCINYLCHOLINE 200 MG/10 ML VIAL. ONE (16:33)
[2019-12-06] MEDS ORDERED: SODIUM BICARBONATE 50 MEQ/50 ML VIAL. ONE ×2 (16:34→17:05)
--- NOTE | 2019-12-06 16:34 | RAD ---
Exam: CT abdomen pelvis with contrast INDICATION: Severe abdominal pain and acidosis TECHNIQUE: Sequential axial images through the abdomen and pelvis obtained following the administration of 60 mL of Omni 300 IV contrast. Sagittal and coronal reformatted images were reconstructed from the axial data and reviewed. Comparisons: Chest x-ray same day FINDINGS: Evaluation is limited secondary to respiratory motion. Heart size is normal. No pericardial effusion. Patchy airspace disease is noted at the lung bases greater on the right. No pleural effusion. There is diffuse decreased attenuation of the liver parenchyma. Spleen, pancreas, gallbladder and adrenals are unremarkable. Left kidney is atrophic. No perinephric inflammation or hydronephrosis. No renal or ureteral calculi are identified. Bladder is distended and appears thin-walled. Uterus is nonenlarged. No abnormal adnexal mass. Mild wall thickening involving the descending and sigmoid colon. Remainder of the large and small bowel are unremarkable. Appendix is normal. No free intra-abdominal air or fluid. No obstruction. Abdominal aorta has a normal course and caliber. Abdominal vasculature is patent. No enlarged intra-abdominal lymph nodes are identified. No suspicious osseous lesions or acute fractures. IMPRESSION: 1. Evaluation is markedly limited secondary to respiratory motion. 2. Wall thickening involving the descending and sigmoid colon, favored represent colitis. Nonspecific in etiology and may be infectious or inflammatory. 3. Decreased attenuation of the liver, may report present steatosis/hepatitis. Correlate with LFTs. 4. Patchy airspace disease in lung bases bilaterally which is difficult to characterize given degree respiratory motion. This may be infectious or inflammatory in etiology. Exposure: One or more of the following in the visualized dose reduction techniques were utilized for this examination: 1. Automated exposure control 2. Adjustment of the MA and/or KV according to patient size 3. Use of iterative of reconstructive technique Electronically signed by: Jennifer De Jesus MD (12/06/2019 4:31 PM) [facility]
[2019-12-06] MEDS ORDERED: PROPOFOL 20 ML IV ONE (16:39)
[2019-12-06] MEDS ORDERED: PROPOFOL 100 ML IV ONE (16:39)
[2019-12-06] MEDS ORDERED: MAGNESIUM SULFATE 1GM 100 ML IV ONE (16:45)
--- NOTE | 2019-12-06 17:10 | RAD ---
Exam: Chest one view INDICATION: Intubation TECHNIQUE: Frontal view of the chest Comparisons: 12/06/2019 FINDINGS: Endotracheal tube with tip approximately 2 cm above the sid. The cardiomediastinal silhouette and pulmonary vessels are within normal limits. Patchy bilateral airspace disease noted, similar to prior exam. No pleural effusion. IMPRESSION: 1. Lines and tubes described above. 2. Persistent patchy bilateral airspace disease which is similar when compared to the prior exam. Electronically signed by: Jennifer De Jesus MD (12/06/2019 5:08 PM) [facility]
[2019-12-06] MEDS ORDERED: IOHEXOL 300 MG/ML 75 ML VIAL. IV ONE (17:15)
[2019-12-06 17:30] VITALS: BP 142/82
[2019-12-06 17:40] LABS: % BANDS 13 % (0-9); % LYMPHS 4 % (24-48); % METAS 1 % (0-0); % MONOS 4 % (0-10); % SEGS 78 % (35-66); NUCLEATED RBC 1; PLT ESTIMATE DECREASED (ADEQUATE)
[2019-12-06 17:42] LABS: ANISOCYTOSIS SLIGHT; HYPOCHROMIA SLIGHT; POLYCHROMASIA PRESENT; TARGET CELLS OCC; TEAR DROP CELLS OCC; TOXIC GRANULATION PRESENT; TOXIC VACUOLATION PRESENT
[2019-12-06] MEDS ORDERED: PROPOFOL 10,000 MCG/ML (20ML) VIAL IV ONE (17:45)
[2019-12-06] MEDS ORDERED: SODIUM BICARB ADULT 8.4% 50 MEQ/50 ML DISP.SYRIN. IV ONE (17:45)
[2019-12-06] MEDS ORDERED: PROPOFOL 10,000 MCG/ML (100ML) VIAL IV ONE (17:45)
[2019-12-06] MEDS ORDERED: SUCCINYLCHOLINE 200 MG/10 ML VIAL. IV ONE (18:00)
[2019-12-06] MEDS ORDERED: ETOMIDATE 40 MG/20 ML VIAL. IV ONE (18:00)
[2019-12-06] MEDS ORDERED: VECURONIUM 10 MG VIAL. IV ONE (19:30)
[2019-12-10 12:10] LABS: BGAS PH 7.14 (7.35-7.45)
== END 2019-12-06 17:35 | disposition short-term general hospital (02) ==
LOC: ER 14:14
DX: J18.9 Pneumonia, unspecified organism (principal); E87.2 Acidosis; R10.84 Generalized abdominal pain; F41.9 Anxiety disorder, unspecified; J44.9 Chronic obstructive pulmonary disease, unspecified; F31.9 Bipolar disorder, unspecified; Z86.718 Personal history of other venous thrombosis and embolism; I10 Essential (primary) hypertension; F10.20 Alcohol dependence, uncomplicated; F17.210 Nicotine dependence, cigarettes, uncomplicated; Z86.2 Personal history of diseases of the blood and blood-forming organs and certain disorders involving the immune mechanism; Z98.890 Other specified postprocedural states; Z88.1 Allergy status to other antibiotic agents; Z88.0 Allergy status to penicillin; Y90.0 Blood alcohol level of less than 20 mg/100 ml
CPT/HCPCS: 31500; 36415; 71045; 74177; 80053; 80329; 82803; 83605; 83690; 83735; 83930; 84484; 85007; 85025; 87040; 87804; 93005; 96365; 96366; 96368; 96375; 96376; 99285; G0480; J0330; J0780; J1956; J2060; J2704; J3010; J7040; Q9967; 82003; 99291-25; J7030